=== PATIENT | male | born 1935 | race Caucasian/White ===

== ENCOUNTER 2020-02-12 13:23 | Outpatient (REF) | payer MEDICARE, SELFPAY | END 2020-02-12 13:24 | disposition home or self-care (01) | LOC: HO.LAB 13:23 | PROVIDERS: Visit Provider Internal Medicine | DX: Z20.828 Contact with and (suspected) exposure to other viral communicable diseases (principal) | CPT/HCPCS: C9803; U0003 ==

== ENCOUNTER 2020-03-05 12:51 | Inpatient (IN) | payer MEDICARE, SELFPAY ==
[2020-03-05 13:07] VITALS: BP 140/83; BP 144/70; PULSE 115; PULSE 54; RESP 20; TEMP 37.9; O2SAT 93; O2SAT 94; BMI 24.0
--- NOTE | 2020-03-05 13:11 | ED_ITS ---
HPI - General Adult General Chief complaint: General Medical Stated complaint: n/v/cp Time Seen by Provider: 03/05/20 13:44 Source: patient Mode of arrival: ambulatory Limitations: no limitations History of Present Illness HPI narrative: Patient presents to ED for body aches, fever, chills, chest pain, nausea, vomiting for the past 4 days. As per EMS report patient had exposure to COVID as per family members. Patient denies any dysuria or diarrhea. Related Data Allergies Allergy/AdvReac Type Severity Reaction Status Date / Time Penicillins [PENICILLINS] Allergy Unknown RASH Verified 03/05/20 13:11 Review of Systems Review of Systems: Yes all other systems are reviewed and are negative Constitutional: Constitutional: Reports as per HPI, Reports no additional constitutional complaints, Reports chills, Reports fatigue, Reports fever(s) and Reports headache(s) Eyes: Eyes: Reports as per HPI and Reports no additional eye complaints ENT: Reports system reviewed and no additional complaints, except as documented, Reports as per HPI and Reports headache(s) Cardiovascular: Cardiovascular: Reports as per HPI and Reports no additional cardiovascular complaints Respiratory: Respiratory: Reports as per HPI and Reports no additional respira tory complaints Gastrointestinal: Gastrointestinal: Reports as per HPI and Reports no additional gastrointestinal complaints Genitourinary: Genitourinary: Reports no additional male genitourinary complaints and Reports as per HPI Musculoskeletal: Musculoskeletal: Reports no additional musculoskeletal complaints and Reports as per HPI Neurologic: Reports system reviewed and no additional complaints, except as documented, Reports as per HPI and Reports headache(s) Psychiatric: Psychiatric: Reports no additional psychiatric complaints and Reports as per HPI Endocrine: Endocrine: Reports fatigue PMFSH Social History Social History Alcohol intake: never Smoked in Last 30 Days: No Use of substances other than those prescribed or required for medical reasons: No Advance Directives: No Advance Directives Information Provided: No Physical Exam Vital Signs: Vital Signs: Last Vital Signs Temp 99.3 F 03/05/20 15:14 Pulse 102 H 03/05/20 15:14 Resp 21 H 03/05/20 15:14 BP 120/75 03/05/20 15:14 Pulse Ox 96 03/05/20 15:14 Body Mass Index 24.0 Const: General: cooperative and acute distress Orientation/consciousness: patient oriented x3 HENMT: Head: Yes normal to inspection and Yes No palpable skull fracture present Eyes: Other: Negative for photophobia. General: appearance normal, both eyes and all related structures Neck: Neck: Yes normal visual inspection, Yes full ROM, Yes no lymphade nopathy, Yes no meningeal signs, Yes trachea midline, Yes supple and No tender Chest: Chest palpation & inspection: normal inspection of the chest and normal palpation of entire chest wall Resp: Effort & Inspection: normal respiratory effort and able to speak in complete sentences Auscultation: clear to auscultation bilaterally Cardio: Jugular venous distension: no JVD Heart sounds: S1 normal heart sound present and S2 normal heart sound present GI: Inspection: Yes normal to inspection and No abdominal wall ecchymosis Palpation (GI): Soft to palpation, not firm, nontender, no guarding and not rigid : General: No CVA tenderness and Yes no CVA tenderness Back/Spine/Pelvis: Back: no CVA tenderness, No CVA tenderness and No back tenderness Skin: General skin exam: no rashes or lesions noted Neuro: General: patient oriented x3, gait normal, no meningeal signs and CN's II-XI intact bilaterally Cranial nerves: Yes CN's II-XII intact bilaterally Extrem: General: Yes normal to inspection and Yes full ROM Psych: Appearance: grossly normal and well kempt Course Course Course Narrative: Seem like he is having viral syndrome. Will have labs, lactic acid, blood culture, chest x-ray, and COVID swab sent. Reevaluation(s) Reevaluation #1: Labs came back and shows LEI. Patient is coronavirus positive. Patient denies any shortness of breath. Will admit patient. Time: 14:40 Reevaluation #2: Case presented hospitalist for admission. Time: 15:26 Reevaluation #3: Hospitalist recommend V/Q scan due to elevated D-dimer and alt maame procalcitonin is normal and presently is a viral infection and no antibiotic indicated he recommended given patient Levaquin. Troponin ordered Time: 16:15 Medical Decision Making MDM Narrative Medical decision making narrative: COVID Lab Data Result diagrams: 03/05/20 13:29 03/05/20 13:29 Labs: Lab Results 03/05/20 03/05/20 03/05/20 Range/Units 13:29 13:29 13:29 WBC 3.9 L (4.8-10.8) X10*3/uL RBC 4.21 L (4.60-5.80) X10*6/uL Hgb 13.6 L (14.0-18.0) g/dl Hct 39.1 L (42-52) % MCV 92.9 (80-98) fL MCH 32.3 (27.0-33.0) pg MCHC 34.8 (31.0-36.0) g/dl RDW 12.6 (11.0-16.0) % Plt Count 152 L (160-400) X10*3/uL MPV 10.3 (9.4-12.4) fL Immature Gran % (Auto) 0.3 (0.0-0.4) % Neut % (Auto) 62.5 (45-73) % Lymph % (Auto) 20.0 (20-40) % Nicholas % (Auto) 16.9 H (2-11) % Eos % (Auto) 0.0 (0-4) % Baso % (Auto) 0.3 (0-2) % Lymph # (Auto) 0.8 L (1.2-4.9) X10*3/uL Nicholas # (Auto) 0.7 (0.1-1.2) X10*3/uL Eos # (Auto) 0.0 (0.0-0.4) X10*3/uL Baso # (Auto) 0.0 (0.0-0.2) X10*3/uL Abs Immat Gran (auto) 0.01 (0.00-0.03) X10*3/uL Absolute Neuts (auto) 2.4 (2.0-8.3) X10*3/uL Absolute Nucleated RBC 0.000 (0.0-0.012) X10*3/uL Nucleated RBC % (auto) 0.0 (0.0-0.2) /100WBC PT 13.2 H (10.8-13.0) SEC INR 1.1 (0.9-1.1) APTT 28.8 (24.1-38.0) SEC D-Dimer 382 NG/ML Sodium 127 L (135-145) mmol/L Potassium 4.3 (3.3-5.1) mmol/l Chloride 93 L (96-108) mmol/L Carbon Dioxide 18 L (22-29) mmol/L Anion Gap 20 (12-20) BUN 35 H (9-16) mg/dL Creatinine 1.41 H (0.5-1.4) mg/dL Estim Creat Clear Calc 35.1 Estimated GFR 48 Random Glucose 347 H (60-115) mg/dL Lactic Acid (0.5-2.0) mmol/L Calcium 8.3 L (8.4-10.2) mg/dL Ferritin 468 H (20-250) ng/mL Total Bilirubin 0.4 (0.0-1.0) mg/dL Direct Bilirubin 0.2 (0.0-0.5) mg/dL AST 33 (5-37) U/L ALT 37 (0-40) U/L Alkaline Phosphatase 61 (39-117) U/L Lactate Dehydrogenase 268 (118-273) U/L Total Protein 7.4 (6.5-8.0) g/dL Albumin 4.4 (3.5-5.0) g/dL Procalcitonin ng/mL Coronavirus (PCR) (Negative) Influenza Type A (PCR) (Negative) Influenza Type B (PCR) (Negative) RSV RNA Qual (PCR) (Negative) 03/05/20 03/05/20 03/05/20 Range/Units 13:29 13:44 13:44 WBC (4.8-10.8) X10*3/uL RBC (4.60-5.80) X10*6/uL Hgb (14.0-18.0) g/dl Hct (42-52) % MCV (80-98) fL MCH (27.0-33.0) pg MCHC (31.0-36.0) g/dl RDW (11.0-16.0) % Plt Count (160-400) X10*3/uL MPV (9.4-12.4) fL Immature Gran % (Auto) (0.0-0.4) % Neut % (Auto) (45-73) % Lymph % (Auto) (20-40) % Nicholas % (Auto) (2-11) % Eos % (Auto) (0-4) % Baso % (Auto) (0-2) % Lymph # (Auto) (1.2-4.9) X10*3/uL Nicholas # (Auto) (0.1-1.2) X10*3/uL Eos # (Auto) (0.0-0.4) X10*3/uL Baso # (Auto) (0.0-0.2) X10*3/uL Abs Immat Gran (auto) (0.00-0.03) X10*3/uL Absolute Neuts (auto) (2.0-8.3) X10*3/uL Absolute Nucleated RBC (0.0-0.012) X10*3/uL Nucleated RBC % (auto) (0.0-0.2) /100WBC PT (10.8-13.0) SEC INR (0.9-1.1) APTT (24.1-38.0) SEC D-Dimer NG/ML Sodium (135-145) mmol/L Potassium (3.3-5.1) mmol/l Chloride (96-108) mmol/L Carbon Dioxide (22-29) mmol/L Anion Gap (12-20) BUN (9-16) mg/dL Creatinine (0.5-1.4) mg/dL Estim Creat Clear Calc Estimated GFR Random Glucose (60-115) mg/dL Lactic Acid 1.3 (0.5-2.0) mmol/L Calcium (8.4-10.2) mg/dL Ferritin (20-250) ng/mL Total Bilirubin (0.0-1.0) mg/dL Direct Bilirubin (0.0-0.5) mg/dL AST (5-37) U/L ALT (0-40) U/L Alkaline Phosphatase (39-117) U/L Lactate Dehydrogenase (118-273) U/L Total Protein (6.5-8.0) g/dL Albumin (3.5-5.0) g/dL Procalcitonin 0.24 ng/mL Coronavirus (PCR) POSITIVE A (Negative) Influenza Type A (PCR) NEGATIVE (Negative) Influenza Type B (PCR) NEGATIVE (Negative) RSV RNA Qual (PCR) NEGATIVE (Negative) ECG Data Interpretation: Sinus tach with PVCs. Ventricular rate 115. SD interval 182. QRS 82. QTC 448 Discharge Plan Discharge Clinical Impression: COVID-19 Patient Disposition: Admitted As Inpatient
--- NOTE | 2020-03-05 13:15 | XR_ITS ---
EXAMINATION: XR CHEST CLINICAL INFORMATION: Covid exposure. COMPARISON: Chest 09/09/2018. TECHNIQUE: Frontal view of the chest was obtained. FINDINGS: The lungs are hypoexpanded with bilateral parahilar increased markings and bandlike density in both midlungs likely infiltrate or atelectasis. Outside and pulmonary vascularity is normal. No gross bony abnormality seen. XR/XR chest 1V IMPRESSION: Hypoexpanded lungs with bilateral midlung patchy infiltrate or atelectasis. The findings are new since 09/09/2018 exam.
[2020-03-05 13:50] LABS: MANUAL DIFF FLAG NO
[2020-03-05 13:52] LABS: Basophils Percent Auto 0.3 % (0-2); Hematocrit 39.1 % (42-52); Hemoglobin 13.6 g/dl (14.0-18.0); Imm Gran Abs Auto 0.01 X10*3/uL (0.00-0.03); Imm Gran Pct Auto 0.3 % (0.0-0.4); Lymphocytes Absolute Auto 0.8 X10*3/uL (1.2-4.9); Mean Corpuscular HGB Conc 34.8 g/dl (31.0-36.0); Mean Corpuscular Hemoglobin 32.3 pg (27.0-33.0); Mean Corpuscular Volume 92.9 fL (80-98); Mean Platelet Volume 10.3 fL (9.4-12.4); Monocytes Absolute Auto 0.7 X10*3/uL (0.1-1.2); Monocytes Percent Auto 16.9 % (2-11); Neutrophils Absolute Auto 2.4 X10*3/uL (2.0-8.3); Neutrophils Percent Auto 62.5 % (45-73); Platelet Count 152 X10*3/uL (160-400); Red Blood Count 4.21 X10*6/uL (4.60-5.80); Red Cell Distribution Width 12.6 % (11.0-16.0); White Blood Count 3.9 X10*3/uL (4.8-10.8)
[2020-03-05] MEDS: Acetaminophen 325 MG TABLET 650 MG PO ×2 (13:56→19:04)
[2020-03-05] MEDS: 0.9 % Sodium Chloride 1,000 ML 999 ML IV ×2 (13:56→17:24)
--- NOTE | 2020-03-05 13:56 | ECG_ITS ---
Test Reason : WEAKNESS Blood Pressure : / mmHG Vent. Rate : 115 BPM Atrial Rate : 115 BPM P-R Int : 182 ms QRS Dur : 082 ms QT Int : 324 ms P-R-T Axes : 041 -34 061 degrees QTc Int : 448 ms Sinus tachycardia with Premature supraventricular complexes Possible Left atrial enlargement Left axis deviation Abnormal ECG When compared with ECG of 21-OCT-2018 13:37, Premature supraventricular complexes are now Present AK interval has decreased Referred By: Paulo Wahl Electronically Signed By:GOSIA FLAHERTY MD
[2020-03-05 13:59] LABS: INTERNATIONAL NORM RATIO 1.1 (0.9-1.1); Prothrombin Time 13.2 SEC (10.8-13.0)
[2020-03-05 14:02] LABS: Partial Thromboplastin Time 28.8 SEC (24.1-38.0)
[2020-03-05 14:13] LABS: D Dimer 382 NG/ML
[2020-03-05 14:18] LABS: Alanine Aminotransferase 37 U/L (0-40); Albumin Level 4.4 g/dL (3.5-5.0); Alkaline Phosphatase 61 U/L (39-117); Anion Gap 20 (12-20); Aspartate Amino Transferase 33 U/L (5-37); Bilirubin Direct 0.2 mg/dL (0.0-0.5); Bilirubin Total 0.4 mg/dL (0.0-1.0); Blood Urea Nitrogen 35 mg/dL (9-16); Calcium 8.3 mg/dL (8.4-10.2); Carbon Dioxide 18 mmol/L (22-29); Chloride 93 mmol/L (96-108); Creatinine Clr Calc Pharmacy 35.1; Estimated Glomerular Filt Rate 48; Glucose Random 347 mg/dL (60-115); Lactate Dehydrogenase 268 U/L (118-273); Potassium 4.3 mmol/l (3.3-5.1); Sodium 127 mmol/L (135-145); Total Protein 7.4 g/dL (6.5-8.0)
[2020-03-05 14:21] LABS: Lactic Acid 1.3 mmol/L (0.5-2.0)
[2020-03-05 14:29] LABS: Influenza A PCR NEGATIVE (Negative); Influenza B PCR NEGATIVE (Negative); Resp Syncy Virus RNA Qual PCR NEGATIVE (Negative); SARS COV2 PCR INHOUSE POSITIVE (Negative)
[2020-03-05 14:38] LABS: Ferritin 468 ng/mL (20-250)
[2020-03-05 14:43] LABS: Procalcitonin 0.24 ng/mL
[2020-03-05 15:14] VITALS: BP 120/75; PULSE 102; RESP 21; TEMP 37.4; O2SAT 96
--- NOTE | 2020-03-05 15:46 | NM_ITS ---
EXAMINATION: NM LUNG IMAGE PERFUSION CLINICAL INFORMATION: Positive]. Elevated d-dimer COMPARISON: Chest x-ray 03/05/2020 TECHNIQUE: Following intravenous administration of 3 mCi of 90 9M technetium MAA, imaging of both lungs are obtained. No ventilation study was performed. FINDINGS: On perfusion scan there is normal flow seen through all segments of both lungs without any segmental or subsegmental defects. NM/NM pul perfusion IMPRESSION: Normal perfusion scan. Ventilation study was not performed.
--- NOTE | 2020-03-05 16:32 | PC.NURSE ---
to nuc med.
--- NOTE | 2020-03-05 17:00 | P.HPHOSP_ITS ---
History of Present Illness Date of Service: 03/05/20 Chief Complaint: Patient came to the hospital because of generalized weakness, headaches. 85-year-old male with past mostly medical history: Osteoarthritis , migraine headache, asthma, depression, hypertension, hyperlipidemia, diabetes, also history of costochondritis: Patient came to the hospital because having 3-4 days history of myalgias , generalized weakness, poor oral intake, headaches. He says that he was feeling fine until 4 days ago when he started having these symptoms, in addition he denies any sick contacts or anybody in the family had similar symptoms. He has feels chilly but today he denies taking temperature at home so he does now if he had and temperature. He denies shortness of breath, chest pain or abdominal pain or any weakness or numbness or blurry vision. Headaches villanueva he says that he feels like his migraine headaches, in addition he does not feel like eating from last 4 days he says that he was feeling no like no appetite , myalgias villanueva he describes whole body pains. He says that he is generally feeling extremely weak. Due to above issues he decided to come to the hospital: Seen by ED physician lab imaging reviewed: Main issues are mild hyponatremia, hyperglycemia, LEI, cast positive and also chest x-ray shows bilateral opacities also. So patient is subsequently being admitted for above issues. Past medical history: Please see above as per HPI. Osteoarthritis , migraine headache, asthma, depression, hypertension, hyperlipidemia, diabetes, also history of costochondritis. Past surgical history: None. Social history patient lives at home? Alone, no smoking or recreational drug use or alcohol use. Ambulates with cane Allergy villanueva patient says he has penicillin allergy but could not able to expla in further. Family history villanueva: Denies any family history pertinent to current visit, denies any hypertension asthma or anybody with similar symptoms. Code status: Full code Review of Systems Constitutional: Constitutional: Reports headache(s) ENT: Reports headache(s) Neurologic: Reports system reviewed and no additional complaints, except as documented, Reports as per HPI and Reports headache(s) [facility] Medical History Asthma Diabetes HTN (hypertension) Hyperlipidemia Migraine Osteoarthritis Family history: reviewed and not pertinent Social History Household Members: None Housing: Apartment Do you presently have visiting nurse or other home services: Yes (pt states he has a [employer]) Alcohol intake: never Smoking Status: Never smoker Smoked in Last 30 Days: No Use of substances other than those prescribed or required for medical reasons: No Currently Displaying Signs/Symptoms of Drug Intoxication Withdrawal: No Have you been hit, kicked, punched, or otherwise hurt by someone within the past year? If so, by whom?: No Do you feel safe in your current relationship?: No Current Relationship Is there a partner from a previous relationship who is making you feel unsafe now?: No Are you made to feel afraid or neglected: No Tenriism Healthcare Practices: Caodaism Advance Directives: No Advance Directives Information Provided: No Do you have thoughts of harming others: None Do you have a plan to hurt others: No Plan Recently lost weight without trying: No service: No Current occupational status: retired Meds Allergies Allergy/AdvReac Type Severity Reaction Status Date / Time Penicillins [PENICILLINS] Allergy Unknown RASH Verified 03/05/20 13:11 Home Medications Medication Instructions Recorded Confirmed Type amlodipine 1 tab PO DAILY 03/05/20 03/05/20 History aspirin 1 tab PO DAILY 03/05/20 03/05/20 History calcium carbonate-vitamin D3 1 tab PO BID 03/05/20 03/05/20 History docusate sodium [Stool Softener] 100 mg PO BID PRN 03/05/20 03/05/20 History ferrous sulfate 1 tab PO BID 03/05/20 03/05/20 History fluticasone propionate 2 spray INTRANASAL DAILY PRN 03/05/20 03/05/20 History fluticasone propionate [Flovent 2 puff INHALATION BID 03/05/20 03/05/20 History HFA] hydrochlorothiazide 1 tab PO QAM 03/05/20 03/05/20 History melatonin 1 tab PO BEDTIME PRN 03/05/20 03/05/20 History metformin 1 tab PO BID 03/05/20 03/05/20 History metoprolol tartrate 1 tab PO BID 03/05/20 03/05/20 History montelukast 1 tab PO DAILY 03/05/20 03/05/20 History omeprazole 1 cap PO DAILY 03/05/20 03/05/20 History pravastatin 1 tab PO DAILY 03/05/20 03/05/20 History Physical Exam Vital Signs and Narrative: Vital Signs: Last Vital Signs Temp 99.3 F 03/05/20 15:14 Pulse 102 H 03/05/20 15:14 Resp 21 H 03/05/20 15:14 BP 120/75 03/05/20 15:14 Pulse Ox 96 03/05/20 15:14 Body Mass Index 24.0 Physical exam: Constitutional: Not in acute distress but seems generalized weak. HEENT: Eyes are anicteric, no discharge Cardiovascular: Regular rate and rhythm, S1-S2 heard, no murmur. res: Fair air entry, slightly diminished at bases, no rales or wheezing. abd: no rebound or guarding ,nt, bs present. ext pulses present , no cyanosis neuro: axo3 , nonfocal. Muscular cutaneous villanueva: No deformity, range of motion intact, though have myalgias Skin: Warm, dry, no rashes. Results Labs CBC and Chem 7: 03/06/20 05:51 03/06/20 05:51 Labs: Laboratory Results - last 24 hr 03/05/20 03/05/20 03/05/20 13:29 13:29 13:29 MCV 92.9 MCH 32.3 MCHC 34.8 RDW 12.6 Plt Count 152 L MPV 10.3 Immature Gran % (Auto) 0.3 Neut % (Auto) 62.5 Lymph % (Auto) 20.0 Moody % (Auto) 16.9 H Eos % (Auto) 0.0 Baso % (Auto) 0.3 Lymph # (Auto) 0.8 L Moody # (Auto) 0.7 Eos # (Auto) 0.0 Baso # (Auto) 0.0 Abs Immat Gran (auto) 0.01 Absolute Neuts (auto) 2.4 Absolute Nucleated RBC 0.000 Nucleated RBC % (auto) 0.0 PT 13.2 H INR 1.1 APTT 28.8 D-Dimer 382 Anion Gap 20 Estim Creat Clear Calc 35.1 Estimated GFR 48 Random Glucose 347 H Lactic Acid Calcium 8.3 L Ferritin 468 H Total Bilirubin 0.4 Direct Bilirubin 0.2 AST 33 ALT 37 Alkaline Phosphatase 61 Lactate Dehydrogenase 268 Total Protein 7.4 Albumin 4.4 Procalcitonin Coronavirus (PCR) Influenza Type A (PCR) Influenza Type B (PCR) RSV RNA Qual (PCR) 03/05/20 03/05/20 03/05/20 13:29 13:44 13:44 MCV MCH MCHC RDW Plt Count MPV Immature Gran % (Auto) Neut % (Auto) Lymph % (Auto) Moody % (Auto) Eos % (Auto) Baso % (Auto) Lymph # (Auto) Moody # (Auto) Eos # (Auto) Baso # (Auto) Abs Immat Gran (auto) Absolute Neuts (auto) Absolute Nucleated RBC Nucleated RBC % (auto) PT INR APTT D-Dimer Anion Gap Estim Creat Clear Calc Estimated GFR Random Glucose Lactic Acid 1.3 Calcium Ferritin Total Bilirubin Direct Bilirubin AST ALT Alkaline Phosphatase Lactate Dehydrogenase Total Protein Albumin Procalcitonin 0.24 Coronavirus (PCR) POSITIVE A Influenza Type A (PCR) NEGATIVE Influenza Type B (PCR) NEGATIVE RSV RNA Qual (PCR) NEGATIVE Imaging Radiologist's Impressions: Impressions Chest X-Ray 03/05/20 13:15 IMPRESSION: Hypoexpanded lungs with bilateral midlung patchy infiltrate or atelectasis. The findings are new since 09/09/2018 exam. Assessment and Plan (1) COVID-19: Status: Acute 1. COVID pneumonia: Ferritin, D-dimer high Lactic acid normal Procalcitonin 0.24 v/q scan seems normal. Started on dexamethasone. Isolated room, patient was also given Levaquin as per ED. blood culture x2 pending Id evaluation 2. LEI: given ivf in ed , will moniter bmp 3. dm with hyperglycemia: Monitor fingersticks closely And hemoglobin A1c Diabetic diet 4.Htn: Blood pressure is stable, will hold off on blood pressure medications since patient is not eating well and has stable blood pressure currently. 5. Asthma villanueva: continue home flovent, sigular 6. Hyponatremia mild: When adjusted for hyperglycemia sodium level is around 131. Will continue to monitor, serum and urine osmolality added. dvt : prophylax with lovenox.
[2020-03-05 17:10] LABS: Osmolality, Serum 288 mosm/kg (281-305)
[2020-03-05] MEDS: levoFLOXacin/D5W 500 MG/100 ML PIGGYBACK 100 MG IV (17:24)
[2020-03-05] MEDS: dexAMETHasone sod phosphate 4 MG/ML VIAL 6 MG IVPUSH (17:24)
[2020-03-05 17:31] VITALS: BP 133/84; PULSE 104; RESP 20; TEMP 37.5; O2SAT 96
[2020-03-05 18:47] VITALS: BP 145/84; PULSE 103; RESP 22; TEMP 37.4; O2SAT 96
[2020-03-05 19:18] LABS: Glucose Urine UA 500 MG/DL (NEG); Leukocyte Esterase Urine NEG (NEG); Nitrite Urine NEG (NEG); PH 5.5 (5.0-8.0); Specific Gravity - Urine 1.025 (1.005-1.025); Urine Blood 1+ (NEG); Urine Ketones 15 MG/DL (NEG); Urine Protein 1+ MG/DL (NEG-TRACE)
[2020-03-05 19:21] LABS: Appearance Urine CLEAR; Color Urine YELLOW
[2020-03-05 19:48] LABS: Amorphous Sediment Urine 1+ /LPF; RBC Urine 0-2 /HPF (0); WBC Urine 0 /HPF (0-4)
[2020-03-05 20:00] VITALS: BP 145/83; PULSE 102; RESP 18; TEMP 37.5; O2SAT 97
[2020-03-05 20:26] LABS: Glucose, Whole Blood 291 mg/dL (60-115)
[2020-03-05 20:48] VITALS: BMI 22.8
[2020-03-05] MEDS: Ferrous Sulfate 324 MG TABLET.DR PO (21:28)
[2020-03-05] MEDS: Fluticasone Propionate 100 MCG BLST.W.DEV 2 PUFF INHALE (21:28)
[2020-03-05] MEDS: Calcium + Vitamin D 250 MG TABLET PO (21:28)
[2020-03-05] MEDS: Metoprolol Tartrate 25 MG TABLET PO (21:29)
[2020-03-05 21:52] LABS: Troponin-I High Sensitivity 21.8 ng/L (<3.5-35.0)
[2020-03-05] MEDS: Insulin Lispro 100 UNIT/ML 3 ML VIAL SUBCUT (22:07)
[2020-03-05] MEDS: 0.9 % Sodium Chloride Flush 3 ML SYRINGE IVFLUSH (22:08)
[2020-03-05 23:33] VITALS: BP 148/85; PULSE 81; RESP 18; TEMP 37; O2SAT 95
[2020-03-06] VITALS (12 sets, daily range): BP systolic 110–174; BP diastolic 62–91; PULSE 80–135; RESP 18–19; TEMP 35.8–37.4; O2SAT 92–99
[2020-03-06] MEDS: Acetaminophen 325 MG TABLET 650 MG PO ×3 (03:47→23:56)
[2020-03-06] MEDS: Omeprazole 20 MG CAPSULE.DR PO (05:25)
[2020-03-06 06:52] LABS: Hematocrit 36.9 % (42-52); Mean Corpuscular HGB Conc 35.2 g/dl (31.0-36.0); Mean Corpuscular Hemoglobin 32.3 pg (27.0-33.0); Mean Corpuscular Volume 91.8 fL (80-98); Mean Platelet Volume 10.8 fL (9.4-12.4); Platelet Count 152 X10*3/uL (160-400); Red Blood Count 4.02 X10*6/uL (4.60-5.80); Red Cell Distribution Width 12.3 % (11.0-16.0); White Blood Count 3.9 X10*3/uL (4.8-10.8)
[2020-03-06 07:03] LABS: Anion Gap 19 (12-20); Blood Urea Nitrogen 27 mg/dL (9-16); Carbon Dioxide 17 mmol/L (22-29); Chloride 97 mmol/L (96-108); Creatinine Clr Calc Pharmacy 47.7; Estimated Glomerular Filt Rate > 60; Glucose Random 254 mg/dL (60-115); Sodium 129 mmol/L (135-145)
[2020-03-06 07:43] LABS: Glucose, Whole Blood 209 mg/dL (60-115)
[2020-03-06 07:45] LABS: Estimated Average Glucose 249 mg/dL; Hemoglobin A1c % 10.3 %
[2020-03-06] MEDS: Insulin Lispro 100 UNIT/ML 3 ML VIAL SUBCUT ×4 (07:57→20:29)
[2020-03-06] MEDS: 0.9 % Sodium Chloride Flush 3 ML SYRINGE IVFLUSH ×3 (07:57→20:29)
[2020-03-06] MEDS: Ferrous Sulfate 324 MG TABLET.DR PO ×2 (07:58→20:29)
[2020-03-06] MEDS: Metoprolol Tartrate 25 MG TABLET PO ×2 (07:58→20:29)
[2020-03-06] MEDS: Aspirin Enteric Coated 81 MG TABLET.DR PO (07:58)
[2020-03-06] MEDS: Montelukast Sodium 10 MG TABLET PO (07:58)
[2020-03-06] MEDS: Pravastatin Sodium 10 MG TABLET PO (07:59)
[2020-03-06] MEDS: Calcium + Vitamin D 250 MG TABLET PO ×2 (07:59→20:30)
[2020-03-06 11:26] LABS: Glucose, Whole Blood 226 mg/dL (60-115)
--- NOTE | 2020-03-06 12:16 | MHC.CM.PN ---
IMM 03/06/2020 male dx covid He lives alone with assist from [employer]. He is Nepalese speaking. Per wastewater supervisor he was not able to answer questions. A call was made to Arabella Rao, his contact. She says that he is usually oriented and uses a cane or walker prn. DP home with [facility] [employer]. CM will follow to assess for change in dc needs. BLS transportation.
--- NOTE | 2020-03-06 13:41 | P.PNIM_ITS ---
Subjective Subjective Date of Service: 03/07/20 Interval History: COVID pneumonia, poor alert oral intake Review of Systems Patient still look weak and could able to eat only little bit. Seems so far alert oriented and could able to answer simple questions Physical Exam Vital Signs: Vital Signs: Last Vital Signs Temp 97.7 F 03/06/20 11:19 Pulse 98 03/06/20 11:19 Resp 18 03/06/20 11:19 BP 129/76 03/06/20 11:19 Pulse Ox 96 03/06/20 11:19 Body Mass Index 22.8 Physical exam: Constitutional: Seems generalized weak Cvs: rrr, [id number] , no murmur res: fair air entry, slightly diminshed at bases . abd: no rebound or guarding ,nt, bs present. ext pulses present , no cyanosis neuro: axo3 , nonfocal. Objective Data Current Medications Generic Name Dose Route Start Last Admin Trade Name Freq PRN Reason Stop Dose Admin Acetaminophen 650 mg 03/05/20 16:50 03/06/20 03:47 Acetaminophen 325 Mg Tablet PO 650 mg RQ6H PRN Administration HEADACHES , Aspirin 81 mg 03/06/20 09:00 03/06/20 07:58 Aspirin Enteric Coated 81 Mg Tablet. PO 81 mg DAILY ACE Administration Calcium Carbonate/Cholecalciferol 250 mg 03/05/20 21:00 03/06/20 07:59 Calcium + Vitamin D 250 Mg Tablet PO 250 mg BID ACE Administration Docusate Sodium 100 mg 03/05/20 17:25 Docusate Sodium 100 Mg Capsule PO BID PRN Constipation Enoxaparin Sodium 40 mg 03/05/20 16:50 03/05/20 21:33 Enoxaparin Sodium 40 Mg/0.4 Ml Syringe SUBCUT Not Given Q24H [facility] Ferrous Sulfate 324 mg 03/05/20 21:00 03/06/20 07:58 Ferrous Sulfate 324 Mg Tablet. PO 324 mg BID ACE Administration Fluticasone Propionate 2 spray 03/05/20 17:25 Fluticasone Propionate Nasal 16 Gm Thrall NOSTRIL-B DAILY PRN Nasal Congestion Fluticasone Propionate 2 puff 03/05/20 20:00 03/05/20 21:28 Fluticasone Propionate 100 Mcg Blst.W.Dev INHALE 2 puff RBID ACE Administration Insulin Human Lispro 0 unit 03/05/20 21:00 03/06/20 12:00 Insulin Lispro 100 Unit/Ml 3 Ml Vial SUBCUT 4 unit QIDACHS [facility] Administration Protocol Melatonin 6 mg 03/06/20 21:00 Melatonin 3 Mg Tablet PO BEDTIME PRN Insomnia Metoprolol Tartrate 25 mg 03/05/20 21:00 03/06/20 07:58 Metoprolol Tartrate 25 Mg Tablet PO 25 mg BID ACE Administration Protocol Montelukast Sodium 10 mg 03/06/20 09:00 03/06/20 07:58 Montelukast Sodium 10 Mg Tablet PO 10 mg DAILY ACE Administration Omeprazole 20 mg 03/06/20 06:30 03/06/20 05:25 Omeprazole 20 Mg Capsule. PO 20 mg DAILY@0630 [facility] Administration Pharmacy Consult 1 each 03/05/20 16:16 Consult Rx Perform Med Rec MISCELLANE ONCE PRN Consult order Pravastatin Sodium 10 mg 03/06/20 09:00 03/06/20 07:59 Pravastatin Sodium 10 Mg Tablet PO 10 mg DAILY ACE Administration Sodium Chloride 3 ml 03/06/20 00:00 03/06/20 07:57 0.9 % Sodium Chloride Flush 3 Ml Syringe IVFLUSH 3 ml QSHIFT [facility] Administration Labs CBC & Chem 7: 03/07/20 06:09 03/07/20 06:09 Assessment and Plan (1) COVID-19: Status: Acute Assessment and Plan: 1. COVID pneumonia: Ferritin, D-dimer high Lactic acid normal Procalcitonin 0.24 v/q scan seems normal. Started on dexamethasone. Isolated room, patient was also given Levaquin as per ED. blood culture x2 pending Id evaluation pending Will check if the patient is hypoxic than may need to add remdesivir 2. LEI: given ivf in ed LEI seems to be improved Will monitor BMP closely. 3. dm with hyperglycemia:uncontrolled Monitor fingersticks closely with coverage hemoglobin A1c Diabetic diet 4.Htn: Blood pressure is stable, will hold off on blood pressure medications since patient is not eating well and has stable blood pressure currently. 5. Asthma villanueva: continue home flovent, singular 6. Hyponatremia mild: When adjusted for hyperglycemia sodium level is around 131. Will continue to monitor, serum and urine osmolality added. addm: patient is slowly becoming more weak and tachycardic - seems dehydration due to poor oral inatke /dehydration , also ? superimposed bacterial pneumonia , procalcitonin is 0.24: d/w Dr leal -added cefepime , blood cultures and lactic acid , if becomes hypoxic then we need to add remdesvir ( night staff is aware to fu labs and patient clinically). dvt : prophylax with lovenox.
[2020-03-06 16:04] LABS: Glucose, Whole Blood 259 mg/dL (60-115)
[2020-03-06] MEDS: Enoxaparin Sodium 40 MG/0.4 ML SYRINGE SUBCUT (16:51)
[2020-03-06] MEDS: Sodium Chloride 0.45 % 1,000 ML 80 ML IVCONT (17:55)
[2020-03-06] MEDS: dexAMETHasone sod phosphate 4 MG/ML VIAL 6 MG IVPUSH (18:35)
[2020-03-06 19:32] LABS: Lactic Acid 1.2 mmol/L (0.5-2.0)
[2020-03-06] MEDS: cefEPime HCl 1 GM in 0.9 % Sodium Chloride 50 ML IV (19:39)
[2020-03-06 19:43] LABS: Glucose, Whole Blood 223 mg/dL (60-115)
[2020-03-06] MEDS: Fluticasone Propionate 100 MCG BLST.W.DEV 2 PUFF INHALE (20:11)
[2020-03-07] VITALS (8 sets, daily range): BP systolic 111–131; BP diastolic 69–85; PULSE 78–94; RESP 17–18; TEMP 36.3–36.8; O2SAT 91–96
[2020-03-07] MEDS: Omeprazole 20 MG CAPSULE.DR PO (05:32)
[2020-03-07] MEDS: traMADoL HCL 50 MG TABLET PO (06:03)
[2020-03-07] MEDS: Sodium Chloride 0.45 % 1,000 ML 80 ML IVCONT (06:03)
[2020-03-07 06:56] LABS: Hematocrit 37.7 % (42-52); Mean Corpuscular HGB Conc 34.5 g/dl (31.0-36.0); Mean Corpuscular Hemoglobin 32.3 pg (27.0-33.0); Mean Corpuscular Volume 93.5 fL (80-98); Mean Platelet Volume 11.7 fL (9.4-12.4); Platelet Count 113 X10*3/uL (160-400); Red Blood Count 4.03 X10*6/uL (4.60-5.80); Red Cell Distribution Width 12.5 % (11.0-16.0); White Blood Count 3.8 X10*3/uL (4.8-10.8)
[2020-03-07 07:27] LABS: Glucose, Whole Blood 212 mg/dL (60-115)
[2020-03-07 07:28] LABS: Anion Gap 20 (12-20); Blood Urea Nitrogen 33 mg/dL (9-16); Carbon Dioxide 16 mmol/L (22-29); Chloride 97 mmol/L (96-108); Creatinine Clr Calc Pharmacy 45.1; Estimated Glomerular Filt Rate > 60; Glucose Random 212 mg/dL (60-115); Potassium 4.9 mmol/l (3.3-5.1); Sodium 128 mmol/L (135-145)
[2020-03-07] MEDS: Fluticasone Propionate 100 MCG BLST.W.DEV 2 PUFF INHALE (08:14)
[2020-03-07] MEDS: 0.9 % Sodium Chloride Flush 3 ML SYRINGE IVFLUSH ×3 (09:34→23:47)
[2020-03-07] MEDS: Insulin Lispro 100 UNIT/ML 3 ML VIAL SUBCUT ×4 (09:34→21:42)
[2020-03-07] MEDS: cefEPime HCl 1 GM in 0.9 % Sodium Chloride 50 ML IV (09:34)
[2020-03-07] MEDS: Aspirin Enteric Coated 81 MG TABLET.DR PO (09:35)
[2020-03-07] MEDS: dexAMETHasone sod phosphate 4 MG/ML VIAL 6 MG IVPUSH (09:35)
[2020-03-07] MEDS: Metoprolol Tartrate 25 MG TABLET PO ×2 (09:35→21:44)
[2020-03-07] MEDS: Montelukast Sodium 10 MG TABLET PO (09:35)
[2020-03-07] MEDS: Pravastatin Sodium 10 MG TABLET PO (09:36)
[2020-03-07] MEDS: Ferrous Sulfate 324 MG TABLET.DR PO ×2 (09:36→21:44)
[2020-03-07] MEDS: Calcium + Vitamin D 250 MG TABLET PO ×2 (09:36→21:44)
--- NOTE | 2020-03-07 11:04 | P.PNIM_ITS ---
Subjective Subjective Date of Service: 03/07/20 Interval History: Decreased appetite Cardiovascular Cardiovascular: Reports no additional cardiovascular complaints Respiratory Respiratory: Reports no additional respiratory complaints Physical Exam Vital Signs: Vital Signs: Last Vital Signs Temp 98.3 F 03/07/20 07:22 Pulse 94 03/07/20 09:35 Resp 18 03/07/20 07:22 BP 118/76 03/07/20 09:35 Pulse Ox 91 L 03/07/20 07:22 Body Mass Index 22.8 General: lethargic, no acute distress Resp: CTA bilateral CVS: S1,S2,RRR GI: soft, non tender, non distended Neuro: motor grossly intact Psych: appropriate affect Objective Data Current Medications Generic Name Dose Route Start Last Admin Trade Name Freq PRN Reason Stop Dose Admin Acetaminophen 650 mg 03/05/20 16:50 03/06/20 23:56 Acetaminophen 325 Mg Tablet PO 650 mg RQ6H PRN Administration HEADACHES , Aspirin 81 mg 03/06/20 09:00 03/07/20 09:35 Aspirin Enteric Coated 81 Mg Tablet. PO 81 mg DAILY [facility] Administration Calcium Carbonate/Cholecalciferol 250 mg 03/05/20 21:00 03/07/20 09:36 Calcium + Vitamin D 250 Mg Tablet PO 250 mg BID [facility] Administration Dexamethasone Sodium Phosphate 6 mg 03/07/20 09:00 03/07/20 09:35 Dexamethasone Sod Phosphate 4 Mg/Ml Vial IVPUSH 6 mg DAILY [facility] Administration Docusate Sodium 100 mg 03/05/20 17:25 Docusate Sodium 100 Mg Capsule PO BID PRN Constipation Enoxaparin Sodium 40 mg 03/05/20 16:50 03/06/20 16:51 Enoxaparin Sodium 40 Mg/0.4 Ml Syringe SUBCUT 40 mg Q24H ACE Administration Ferrous Sulfate 324 mg 03/05/20 21:00 03/07/20 09:36 Ferrous Sulfate 324 Mg Tablet. PO 324 mg BID [facility] Administration Fluticasone Propionate 2 spray 03/05/20 17:25 Fluticasone Propionate Nasal 16 Gm [place] NOSTRIL-B DAILY PRN Nasal Congestion Fluticasone Propionate 2 puff 03/05/20 20:00 03/07/20 08:14 Fluticasone Propionate 100 Mcg Blst.W.Dev INHALE 2 puff RBID ACE Administration Cefepime HCl 1 gm/ Sodium 50 mls @ 100 mls/hr 03/06/20 19:00 03/07/20 10:57 Chloride IV Infused Q12H [facility] Infusion Insulin Human Lispro 0 unit 03/05/20 21:00 03/07/20 09:34 Insulin Lispro 100 Unit/Ml 3 Ml Vial SUBCUT 4 unit QIDACHS [facility] Administration Protocol Melatonin 6 mg 03/06/20 21:00 Melatonin 3 Mg Tablet PO BEDTIME PRN Insomnia Metoprolol Tartrate 25 mg 03/05/20 21:00 03/07/20 09:35 Metoprolol Tartrate 25 Mg Tablet PO 25 mg BID [facility] Administration Protocol Montelukast Sodium 10 mg 03/06/20 09:00 03/07/20 09:35 Montelukast Sodium 10 Mg Tablet PO 10 mg DAILY [facility] Administration Omeprazole 20 mg 03/06/20 06:30 03/07/20 05:32 Omeprazole 20 Mg Capsule. PO 20 mg DAILY@0630 [facility] Administration Pharmacy Consult 1 each 03/05/20 16:16 Consult Rx Perform Med Rec MISCELLANE ONCE PRN Consult order Pravastatin Sodium 10 mg 03/06/20 09:00 03/07/20 09:36 Pravastatin Sodium 10 Mg Tablet PO 10 mg DAILY [facility] Administration Sodium Chloride 3 ml 03/06/20 00:00 03/07/20 09:34 0.9 % Sodium Chloride Flush 3 Ml Syringe IVFLUSH 3 ml QSHIFT [facility] Administration Labs CBC & Chem 7: 03/07/20 06:09 03/07/20 06:09 Microbiology Microbiology Results: Microbiology 03/05/20 13:44 Blood - Venous Blood Culture - Preliminary No growth after 24 hours. 03/05/20 13:29 Blood - Venous Blood Culture - Preliminary No growth after 24 hours. Assessment and Plan (1) COVID-19: Status: Acute Assessment and Plan: 85-year-old male presented with lethargy found to have COVID pneumonia Acute hypoxic respiratory failure secondary to COVID pneumonia conitnue decadron Patient presenting more with apathy and anorexia Monitor electrolytes per id continue cefepime to cover bacterial pna Acute kidney injury Resolved Diabetes Insulin Asthma Continue Flovent and singular
[2020-03-07 11:31] LABS: Glucose, Whole Blood 239 mg/dL (60-115)
[2020-03-07] MEDS: Acetaminophen 325 MG TABLET 650 MG PO ×2 (12:01→18:34)
--- NOTE | 2020-03-07 16:09 | W.PM.IDCN ---
History of Present Illness Data of Consult Service Date: 03/07/20 Requesting physician: Rayo Cox Primary Care Provider: Merna Duggan MD HPI Reason for consult: COVID He has 4 days of chills and myalgias with fever He has mild cough He has exposure to family members with COVID CXR some atelectasis/consistent infiltrate with COVID Review of Systems Constitutional: Constitutional: Reports headache(s) ENT: Reports headache(s) Neurologic: Reports system reviewed and no additional complaints, except as documented, Reports as per HPI and Reports headache(s) PMFSH Past Medical History Medical History Asthma Diabetes HTN (hypertension) Hyperlipidemia Migraine Osteoarthritis Family History Family history: reviewed and not pertinent Social History Social History Household Members: None Housing: Apartment Do you presently have visiting nurse or other home services: Yes (pt states he has a [employer]) Alcohol intake: never Smoking Status: Never smoker Smoked in Last 30 Days: No Use of substances other than those prescribed or required for medical reasons: No Currently Displaying Signs/Symptoms of Drug Intoxication Withdrawal: No Have you been hit, kicked, punched, or otherwise hurt by someone within the past year? If so, by whom?: No Do you feel safe in your current relationship?: No Current Relationship Is there a partner from a previous relationship who is making you feel unsafe now?: No Are you made to feel afraid or neglected: No Roman [employer] Healthcare Practices: Shinto Advance Directives: No Advance Directives Information Provided: No Do you have thoughts of harming others: None Do you have a plan to hurt others: No Plan Recently lost weight without trying: No service: No Current occupational status: retired Meds Allergies Allergy/AdvReac Type Severity Reaction Status Date / Time Penicillins [PENICILLINS] Allergy Unknown RASH Verified 03/05/20 13:11 Home Medications Medication Instructions Recorded Confirmed Type amlodipine 1 tab PO DAILY 03/05/20 03/05/20 History aspirin 1 tab PO DAILY 03/05/20 03/05/20 History calcium carbonate-vitamin D3 1 tab PO BID 03/05/20 03/05/20 History docusate sodium [Stool Softener] 100 mg PO BID PRN 03/05/20 03/05/20 History ferrous sulfate 1 tab PO BID 03/05/20 03/05/20 History fluticasone propionate 2 spray INTRANASAL DAILY PRN 03/05/20 03/05/20 History fluticasone propionate [Flovent 2 puff INHALATION BID 03/05/20 03/05/20 History HFA] hydrochlorothiazide 1 tab PO QAM 03/05/20 03/05/20 History melatonin 1 tab PO BEDTIME PRN 03/05/20 03/05/20 History metformin 1 tab PO BID 03/05/20 03/05/20 History metoprolol tartrate 1 tab PO BID 03/05/20 03/05/20 History montelukast 1 tab PO DAILY 03/05/20 03/05/20 History omeprazole 1 cap PO DAILY 03/05/20 03/05/20 History pravastatin 1 tab PO DAILY 03/05/20 03/05/20 History Physical Exam Vital Signs: Vital Signs: Last Vital Signs Temp 98 F 03/07/20 15:12 Pulse 92 03/07/20 15:12 Resp 17 03/07/20 15:12 BP 121/69 03/07/20 15:12 Pulse Ox 91 L 03/07/20 15:12 Body Mass Index 22.8 Const: General: comfortable Orientation/consciousness: oriented to person, oriented to place and oriented to time HENMT: Head: Yes normal to inspection Ears: hearing grossly normal bilaterally Mouth: Normal oral and palatal mucosa present Eyes: General: appearance normal, both eyes and all related structures Neck: Neck: Yes no meningeal signs Resp: Effort & Inspection: normal respiratory effort Cardio: Rate: regular rate Rhythm: regular rhythm GI: Inspection: Yes normal to inspection Palpation (GI): nontender : General: Yes no CVA tenderness Back/Spine/Pelvis: Back: no CVA tenderness Skin: General skin exam: no rashes or lesions noted Neuro: General: oriented to person, oriented to place, oriented to time and no meningeal signs Extrem: General: Yes full ROM Assessment and Plan (1) COVID-19: Problem details: He has acute symptoms with headaches predominant within 4 days He has no evidence of hypoxia He is on room air He has no lobar infiltrate,leukocytosis or productive sputum so no bacterial pneumonia likely Status: Acute Stop antibiotics No indication for Remdesivir,no oxygen requirement but can give if develops in next few days May give Dexamethasone Results Labs CBC & Chem 7: 03/07/20 06:09 03/07/20 06:09 Labs: Short CBC 03/07/20 Range/Units 06:09 WBC 3.8 L (4.8-10.8) X10*3/uL Hgb 13.0 L (14.0-18.0) g/dl Hct 37.7 L (42-52) % Plt Count 113 L D (160-400) X10*3/uL BMP 03/07/20 06:09 Sodium 128 L Potassium 4.9 D Chloride 97 Carbon Dioxide 16 L BUN 33 H Creatinine 1.10 Calcium 8.0 L Microbiology Microbiology Results: Microbiology 03/05/20 13:44 Blood - Venous Blood Culture - Preliminary No growth after 48 hours. 03/05/20 13:29 Blood - Venous Blood Culture - Preliminary No growth after 48 hours.
[2020-03-07 16:40] LABS: Glucose, Whole Blood 227 mg/dL (60-115)
[2020-03-07] MEDS: Enoxaparin Sodium 40 MG/0.4 ML SYRINGE SUBCUT (18:30)
--- NOTE | 2020-03-07 19:48 | MHC.PIE ---
P: headache, hx migraines. Confirmed w/ granddaughter. I: Patient medicated w/ PO tylenol x 2 @ 1201 & 1834. E: partial effect - patient resting comfortably - vss. no supplemental o2.
[2020-03-07 21:09] LABS: Glucose, Whole Blood 214 mg/dL (60-115)
[2020-03-08] VITALS (11 sets, daily range): BP systolic 108–159; BP diastolic 65–103; PULSE 96–122; RESP 18–22; TEMP 36.6–40.2; O2SAT 90–95; BMI 23.5
--- NOTE | 2020-03-08 03:33 | PC.NURSE ---
Patient's O2 was dropping to 87/88 while on room air around 0000 and sustaining. Put patient on 1 L NC and sats remained in high 80s. Increased O2 to 2 L and sats were between 90-92. About 30 minutes later, decreased O2 to 1 L NC, sats maintained between 90-92. Around 0330 this RN turned off O2 and patients sats dropped immediately to 88 on room air and sustained in the high 80s. Patient put back on 1 L NC, sats back to 92. Will continue to monitor and wean as tolerated.
[2020-03-08] MEDS: Omeprazole 20 MG CAPSULE.DR PO (05:36)
--- NOTE | 2020-03-08 06:21 | P.EN_ITS ---
Event Note Date of Service: 03/08/20 Event Note: Patient developed increased hypoxia, requiring oxygen, had a tempe rature of 104.4? rectally, lethargic. Patient is COVID-19 positive and currently on Decadron. Will start him on IV antibiotics, obtain lactic acid, CBC, blood cultures. Will give Tylenol rectally as patient is too lethargic to take p.o..
[2020-03-08] MEDS: Acetaminophen Supp 650 MG SUPP.RECT PR (06:37)
[2020-03-08] MEDS: cefTRIAXone sodium 1 GM in 0.9 % Sodium Chloride 50 ML IV (06:38)
[2020-03-08 06:59] LABS: MANUAL DIFF FLAG NO
[2020-03-08 07:08] LABS: Basophils Percent Auto 0.1 % (0-2); Hematocrit 41.3 % (42-52); Hemoglobin 14.5 g/dl (14.0-18.0); Imm Gran Abs Auto 0.02 X10*3/uL (0.00-0.03); Imm Gran Pct Auto 0.3 % (0.0-0.4); Lymphocytes Absolute Auto 0.8 X10*3/uL (1.2-4.9); Lymphocytes Percent Auto 10.2 % (20-40); Mean Corpuscular HGB Conc 35.1 g/dl (31.0-36.0); Mean Corpuscular Hemoglobin 32.3 pg (27.0-33.0); Mean Platelet Volume 10.4 fL (9.4-12.4); Monocytes Absolute Auto 0.7 X10*3/uL (0.1-1.2); Monocytes Percent Auto 9.2 % (2-11); Neutrophils Absolute Auto 6.1 X10*3/uL (2.0-8.3); Neutrophils Percent Auto 80.2 % (45-73); Platelet Count 170 X10*3/uL (160-400); Red Blood Count 4.49 X10*6/uL (4.60-5.80); Red Cell Distribution Width 12.3 % (11.0-16.0); White Blood Count 7.7 X10*3/uL (4.8-10.8)
[2020-03-08 07:16] LABS: Lactic Acid 1.5 mmol/L (0.5-2.0)
--- NOTE | 2020-03-08 07:31 | PC.NURSE ---
Patient noted to be lethargic when this RN went to give AM meds, chewing pill and unable to take sips of water. PT arousable to touch and voice but only opens eyes briefly and closes again. [employer] called and at bedside, Pt still only opening eyes briefly and closing them. Only able to say hello and not following commands. Pt back to bed from recliner, noted to be hot to touch. Temp taken and noted to be 104.4 rectally, sats down in the 80's (oxygen titrated up to 5L NC - sats 90/92) and HR in the 1-teens. Dr. Queen called and notified of these findings. BC, CBC, LA ordered. ME tylenol ordered and administered and ice packs applied. Will continue to monitor.
[2020-03-08 07:32] LABS: Anion Gap 19 (12-20); Blood Urea Nitrogen 28 mg/dL (9-16); Calcium 8.4 mg/dL (8.4-10.2); Carbon Dioxide 17 mmol/L (22-29); Chloride 94 mmol/L (96-108); Creatinine Clr Calc Pharmacy 49.6; Estimated Glomerular Filt Rate > 60; Glucose Fasting 164 mg/dL (60-99); Potassium 4.1 mmol/l (3.3-5.1); Sodium 126 mmol/L (135-145)
[2020-03-08] MEDS: Fluticasone Propionate 100 MCG BLST.W.DEV 2 PUFF INHALE ×2 (08:10→20:34)
[2020-03-08] MEDS: Azithromycin 500 MG in 0.9 % Sodium Chloride 250 ML 125 MG IV (08:19)
[2020-03-08] MEDS: 0.9 % Sodium Chloride Flush 3 ML SYRINGE IVFLUSH ×3 (08:19→20:28)
[2020-03-08 08:33] LABS: Glucose, Whole Blood 215 mg/dL (60-115)
[2020-03-08] MEDS: Insulin Lispro 100 UNIT/ML 3 ML VIAL SUBCUT ×4 (08:37→20:27)
[2020-03-08] MEDS: dexAMETHasone sod phosphate 4 MG/ML VIAL 6 MG IVPUSH (08:53)
--- NOTE | 2020-03-08 10:52 | HO.PM.IMPN ---
Subjective Subjective Date of Service: 03/08/20 Interval History: lethargy Cardiovascular Cardiovascular: Reports no additional cardiovascular complaints Gastrointestinal Gastrointestinal: Reports no additional gastrointestinal complaints Physical Exam Vital Signs: Vital Signs: Last Vital Signs Temp 104.4 F H 03/08/20 06:28 Pulse 121 H 03/08/20 10:18 Resp 18 03/08/20 07:47 BP 108/65 03/08/20 10:18 Pulse Ox 92 03/08/20 07:47 Body Mass Index 22.8 General: lethargic, ill appearing, diaphoretic Resp: diminished CVS: S1,S2,RRR GI: soft, non tender, non distended Neuro: motor grossly intact Psych: appropriate affect Objective Data Current Medications Generic Name Dose Route Start Last Admin Trade Name Freq PRN Reason Stop Dose Admin Acetaminophen 650 mg 03/05/20 16:50 03/07/20 18:34 Acetaminophen 325 Mg Tablet PO 650 mg RQ6H PRN Administration HEADACHES , Aspirin 81 mg 03/06/20 09:00 03/08/20 10:16 Aspirin Enteric Coated 81 Mg Tablet. PO Not Given DAILY [facility] Calcium Carbonate/Cholecalciferol 250 mg 03/05/20 21:00 03/08/20 10:16 Calcium + Vitamin D 250 Mg Tablet PO Not Given BID [facility] Dexamethasone Sodium Phosphate 6 mg 03/07/20 09:00 03/08/20 08:53 Dexamethasone Sod Phosphate 4 Mg/Ml Vial IVPUSH 6 mg DAILY [facility] Administration Docusate Sodium 100 mg 03/05/20 17:25 Docusate Sodium 100 Mg Capsule PO BID PRN Constipation Enoxaparin Sodium 40 mg 03/05/20 16:50 03/07/20 18:30 Enoxaparin Sodium 40 Mg/0.4 Ml Syringe SUBCUT 40 mg Q24H [facility] Administration Ferrous Sulfate 324 mg 03/05/20 21:00 03/08/20 10:16 Ferrous Sulfate 324 Mg Tablet. PO Not Given BID [facility] Fluticasone Propionate 2 spray 03/05/20 17:25 Fluticasone Propionate Nasal 16 Gm [place] NOSTRIL-B DAILY PRN Nasal Congestion Fluticasone Propionate 2 puff 03/05/20 20:00 03/08/20 08:10 Fluticasone Propionate 100 Mcg Blst.W.Dev INHALE 2 puff RBID [facility] Administration Azithromycin 500 mg/ Sodium 250 mls @ 125 mls/hr 12/27/20 08:00 03/08/20 08:19 Chloride IV 125 mls/hr Q24H [facility] Administration Ceftriaxone Sodium 1 gm/ 50 mls @ 100 mls/hr 03/08/20 07:00 03/08/20 07:23 Sodium Chloride IV Infused Q24H [facility] Infusion Insulin Human Lispro 0 unit 03/05/20 21:00 03/08/20 08:37 Insulin Lispro 100 Unit/Ml 3 Ml Vial SUBCUT 4 unit QIDACHS [facility] Administration Protocol Melatonin 6 mg 03/06/20 21:00 Melatonin 3 Mg Tablet PO BEDTIME PRN Insomnia Metoprolol Tartrate 25 mg 03/05/20 21:00 03/08/20 10:18 Metoprolol Tartrate 25 Mg Tablet PO Not Given BID [facility] Protocol Montelukast Sodium 10 mg 03/06/20 09:00 03/08/20 10:16 Montelukast Sodium 10 Mg Tablet PO Not Given DAILY [facility] Omeprazole 20 mg 03/06/20 06:30 03/08/20 05:36 Omeprazole 20 Mg Capsule. PO 20 mg DAILY@0630 [facility] Administration Pharmacy Consult 1 each 03/05/20 16:16 Consult Rx Perform Med Rec MISCELLANE ONCE PRN Consult order Pravastatin Sodium 10 mg 03/06/20 09:00 03/08/20 10:17 Pravastatin Sodium 10 Mg Tablet PO Not Given DAILY [facility] Sodium Chloride 3 ml 03/06/20 00:00 03/08/20 08:19 0.9 % Sodium Chloride Flush 3 Ml Syringe IVFLUSH 3 ml QSHIFT [facility] Administration Labs CBC & Chem 7: 03/08/20 06:39 03/08/20 06:39 Microbiology Microbiology Results: Microbiology 03/06/20 19:07 Blood - Venous Blood Culture - Preliminary No growth after 24 hours. 03/06/20 19:07 Blood - Venous Blood Culture - Preliminary No growth after 24 hours. 03/05/20 13:44 Blood - Venous Blood Culture - Preliminary No growth after 48 hours. 03/05/20 13:29 Blood - Venous Blood Culture - Preliminary No growth after 48 hours. Assessment and Plan (1) COVID-19: Problem details: He has acute symptoms with headaches predominant within 4 days He has no evidence of hypoxia He is on room air He has no lobar infiltrate,leukocytosis or productive sputum so no bacterial pneumonia likely Status: Acute Assessment and Plan: 85-year-old male presented with lethargy found to have COVID pneumonia Acute hypoxic respiratory failure secondary to COVID pneumonia conitnue decadron day 2 now febrile continue ceftriaxone, azithro Acute kidney injury Resolved Diabetes Insulin Asthma Continue Flovent and singular
[2020-03-08 11:28] LABS: Glucose, Whole Blood 215 mg/dL (60-115)
[2020-03-08] MEDS: Enoxaparin Sodium 40 MG/0.4 ML SYRINGE SUBCUT (16:25)
[2020-03-08] MEDS: Acetaminophen 325 MG TABLET 650 MG PO (16:28)
[2020-03-08 16:30] LABS: Glucose, Whole Blood 248 mg/dL (60-115)
[2020-03-08 20:26] LABS: Glucose, Whole Blood 241 mg/dL (60-115)
[2020-03-08] MEDS: Calcium + Vitamin D 250 MG TABLET PO (20:27)
[2020-03-08] MEDS: Ferrous Sulfate 324 MG TABLET.DR PO (20:27)
[2020-03-08] MEDS: Metoprolol Tartrate 25 MG TABLET PO (20:27)
[2020-03-09] VITALS (17 sets, daily range): BP systolic 111–146; BP diastolic 70–93; PULSE 75–122; RESP 16–28; TEMP 36.6–39.4; O2SAT 93–96
--- NOTE | 2020-03-09 | XR_ITS ---
EXAMINATION: CHEST 1 VIEW CLINICAL INFORMATION: Shortness of breath. COMPARISON: 03/05/2020. TECHNIQUE: An AP view of the chest is provided. FINDINGS: The cardiac silhouette is not enlarged. The mediastinal and hilar contours are unremarkable. There are neither pleural effusions nor pneumothoraces. There is stable mild interstitial prominence throughout both lungs. Coarsened opacification within the left midlung and right lower lung zone is stable. The osseous structures are stable. XR/XR chest 1V IMPRESSION: Stable chest radiograph.
[2020-03-09] MEDS: Acetaminophen 325 MG TABLET 650 MG PO ×3 (00:17→18:15)
--- NOTE | 2020-03-09 00:39 | PC.NURSE ---
At approximately 0000 patient was noted to desat on the monitor with O2 levels down to low 80's. Upon assessment patient appeared to be tachypneic with increased WOB and tachycardic in the 130's. Oxygen level on NC was increased to 6L with no improvement and per respiratory's advisement, patient was placed on nonrebreather 15L. Rectal temp was noted to be 100.3. 650mg of po Tylenol given. Hospitalist informed and orders to obtain a portable chest xray, lab work and an ABG placed. Labwork and xray completed. Patient appears more comfortable with RR 20, HR 98 and O2 94% on nonrebreather.
[2020-03-09 01:00] LABS: Anion Gap 20 (12-20); Blood Urea Nitrogen 36 mg/dL (9-16); Calcium 8.3 mg/dL (8.4-10.2); Carbon Dioxide 18 mmol/L (22-29); Chloride 95 mmol/L (96-108); Creatinine Clr Calc Pharmacy 44.3; Estimated Glomerular Filt Rate > 60; Glucose Random 189 mg/dL (60-115); Potassium 3.9 mmol/l (3.3-5.1); Sodium 129 mmol/L (135-145)
[2020-03-09 01:23] LABS: ABG PCO2 25 mmhg (32-45); Base Excess ABG -3.6; HCO3 ABG 18 mmol/l (22-26); Oxygen Saturation ABG 95.2 %; PO2 ABG 77 mmhg (83-108); pH ABG 7.48 (7.35-7.45)
[2020-03-09] MEDS: cefTRIAXone sodium 1 GM in 0.9 % Sodium Chloride 50 ML IV (06:36)
[2020-03-09 07:06] LABS: Hematocrit 39.5 % (42-52); Imm Gran Abs Auto 0.06 X10*3/uL (0.00-0.03); Imm Gran Pct Auto 0.6 % (0.0-0.4); Lymphocytes Absolute Auto 0.4 X10*3/uL (1.2-4.9); Lymphocytes Percent Auto 4.1 % (20-40); MANUAL DIFF FLAG SCAN; Mean Corpuscular HGB Conc 35.4 g/dl (31.0-36.0); Mean Corpuscular Hemoglobin 32.1 pg (27.0-33.0); Mean Corpuscular Volume 90.6 fL (80-98); Mean Platelet Volume 10.7 fL (9.4-12.4); Monocytes Absolute Auto 0.6 X10*3/uL (0.1-1.2); Monocytes Percent Auto 6.3 % (2-11); Neutrophils Absolute Auto 9.1 X10*3/uL (2.0-8.3); Platelet Count 212 X10*3/uL (160-400); Red Blood Count 4.36 X10*6/uL (4.60-5.80); Red Cell Distribution Width 12.2 % (11.0-16.0); SCAN SMEAR FLAG 1; White Blood Count 10.2 X10*3/uL (4.8-10.8)
[2020-03-09 07:16] LABS: D Dimer 802 NG/ML
[2020-03-09 07:23] LABS: C Reactive Protein 14.15 mg/dL (< or = 0.50); Lactate Dehydrogenase 420 U/L (118-273)
[2020-03-09 07:24] LABS: Anion Gap 21 (12-20); Blood Urea Nitrogen 34 mg/dL (9-16); Calcium 8.3 mg/dL (8.4-10.2); Carbon Dioxide 16 mmol/L (22-29); Chloride 96 mmol/L (96-108); Creatinine Clr Calc Pharmacy 50.6; Estimated Glomerular Filt Rate > 60; Glucose Fasting 196 mg/dL (60-99); Potassium 4.2 mmol/l (3.3-5.1); Sodium 129 mmol/L (135-145)
[2020-03-09 07:50] LABS: SLIDE REVIEW VERIFIED
[2020-03-09 08:09] LABS: Glucose, Whole Blood 201 mg/dL (60-115)
[2020-03-09] MEDS: Fluticasone Propionate 100 MCG BLST.W.DEV 2 PUFF INHALE ×2 (08:18→20:18)
[2020-03-09] MEDS: dexAMETHasone sod phosphate 4 MG/ML VIAL 6 MG IVPUSH (08:21)
[2020-03-09] MEDS: Azithromycin 500 MG in 0.9 % Sodium Chloride 250 ML 125 MG IV (08:21)
[2020-03-09] MEDS: Montelukast Sodium 10 MG TABLET PO (08:22)
[2020-03-09] MEDS: Insulin Lispro 100 UNIT/ML 3 ML VIAL SUBCUT ×4 (08:22→20:32)
[2020-03-09] MEDS: Metoprolol Tartrate 25 MG TABLET PO ×2 (08:22→20:32)
[2020-03-09] MEDS: Aspirin Enteric Coated 81 MG TABLET.DR PO (08:22)
[2020-03-09] MEDS: 0.9 % Sodium Chloride Flush 3 ML SYRINGE IVFLUSH ×3 (08:22→23:41)
[2020-03-09] MEDS: Pravastatin Sodium 10 MG TABLET PO (08:23)
[2020-03-09] MEDS: Ferrous Sulfate 324 MG TABLET.DR PO ×2 (08:23→20:33)
[2020-03-09] MEDS: Calcium + Vitamin D 250 MG TABLET PO ×2 (08:23→20:32)
--- NOTE | 2020-03-09 09:46 | PM.CNPUL ---
History of Present Illness History of Present Illness Consult date: 03/09/20 Reason for consult: hypoxemia Chief complaint: COVID pneumonia Narrative: The patient is an 85-year-old gentleman presenting with worsening constitutional symptoms. For 5 days prior to his admission to the hospital he started developing upper respiratory viral symptoms. Positive COVID exposure in the home. He did come into the hospital and was tested on 03/05 which was positive for COVID at the time. The patient did have an x-ray demonstrating bilateral opacities left more than right. He was placed on oxygen admitted to the hospital. He was placed on steroids. He did not starting this severe. He did start IV antibiotics for potential postviral bacterial infections. He continued having fevers. During the hospital course his respiratory status has worsened initially on a non-rebreather and now on high-flow. The patient appears to be frail complaining of cough and also dry mouth. He is asking for lot of water. Appears to have a low sodium at this time. He did have a repeat chest x-ray demonstrating interval worsening of the left-sided opacities now involving the upper and the lower lung zones. Appears to be is symmetric. His D-dimer was elevated so therefore he had a perfusion study which was normal. Based on his worsening symptoms Pulmonary was consulted. Review of Systems Constitutional: Constitutional: Reports fatigue and Reports headache(s) ENT: Reports headache(s), Denies lip swelling and Denies tongue swelling Cardiovascular: Cardiovascular: Denies chest pain Respiratory: Respiratory: Reports cough Gastrointestinal: Gastrointestinal: Denies abdominal pain Musculoskeletal: Musculoskeletal: Denies no additional musculoskeletal complaints Neurologic: Reports system reviewed and no additional complaints, except as documented, Reports as per HPI and Reports headache(s) Psychiatric: Psychiatric: Denies no additional psychiatric complaints Endocrine: Endocrine: Reports fatigue and Reports polydipsia Hematologic/Lymphatic: Hematologic/Lymphatic: Denies easy bleeding and Denies lymphadenopathy Allergic/Immunologic: Allergic/Immunologic: Denies lip swelling and Denies tongue swelling [facility] Past Medical History Medical History (Updated 03/09/20 @ 09:51 by Sunil Rao MD) Asthma Diabetes HTN (hypertension) Hyperlipidemia Migraine Osteoarthritis Family History Family history: reviewed and not pertinent Social History Social History Household Members: None Housing: Apartment Do you presently have visiting nurse or other home services: Yes (pt states he has a [employer]) Alcohol intake: never Smoking Status: Never smoker Smoked in Last 30 Days: No Use of substances other than those prescribed or required for medical reasons: No Currently Displaying Signs/Symptoms of Drug Intoxication Withdrawal: No Have you been hit, kicked, punched, or otherwise hurt by someone within the past year? If so, by whom?: No Do you feel safe in your current relationship?: No Current Relationship Is there a partner from a previous relationship who is making you feel unsafe now?: No Are you made to feel afraid or neglected: No [facility] Practices: Islam Advance Directives: No Advance Directives Information Provided: No Do you have thoughts of harming others: None Do you have a plan to hurt others: No Plan Recently lost weight without trying: No service: No Current occupational status: retired [employer] Allergies Allergy/AdvReac Type Severity Reaction Status Date / Time Penicillins [PENICILLINS] Allergy Unknown RASH Verified 03/05/20 13:11 Home Medications Medication Instructions Recorded Confirmed Type amlodipine 1 tab PO DAILY 03/05/20 03/05/20 History aspirin 1 tab PO DAILY 03/05/20 03/05/20 History calcium carbonate-vitamin D3 1 tab PO BID 03/05/20 03/05/20 History docusate sodium [Stool Softener] 100 mg PO BID PRN 03/05/20 03/05/20 History ferrous sulfate 1 tab PO BID 03/05/20 03/05/20 History fluticasone propionate 2 spray INTRANASAL DAILY PRN 03/05/20 03/05/20 History fluticasone propionate [Flovent 2 puff INHALATION BID 03/05/20 03/05/20 History HFA] hydrochlorothiazide 1 tab PO QAM 03/05/20 03/05/20 History melatonin 1 tab PO BEDTIME PRN 03/05/20 03/05/20 History metformin 1 tab PO BID 03/05/20 03/05/20 History metoprolol tartrate 1 tab PO BID 03/05/20 03/05/20 History montelukast 1 tab PO DAILY 03/05/20 03/05/20 History omeprazole 1 cap PO DAILY 03/05/20 03/05/20 History pravastatin 1 tab PO DAILY 03/05/20 03/05/20 History Physical Exam Vital Signs: Vital Signs: Last Vital Signs Temp 100.2 F 03/09/20 08:00 Pulse 112 H 03/09/20 08:22 Resp 20 03/09/20 08:21 BP 129/78 03/09/20 08:22 Pulse Ox 95 03/09/20 08:00 Body Mass Index 23.5 Const: General: diaphoretic, ill appearing and lethargic Orientation/consciousness: lethargic HENMT: General nose exam: Abnormal external nose present and Nasal discharge present Eyes: Pupils: Equal, round and reactive pupils present Neck: Neck: Yes normal visual inspection, Yes full ROM and Yes no lymphadenopathy Chest: Chest palpation & inspection: normal inspection of the chest Resp: Auscultation: diminished lung sounds Cardio: Rate: regular rate Rhythm: regular rhythm Heart sounds: S1 normal heart sound present and S2 normal heart sound present GI: Palpation (GI): Soft to palpation and nontender Auscultation: normal bowel sounds : General: Yes no CVA tenderness Back/Spine/Pelvis: Back: no CVA tenderness Skin: General skin exam: rashes and/or lesions noted Neuro: Cranial nerves: Yes Equal, round and reactive pupils present Results Laboratory Findings CBC and BMP: 03/09/20 06:22 03/09/20 06:22 ABG, PT/INR, D-dimer: ABG ABG pH 7.48 (7.35-7.45) H 03/09/20 01:10 ABG pCO2 25 mmhg (32-45) L 03/09/20 01:10 ABG pO2 77 mmhg (83-108) L 03/09/20 01:10 ABG O2 Saturation 95.2 % 03/09/20 01:10 PT/INR, D-dimer PT 13.2 SEC (10.8-13.0) H 03/05/20 13:29 INR 1.1 (0.9-1.1) 03/05/20 13:29 D-Dimer 802 NG/ML 03/09/20 06:22 Abnormal lab findings: Abnormal Labs 03/05/20 03/05/20 03/05/20 13:29 13:29 13:29 WBC 3.9 L RBC 4.21 L Hgb 13.6 L Hct 39.1 L Plt Count 152 L Immature Gran % (Auto) Neut % (Auto) Lymph % (Auto) [place] % (Auto) 16.9 H Lymph # (Auto) 0.8 L Abs Immat Gran (auto) Absolute Neuts (auto) PT 13.2 H ABG pH ABG pCO2 ABG pO2 ABG HCO3 Sodium 127 L Chloride 93 L Carbon Dioxide 18 L Anion Gap BUN 35 H Creatinine 1.41 H POC Glucose Random Glucose 347 H Fasting Glucose Calcium 8.3 L Ferritin 468 H Lactate Dehydrogenase C-Reactive Protein Urine Protein Urine Glucose (UA) Urine Blood Coronavirus (PCR) 03/05/20 03/05/20 03/05/20 13:29 18:50 20:20 WBC RBC Hgb Hct Plt Count Immature Gran % (Auto) Neut % (Auto) Lymph % (Auto) [place] % (Auto) Lymph # (Auto) Abs Immat Gran (auto) Absolute Neuts (auto) PT ABG pH ABG pCO2 ABG pO2 ABG HCO3 Sodium Chloride Carbon Dioxide Anion Gap BUN Creatinine POC Glucose 291 H Random Glucose Fasting Glucose Calcium Ferritin Lactate Dehydrogenase C-Reactive Protein Urine Protein 1+ H Urine Glucose (UA) 500 H Urine Blood 1+ H Coronavirus (PCR) POSITIVE A 03/06/20 03/06/20 03/06/20 05:51 05:51 07:33 WBC 3.9 L RBC 4.02 L Hgb 13.0 L Hct 36.9 L Plt Count 152 L Immature Gran % (Auto) Neut % (Auto) Lymph % (Auto) [place] % (Auto) Lymph # (Auto) Abs Immat Gran (auto) Absolute Neuts (auto) PT ABG pH ABG pCO2 ABG pO2 ABG HCO3 Sodium 129 L Chloride Carbon Dioxide 17 L Anion Gap BUN 27 H Creatinine POC Glucose 209 H Random Glucose 254 H Fasting Glucose Calcium 8.0 L Ferritin Lactate Dehydrogenase C-Reactive Protein Urine Protein Urine Glucose (UA) Urine Blood Coronavirus (PCR) 03/06/20 03/06/20 03/06/20 11:17 15:57 19:36 WBC RBC Hgb Hct Plt Count Immature Gran % (Auto) Neut % (Auto) Lymph % (Auto) [place] % (Auto) Lymph # (Auto) Abs Immat Gran (auto) Absolute Neuts (auto) PT ABG pH ABG pCO2 ABG pO2 ABG HCO3 Sodium Chloride Carbon Dioxide Anion Gap BUN Creatinine POC Glucose 226 H 259 H 223 H Random Glucose Fasting Glucose Calcium Ferritin Lactate Dehydrogenase C-Reactive Protein Urine Protein Urine Glucose (UA) Urine Blood Coronavirus (PCR) 03/07/20 03/07/20 03/07/20 06:09 06:09 07:15 WBC 3.8 L RBC 4.03 L Hgb 13.0 L Hct 37.7 L Plt Count 113 L D Immature Gran % (Auto) Neut % (Auto) Lymph % (Auto) [place] % (Auto) Lymph # (Auto) Abs Immat Gran (auto) Absolute Neuts (auto) PT ABG pH ABG pCO2 ABG pO2 ABG HCO3 Sodium 128 L Chloride Carbon Dioxide 16 L Anion Gap BUN 33 H Creatinine POC Glucose 212 H Random Glucose 212 H Fasting Glucose Calcium 8.0 L Ferritin Lactate Dehydrogenase C-Reactive Protein Urine Protein Urine Glucose (UA) Urine Blood Coronavirus (PCR) 03/07/20 03/07/20 03/07/20 11:27 16:31 21:06 WBC RBC Hgb Hct Plt Count Immature Gran % (Auto) Neut % (Auto) Lymph % (Auto) [place] % (Auto) Lymph # (Auto) Abs Immat Gran (auto) Absolute Neuts (auto) PT ABG pH ABG pCO2 ABG pO2 ABG HCO3 Sodium Chloride Carbon Dioxide Anion Gap BUN Creatinine POC Glucose 239 H 227 H 214 H Random Glucose Fasting Glucose Calcium Ferritin Lactate Dehydrogenase C-Reactive Protein Urine Protein Urine Glucose (UA) Urine Blood Coronavirus (PCR) 03/08/20 03/08/20 03/08/20 06:39 06:39 08:24 WBC RBC 4.49 L Hgb Hct 41.3 L Plt Count Immature Gran % (Auto) Neut % (Auto) 80.2 H Lymph % (Auto) 10.2 L [place] % (Auto) Lymph # (Auto) 0.8 L Abs Immat Gran (auto) Absolute Neuts (auto) PT ABG pH ABG pCO2 ABG pO2 ABG HCO3 Sodium 126 L Chloride 94 L Carbon Dioxide 17 L Anion Gap BUN 28 H Creatinine POC Glucose 215 H Random Glucose Fasting Glucose 164 H Calcium Ferritin Lactate Dehydrogenase C-Reactive Protein Urine Protein Urine Glucose (UA) Urine Blood Coronavirus (PCR) 03/08/20 03/08/20 03/08/20 11:23 16:23 20:23 WBC RBC Hgb Hct Plt Count Immature Gran % (Auto) Neut % (Auto) Lymph % (Auto) [place] % (Auto) Lymph # (Auto) Abs Immat Gran (auto) Absolute Neuts (auto) PT ABG pH ABG pCO2 ABG pO2 ABG HCO3 Sodium Chloride Carbon Dioxide Anion Gap BUN Creatinine POC Glucose 215 H 248 H 241 H Random Glucose Fasting Glucose Calcium Ferritin Lactate Dehydrogenase C-Reactive Protein Urine Protein Urine Glucose (UA) Urine Blood Coronavirus (PCR) 03/09/20 03/09/20 03/09/20 00:31 01:10 06:22 WBC RBC Hgb Hct Plt Count Immature Gran % (Auto) Neut % (Auto) Lymph % (Auto) [place] % (Auto) Lymph # (Auto) Abs Immat Gran (auto) Absolute Neuts (auto) PT ABG pH 7.48 H ABG pCO2 25 L ABG pO2 77 L ABG HCO3 18 L Sodium 129 L Chloride 95 L Carbon Dioxide 18 L Anion Gap BUN 36 H Creatinine POC Glucose Random Glucose 189 H Fasting Glucose Calcium 8.3 L Ferritin Lactate Dehydrogenase 420 H C-Reactive Protein 14.15 H Urine Protein Urine Glucose (UA) Urine Blood Coronavirus (PCR) 03/09/20 03/09/20 03/09/20 06:22 06:22 07:59 WBC RBC 4.36 L Hgb Hct 39.5 L Plt Count Immature Gran % (Auto) 0.6 H Neut % (Auto) 89.0 H Lymph % (Auto) 4.1 L [place] % (Auto) Lymph # (Auto) 0.4 L Abs Immat Gran (auto) 0.06 H Absolute Neuts (auto) 9.1 H PT ABG pH ABG pCO2 ABG pO2 ABG HCO3 Sodium 129 L Chloride Carbon Dioxide 16 L Anion Gap 21 H BUN 34 H Creatinine POC Glucose 201 H Random Glucose Fasting Glucose 196 H Calcium 8.3 L Ferritin Lactate Dehydrogenase C-Reactive Protein Urine Protein Urine Glucose (UA) Urine Blood Coronavirus (PCR) Microbiology: Microbiology 03/08/20 06:39 Blood - Venous Blood Culture - Preliminary No growth after 24 hours. 03/08/20 06:39 Blood - Venous Blood Culture - Preliminary No growth after 24 hours. 03/06/20 19:07 Blood - Venous Blood Culture - Preliminary No growth after 48 hours. 03/06/20 19:07 Blood - Venous Blood Culture - Preliminary No growth after 48 hours. 03/05/20 13:44 Blood - Venous Blood Culture - Preliminary No growth after 48 hours. 03/05/20 13:29 Blood - Venous Blood Culture - Preliminary No growth after 48 hours. Assessment and Plan (1) COVID-19: Problem details: He has acute symptoms with headaches predominant within 4 days He has no evidence of hypoxia He is on room air He has no lobar infiltrate,leukocytosis or productive sputum so no bacterial pneumonia likely Status: Acute more then 1 week from onset of symptoms. No benefit from plasma nor Remdisivir Increase Steroids to solumedrol Increase Lovenox to 0.5mg/kb BID (2) Acute respiratory failure: Qualifiers: Respiratory failure complication: hypoxia Qualified Code(s): J96.01 - Acute respiratory failure with hypoxia Status: Acute Contiunue High flow Awake proning (3) Pneumonia: Qualifiers: Pneumonia type: due to unspecified organism Laterality: bilateral Lung location: unspecified part of lung Qualified Code(s): J18.9 - Pneumonia, unspecified organism Status: Acute Continue CTX d/c Zythromax Add Doxy
[2020-03-09] MEDS: Doxycycline Hyclate 100 MG in 0.9 % Sodium Chloride 250 ML 125 MG IV (11:14)
[2020-03-09] MEDS: methylPREDNISolone Sod Succ/PF 125 MG/2 ML VIAL 60 MG IVPUSH ×3 (11:15→20:31)
[2020-03-09] MEDS: Enoxaparin Sodium 40 MG/0.4 ML SYRINGE SUBCUT ×2 (11:15→20:31)
[2020-03-09 12:11] LABS: Glucose, Whole Blood 252 mg/dL (60-115)
[2020-03-09 12:25] LABS: B Type Natriuretic Peptide 28 pg/mL (<100)
--- NOTE | 2020-03-09 12:45 | PM.PNNEP ---
Subjective Subjective Date of Service: 03/09/20 Interval history: Patient seen and examined consult dictated Physical Exam Vital Signs: Vital Signs: Last Vital Signs Temp 98.0 F 03/09/20 12:00 Pulse 86 03/09/20 12:00 Resp 22 H 03/09/20 12:00 BP 117/71 03/09/20 12:00 Pulse Ox 96 03/09/20 12:00 Body Mass Index 23.5 Objective Data Labs CBC & Chem 7: 03/09/20 06:22 03/09/20 06:22 Labs: Laboratory Results - last 24 hr 03/08/20 03/08/20 03/09/20 16:23 20:23 00:31 WBC RBC Hgb Hct MCV MCH MCHC RDW Plt Count MPV Immature Gran % (Auto) Neut % (Auto) Lymph % (Auto) [place] % (Auto) Eos % (Auto) Baso % (Auto) Lymph # (Auto) [place] # (Auto) Eos # (Auto) Baso # (Auto) Abs Immat Gran (auto) Absolute Neuts (auto) Absolute Nucleated RBC Nucleated RBC % (auto) Smear Tech's Comments D-Dimer ABG pH ABG pCO2 ABG pO2 ABG HCO3 ABG O2 Saturation ABG Base Excess Oxygen Given Sodium 129 L Potassium 3.9 Chloride 95 L Carbon Dioxide 18 L Anion Gap 20 BUN 36 H Creatinine 1.12 Estim Creat Clear Calc 44.3 Estimated GFR > 60 POC Glucose 248 H 241 H Random Glucose 189 H Fasting Glucose Calcium 8.3 L Lactate Dehydrogenase C-Reactive Protein B-Natriuretic Peptide NT-Pro-B Natriuret Pep 03/09/20 03/09/20 03/09/20 00:31 01:10 06:22 WBC RBC Hgb Hct MCV MCH MCHC RDW Plt Count MPV Immature Gran % (Auto) Neut % (Auto) Lymph % (Auto) [place] % (Auto) Eos % (Auto) Baso % (Auto) Lymph # (Auto) [place] # (Auto) Eos # (Auto) Baso # (Auto) Abs Immat Gran (auto) Absolute Neuts (auto) Absolute Nucleated RBC Nucleated RBC % (auto) Smear Tech's Comments D-Dimer 802 ABG pH 7.48 H ABG pCO2 25 L ABG pO2 77 L ABG HCO3 18 L ABG O2 Saturation 95.2 ABG Base Excess -3.6 Oxygen Given 9-15 L Sodium Potassium Chloride Carbon Dioxide Anion Gap BUN Creatinine Estim Creat Clear Calc Estimated GFR POC Glucose Random Glucose Fasting Glucose Calcium Lactate Dehydrogenase C-Reactive Protein B-Natriuretic Peptide NT-Pro-B Natriuret Pep Cancelled 03/09/20 03/09/20 03/09/20 06:22 06:22 06:22 WBC 10.2 RBC 4.36 L Hgb 14.0 Hct 39.5 L MCV 90.6 MCH 32.1 MCHC 35.4 RDW 12.2 Plt Count 212 MPV 10.7 Immature Gran % (Auto) 0.6 H Neut % (Auto) 89.0 H Lymph % (Auto) 4.1 L [place] % (Auto) 6.3 Eos % (Auto) 0.0 Baso % (Auto) 0.0 Lymph # (Auto) 0.4 L [place] # (Auto) 0.6 Eos # (Auto) 0.0 Baso # (Auto) 0.0 Abs Immat Gran (auto) 0.06 H Absolute Neuts (auto) 9.1 H Absolute Nucleated RBC 0.000 Nucleated RBC % (auto) 0.0 Smear Tech's Comments VERIFIED D-Dimer ABG pH ABG pCO2 ABG pO2 ABG HCO3 ABG O2 Saturation ABG Base Excess Oxygen Given Sodium 129 L Potassium 4.2 Chloride 96 Carbon Dioxide 16 L Anion Gap 21 H BUN 34 H Creatinine 0.98 Estim Creat Clear Calc 50.6 Estimated GFR > 60 POC Glucose Random Glucose Fasting Glucose 196 H Calcium 8.3 L Lactate Dehydrogenase 420 H C-Reactive Protein 14.15 H B-Natriuretic Peptide NT-Pro-B Natriuret Pep 03/09/20 03/09/20 03/09/20 07:59 11:01 11:49 WBC RBC Hgb Hct MCV MCH MCHC RDW Plt Count MPV Immature Gran % (Auto) Neut % (Auto) Lymph % (Auto) [place] % (Auto) Eos % (Auto) Baso % (Auto) Lymph # (Auto) [place] # (Auto) Eos # (Auto) Baso # (Auto) Abs Immat Gran (auto) Absolute Neuts (auto) Absolute Nucleated RBC Nucleated RBC % (auto) Smear Tech's Comments D-Dimer ABG pH ABG pCO2 ABG pO2 ABG HCO3 ABG O2 Saturation ABG Base Excess Oxygen Given Sodium Potassium Chloride Carbon Dioxide Anion Gap BUN Creatinine Estim Creat Clear Calc Estimated GFR POC Glucose 201 H 252 H Random Glucose Fasting Glucose Calcium Lactate Dehydrogenase C-Reactive Protein B-Natriuretic Peptide 28 NT-Pro-B Natriuret Pep Microbiology Microbiology Results: Microbiology 03/08/20 06:39 Blood - Venous Blood Culture - Preliminary No growth after 24 hours. 03/08/20 06:39 Blood - Venous Blood Culture - Preliminary No growth after 24 hours. 03/06/20 19:07 Blood - Venous Blood Culture - Preliminary No growth after 48 hours. 03/06/20 19:07 Blood - Venous Blood Culture - Preliminary No growth after 48 hours. 03/05/20 13:44 Blood - Venous Blood Culture - Preliminary No growth after 48 hours. 03/05/20 13:29 Blood - Venous Blood Culture - Preliminary No growth after 48 hours. Assessment & Plan Assessment and plan (1) Hyponatremia: Status: Acute (2) COVID-19: Problem details: He has acute symptoms with headaches predominant within 4 days He has no evidence of hypoxia He is on room air He has no lobar infiltrate,leukocytosis or productive sputum so no bacterial pneumonia likely Status: Acute (3) Metabolic acidosis: Status: Acute Assessment and Plan: hyponatremia in the setting of SARS COV 2 and recent use of HCTZ non osmotic increase ADH REC fluid restriction urine osmolality 'urine sodium no need for urea powder follow kidney function and electrolytes Thank you Time Spent With Patient Time: Total time spent is greater than 50% in coordination of care (as documented) at patient's floor/unit and/or counseling patient:
--- NOTE | 2020-03-09 13:19 | HO.PM.IMPN ---
Subjective Subjective Date of Service: 03/09/20 Interval History: Being followed for COVID-19 infection, patient complaining of headache, cough and dry mouth, noted to have worsening hypoxia with increased requirement of oxygen. Review of Systems General headache, no dizziness, no fever chills. CVS no chest pain, no palpitation. Respiratory cough/shortness of breath. Gastrointestinal no nausea, no vomiting, no abdominal pain Physical Exam Vital Signs: Vital Signs: Last Vital Signs Temp 98.0 F 03/09/20 12:00 Pulse 86 03/09/20 12:00 Resp 22 H 03/09/20 12:00 BP 117/71 03/09/20 12:00 Pulse Ox 96 03/09/20 12:00 Body Mass Index 23.5 General mild respiratory distress, ill-appearing. Neck is supple no JVD. CVS regular rate rhythm, Respiratory diminished breath sounds Gastrointestinal abdomen soft, nontender, bowel sounds audible Extremities no clubbing cyanosis or edema. Neuro nonfocal ,speech clear. Skin no rash Objective Data Current Medications Generic Name Dose Route Start Last Admin Trade Name Freq PRN Reason Stop Dose Admin Acetaminophen 650 mg 03/05/20 16:50 03/09/20 11:15 Acetaminophen 325 Mg Tablet PO 650 mg RQ6H PRN Administration HEADACHES , Aspirin 81 mg 03/06/20 09:00 03/09/20 08:22 Aspirin Enteric Coated 81 Mg Tablet. PO 81 mg DAILY ACE Administration Calcium Carbonate/Cholecalciferol 250 mg 03/05/20 21:00 03/09/20 08:23 Calcium + Vitamin D 250 Mg Tablet PO 250 mg BID ACE Administration Docusate Sodium 100 mg 03/05/20 17:25 Docusate Sodium 100 Mg Capsule PO BID PRN Constipation Enoxaparin Sodium 40 mg 03/09/20 10:15 03/09/20 11:15 Enoxaparin Sodium 40 Mg/0.4 Ml Syringe SUBCUT 40 mg Q12H ACE Administration Ferrous Sulfate 324 mg 03/05/20 21:00 03/09/20 08:23 Ferrous Sulfate 324 Mg Tablet. PO 324 mg BID ACE Administration Fluticasone Propionate 2 spray 03/05/20 17:25 Fluticasone Propionate Nasal 16 Gm [place] NOSTRIL-B DAILY PRN Nasal Congestion Fluticasone Propionate 2 puff 03/05/20 20:00 03/09/20 08:18 Fluticasone Propionate 100 Mcg Blst.W.Dev INHALE 2 puff RBID ACE Administration Ceftriaxone Sodium 1 gm/ 50 mls @ 100 mls/hr 03/08/20 07:00 03/09/20 08:03 Sodium Chloride IV Infused Q24H ACE Infusion Doxycycline Hyclate 100 mg/ 250 mls @ 166.67 mls/hr 03/09/20 10:00 03/09/20 11:14 Sodium Chloride IV 125 mls/hr Q12H ACE Administration Insulin Human Lispro 0 unit 03/05/20 21:00 03/09/20 12:13 Insulin Lispro 100 Unit/Ml 3 Ml Vial SUBCUT 6 unit QIDACHS [facility] Administration Protocol Melatonin 6 mg 03/06/20 21:00 Melatonin 3 Mg Tablet PO BEDTIME PRN Insomnia Methylprednisolone Sodium Succinate 60 mg 03/09/20 10:00 03/09/20 11:15 Methylprednisolone Sod Succ/Pf 125 Mg/2 Ml Vial IVPUSH 60 mg Q6H [facility] Administration Metoprolol Tartrate 25 mg 03/05/20 21:00 03/09/20 08:22 Metoprolol Tartrate 25 Mg Tablet PO 25 mg BID [facility] Administration Protocol Montelukast Sodium 10 mg 03/06/20 09:00 03/09/20 08:22 Montelukast Sodium 10 Mg Tablet PO 10 mg DAILY [facility] Administration Omeprazole 20 mg 03/06/20 06:30 03/09/20 05:16 Omeprazole 20 Mg Capsule. PO Not Given DAILY@0630 [facility] Pharmacy Consult 1 each 03/05/20 16:16 Consult Rx Perform Med Rec MISCELLANE ONCE PRN Consult order Pravastatin Sodium 10 mg 03/06/20 09:00 03/09/20 08:23 Pravastatin Sodium 10 Mg Tablet PO 10 mg DAILY [facility] Administration Sodium Chloride 3 ml 03/06/20 00:00 03/09/20 08:22 0.9 % Sodium Chloride Flush 3 Ml Syringe IVFLUSH 3 ml QSHIFT [facility] Administration Labs CBC & Chem 7: 03/09/20 06:22 03/09/20 06:22 Microbiology Microbiology Results: Microbiology 03/08/20 06:39 Blood - Venous Blood Culture - Preliminary No growth after 24 hours. 03/08/20 06:39 Blood - Venous Blood Culture - Preliminary No growth after 24 hours. 03/06/20 19:07 Blood - Venous Blood Culture - Preliminary No growth after 48 hours. 03/06/20 19:07 Blood - Venous Blood Culture - Preliminary No growth after 48 hours. 03/05/20 13:44 Blood - Venous Blood Culture - Preliminary No growth after 48 hours. 03/05/20 13:29 Blood - Venous Blood Culture - Preliminary No growth after 48 hours. Assessment and Plan (1) Acute respiratory failure: Status: Acute (2) COVID-19: Problem details: He has acute symptoms with headaches predominant within 4 days He has no evidence of hypoxia He is on room air He has no lobar infiltrate,leukocytosis or productive sputum so no bacterial pneumonia likely Status: Acute (3) Pneumonia: Status: Acute (4) Hyponatremia: Status: Acute Assessment and Plan: Acute hypoxic respiratory failure secondary to COVID pneumonia V/Q scan negative, elevated D-dimer 802 Patient noted to have worsening hypoxemia initially was on room air that was placed on non-rebreather mask currently on high-flow oxygen, consulted Dr. Rao from pulmonology Patient placed home on IV Solu Medrol, antibiotics adjusted, azithromycin replaced with IV doxycyclin continue IV ceftriaxone Continue high-flow oxygen recommend frequent change in position Acute kidney injury Resolved Diabetes Blood sugar in 200 range due to use of steroid will adjust dose of Insulin sliding scale Asthma On IV steroid, Continue Flovent and singular hyponatremia sodium 129 in the setting of SARS COV 2 and recent use of HCTZ being followed by Nephrology they recommended fluid restriction will follow urine sodium and osmolality DVT prophylaxis on Lovenox 0.5 milligram/kg due to elevated D-dimer
[2020-03-09 16:04] LABS: Glucose, Whole Blood 204 mg/dL (60-115)
[2020-03-09 20:19] LABS: Glucose, Whole Blood 164 mg/dL (60-115)
[2020-03-09] MEDS: Doxycycline Hyclate 100 MG in 0.9 % Sodium Chloride 250 ML 166.7 MG IV (20:33)
[2020-03-10] VITALS (15 sets, daily range): BP systolic 116–158; BP diastolic 59–94; PULSE 90–113; RESP 18–22; TEMP 36.2–37.3; O2SAT 89–95
[2020-03-10] MEDS: methylPREDNISolone Sod Succ/PF 125 MG/2 ML VIAL 60 MG IVPUSH ×4 (05:24→21:33)
[2020-03-10] MEDS: cefTRIAXone sodium 1 GM in 0.9 % Sodium Chloride 50 ML IV (05:25)
[2020-03-10] MEDS: Omeprazole 20 MG CAPSULE.DR PO (05:25)
[2020-03-10 07:07] LABS: Anion Gap 22 (12-20); Blood Urea Nitrogen 40 mg/dL (9-16); Calcium 7.9 mg/dL (8.4-10.2); Carbon Dioxide 14 mmol/L (22-29); Chloride 96 mmol/L (96-108); Creatinine Clr Calc Pharmacy 55.7; Estimated Glomerular Filt Rate > 60; Glucose Random 234 mg/dL (60-115); Potassium 4.4 mmol/l (3.3-5.1); Sodium 128 mmol/L (135-145)
--- NOTE | 2020-03-10 07:51 | XR_ITS ---
EXAMINATION: XR CHEST CLINICAL INFORMATION: Abnormal chest, follow-up. COMPARISON: 03/09/2020 and 03/05/2020 chest radiographs. TECHNIQUE: Frontal view of the chest was obtained. FINDINGS: Lordotic positioning and low lung volumes limit evaluation. Diffuse increased linear opacities are again seen bilaterally with similar distribution, but mild interval decrease in prominence. The heart and mediastinal structures are unremarkable. XR/XR chest 1V IMPRESSION: Mild interval decrease in linear pulmonary opacities bilaterally. These are nonspecific and could be cardiogenic however an infectious/inflammatory process cannot be excluded.
[2020-03-10 07:52] LABS: Glucose, Whole Blood 259 mg/dL (60-115)
[2020-03-10] MEDS: Insulin Lispro 100 UNIT/ML 3 ML VIAL SUBCUT ×4 (08:26→21:36)
[2020-03-10] MEDS: Ferrous Sulfate 324 MG TABLET.DR PO ×2 (08:27→21:33)
[2020-03-10] MEDS: Pravastatin Sodium 10 MG TABLET PO (08:27)
[2020-03-10] MEDS: Calcium + Vitamin D 250 MG TABLET PO ×2 (08:27→21:33)
[2020-03-10] MEDS: Metoprolol Tartrate 25 MG TABLET PO ×2 (08:27→21:33)
[2020-03-10] MEDS: Montelukast Sodium 10 MG TABLET PO (08:27)
[2020-03-10] MEDS: Aspirin Enteric Coated 81 MG TABLET.DR PO (08:27)
[2020-03-10] MEDS: 0.9 % Sodium Chloride Flush 3 ML SYRINGE IVFLUSH ×3 (08:28→23:57)
--- NOTE | 2020-03-10 09:51 | P.PNPL_ITS ---
Subjective Subjective Date of Service: 03/10/20 Interval history: The patient was seen on exam. Continues to be on 100% high- flow. Has been dyspneic and still coughing which is nonproductive in nature. He was agreeable to trying to perform awake prone. His steroids were increased in his Lovenox dose was also increased. The patient has some broad-spectrum antibiotics at this time. We will check his SARs cov2 ab at this time. His initial symptoms started back around March 01, therefore, Remdisivir would not be effective at this time Objective Data Labs CBC & Chem 7: 03/09/20 06:22 03/10/20 05:43 Labs: Laboratory Results - last 24 hr 03/09/20 03/09/20 03/09/20 00:31 11:01 11:49 Sodium Potassium Chloride Carbon Dioxide Anion Gap BUN Creatinine Estim Creat Clear Calc Estimated GFR POC Glucose 252 H Random Glucose Calcium B-Natriuretic Peptide 28 NT-Pro-B Natriuret Pep Cancelled 03/09/20 03/09/20 03/10/20 15:54 20:07 05:43 Sodium 128 L Potassium 4.4 Chloride 96 Carbon Dioxide 14 L Anion Gap 22 H BUN 40 H Creatinine 0.89 Estim Creat Clear Calc 55.7 Estimated GFR > 60 POC Glucose 204 H 164 H Random Glucose 234 H Calcium 7.9 L B-Natriuretic Peptide NT-Pro-B Natriuret Pep 03/10/20 07:26 Sodium Potassium Chloride Carbon Dioxide Anion Gap BUN Creatinine Estim Creat Clear Calc Estimated GFR POC Glucose 259 H Random Glucose Calcium B-Natriuretic Peptide NT-Pro-B Natriuret Pep Microbiology Microbiology Results: Microbiology 03/08/20 06:39 Blood - Venous Blood Culture - Preliminary No growth after 48 hours. 03/08/20 06:39 Blood - Venous Blood Culture - Preliminary No growth after 48 hours. 03/06/20 19:07 Blood - Venous Blood Culture - Preliminary No growth after 48 hours. 03/06/20 19:07 Blood - Venous Blood Culture - Preliminary No growth after 48 hours. 03/05/20 13:44 Blood - Venous Blood Culture - Preliminary No growth after 48 hours. 03/05/20 13:29 Blood - Venous Blood Culture - Preliminary No growth after 48 hours. Review of Systems Constitutional: Reports headache(s) Reports headache(s) Respiratory: Reports chest congestion and Reports cough Reports system reviewed and no additional complaints, except as documented, Reports as per HPI and Reports headache(s) Physical Exam Vital Signs: Vital Signs: Last Vital Signs Temp 98.2 F 03/10/20 07:23 Pulse 108 H 03/10/20 07:23 Resp 20 03/10/20 07:23 BP 147/74 H 03/10/20 07:23 Pulse Ox 91 L 03/10/20 07:23 Body Mass Index 23.5 Const: General: alert, ill appearing and tired appearing HENMT: General nose exam: Abnormal external nose present and Nasal discharge present Eyes: Pupils: Equal, round and reactive pupils present Neck: Neck: Yes normal visual inspection, Yes full ROM and Yes no lymphadenopathy Chest: Chest palpation & inspection: normal inspection of the chest Resp: Auscultation: rales bilateral and diffuse and diminished lung sounds Cardio: Rate: regular rate Rhythm: regular rhythm Heart sounds: S1 normal heart sound present and S2 normal heart sound present GI: Palpation (GI): Soft to palpation and nontender Auscultation: normal bowel sounds : General: Yes no CVA tenderness Back/Spine/Pelvis: Back: no CVA tenderness Skin: General skin exam: rashes and/or lesions noted Neuro: Cranial nerves: Yes Equal, round and reactive pupils present Assessment and Plan Assessment and plan (1) Pneumonia: Status: Acute Assessment and Plan: continue Abx, no fevers, no WBC (2) Acute respiratory failure: Status: Acute Assessment and Plan: continue HF Awake proning (3) COVID-19: Status: Acute Assessment and Plan: coninue high dose solumedrol Continue lovenox bid Time Spent With Patient Time: Total time spent is greater than 50% in coordination of care (as documented) at patient's floor/unit and/or counseling patient: Time with patient: 15 - 24 minutes
[2020-03-10] MEDS: Ascorbic Acid 500 MG TABLET PO (10:25)
[2020-03-10] MEDS: Doxycycline Hyclate 100 MG in 0.9 % Sodium Chloride 250 ML 166.67 MG IV ×2 (10:26→21:35)
[2020-03-10] MEDS: Enoxaparin Sodium 40 MG/0.4 ML SYRINGE SUBCUT ×2 (10:27→21:34)
[2020-03-10 11:01] LABS: SARS COV2 IgG Negative (Negative)
[2020-03-10 11:20] LABS: Glucose, Whole Blood 249 mg/dL (60-115)
[2020-03-10] MEDS: Fluticasone Propionate 100 MCG BLST.W.DEV 2 PUFF INHALE ×2 (12:06→20:22)
[2020-03-10 13:54] LABS: Alanine Aminotransferase 31 U/L (0-40); Albumin Level 3.5 g/dL (3.5-5.0); Alkaline Phosphatase 57 U/L (39-117); Aspartate Amino Transferase 28 U/L (5-37); Bilirubin Direct 0.2 mg/dL (0.0-0.5); Bilirubin Total 0.4 mg/dL (0.0-1.0); Total Protein 6.1 g/dL (6.5-8.0)
--- NOTE | 2020-03-10 14:58 | PM.PNNEP ---
Subjective Subjective Date of Service: 03/10/20 Interval history: seen and examined complains of shortness of breath denies chest pain Physical Exam Vital Signs: Vital Signs: Last Vital Signs Temp 99.1 F 03/10/20 11:05 Pulse 112 H 03/10/20 12:09 Resp 20 03/10/20 12:08 BP 116/59 L 03/10/20 11:05 Pulse Ox 91 L 03/10/20 11:05 Body Mass Index 23.5 Const: General: no acute distress HENMT: Head: Yes normocephalic and Yes atraumatic Neck: Neck: Yes supple Resp: Auscultation: diminished lung sounds Cardio: Heart sounds: S1 normal heart sound present and S2 normal heart sound present GI: Palpation (GI): Soft to palpation and nontender Extrem: General: No edema Objective Data Labs CBC & Chem 7: 03/09/20 06:22 03/10/20 05:43 Labs: Laboratory Results - last 24 hr 03/09/20 03/09/20 03/10/20 15:54 20:07 05:43 Sodium 128 L Potassium 4.4 Chloride 96 Carbon Dioxide 14 L Anion Gap 22 H BUN 40 H Creatinine 0.89 Estim Creat Clear Calc 55.7 Estimated GFR > 60 POC Glucose 204 H 164 H Random Glucose 234 H Calcium 7.9 L Total Bilirubin Direct Bilirubin AST ALT Alkaline Phosphatase Total Protein Albumin SARS-CoV-2 IgG Ab 03/10/20 03/10/20 03/10/20 07:26 09:26 11:02 Sodium Potassium Chloride Carbon Dioxide Anion Gap BUN Creatinine Estim Creat Clear Calc Estimated GFR POC Glucose 259 H 249 H Random Glucose Calcium Total Bilirubin Direct Bilirubin AST ALT Alkaline Phosphatase Total Protein Albumin SARS-CoV-2 IgG Ab Negative 03/10/20 13:17 Sodium Potassium Chloride Carbon Dioxide Anion Gap BUN Creatinine Estim Creat Clear Calc Estimated GFR POC Glucose Random Glucose Calcium Total Bilirubin 0.4 Direct Bilirubin 0.2 AST 28 ALT 31 Alkaline Phosphatase 57 Total Protein 6.1 L Albumin 3.5 D SARS-CoV-2 IgG Ab Microbiology Microbiology Results: Microbiology 03/08/20 06:39 Blood - Venous Blood Culture - Preliminary No growth after 48 hours. 03/08/20 06:39 Blood - Venous Blood Culture - Preliminary No growth after 48 hours. 03/06/20 19:07 Blood - Venous Blood Culture - Preliminary No growth after 48 hours. 03/06/20 19:07 Blood - Venous Blood Culture - Preliminary No growth after 48 hours. 03/05/20 13:44 Blood - Venous Blood Culture - Preliminary No growth after 48 hours. 03/05/20 13:29 Blood - Venous Blood Culture - Preliminary No growth after 48 hours. Assessment & Plan Assessment and plan (1) Hyponatremia: Status: Acute (2) COVID-19: Status: Acute (3) Metabolic acidosis: Status: Acute Assessment and Plan: hyponatremia in the setting of SARS COV 2 and recent use of HCTZ urine osmolality and urine sodium ordered non osmotic increase ADH REC added sodium bicarbonate 650 mg bid fluid restriction follow kidney function and electrolytes Time Spent With Patient Time: Total time spent is greater than 50% in coordination of care (as documented) at patient's floor/unit and/or counseling patient:
[2020-03-10 16:33] LABS: Glucose, Whole Blood 251 mg/dL (60-115)
--- NOTE | 2020-03-10 16:50 | CONS_ITS ---
DATE OF SERVICE: 03/09/2020 HISTORY OF PRESENT ILLNESS: I was asked to assist in the management of this 85-year-old patient, who is currently being treated for COVID-19 pneumonia and is with a low serum sodium. The patient is currently on steroids, lethargic, and had presented to the hospital with generalized weakness, headaches, and decreased oral intake. The patient had chills, but denied having an elevated temperature. There was initially no shortness of breath or abdominal pain. The patient was noted to have elevated serum creatinine, which subsequently improved. PAST MEDICAL HISTORY: Remarkable for hypertension, diabetes mellitus, dyslipidemia, osteoarthritis, headaches, asthma, and depression. MEDICATIONS: As an outpatient include amlodipine, aspirin, iron sulfate, fluticasone, hydrochlorothiazide, metformin, metoprolol, omeprazole, and pravastatin. ALLERGIES: HE IS ALLERGIC TO PENICILLIN. SOCIAL HISTORY: He does not smoke. FAMILY HISTORY: Negative for kidney disease. REVIEW OF SYSTEMS: 10-point review of systems negative except pertinent in the history of present illness. PHYSICAL EXAMINATION: VITAL SIGNS: Blood pressure is 170/71, heart rate 86, respiratory rate 22, and temperature 98. CONSTITUTIONAL: Looks his stated age. Lethargic. HEAD: Atraumatic and normocephalic. NECK: Supple. LUNGS: Good breath sounds. CARDIOVASCULAR: S1 and S2. No rub. ABDOMEN: Soft and nontender. EXTREMITIES: No peripheral edema. LABORATORY DATA: Labs showed a sodium of 129, potassium 4.2, chloride 96, CO2 of 16, BUN 34, and creatinine 0.98. Creatinine on admission was 1.41. Serum osmolality is 288. Urine sodium not available. Urine osmolality not available. IMPRESSION: 1. Hyponatremia. 2. Metabolic acidosis. This is a patient with hyponatremia in the setting of COVID-19 pneumonia. He had been on hydrochlorothiazide, which can also cause hyponatremia. I suspect that he has a known osmotic increase in ADH, and we will check his urine osmolality and urine sodium. I will have him on a free water restriction. There is no indication now for urea powder or sodium chloride tablet. We will follow closely his kidney function and electrolytes. Thank you for allowing me to participate in the care of this patient. MD ROSANNA Botello/MONICA / [id number]
[2020-03-10 17:21] LABS: Osmolality Urine 654 mosm/kg (373-1093)
--- NOTE | 2020-03-10 17:44 | HO.PM.IMPN ---
Subjective Subjective Date of Service: 03/10/20 Interval History: Patient being followed for a COVID-19 infection and hypoxic respiratory failure, patient continued to complain of shortness of breath and dry cough, is still requiring 100% high-flow oxygen, has tachypnea as well as tachycardia. Review of Systems General no headache, no dizziness . CVS no chest pain, no palpitation. Respiratory shortness of breath, dry cough . Gastrointestinal no nausea, no vomiting, no abdominal pain Physical Exam Vital Signs: Vital Signs: Last Vital Signs Temp 97.5 F 03/10/20 15:23 Pulse 110 H 03/10/20 15:23 Resp 22 H 03/10/20 15:23 BP 157/90 H 03/10/20 15:23 Pulse Ox 89 L 03/10/20 15:23 Body Mass Index 23.5 General mild respiratory distress frail appearing . Neck is supple no JVD. CVS regular rate rhythm, Respiratory lungs coarse breath sounds, diminished , mild respiratory distress with talking Gastrointestinal abdomen soft, nontender, bowel sounds audible. Extremities no clubbing cyanosis or edema. Neuro nonfocal ,speech clear. Skin no rash Objective Data Current Medications Generic Name Dose Route Start Last Admin Trade Name Freq PRN Reason Stop Dose Admin Acetaminophen 650 mg 03/05/20 16:50 03/09/20 18:15 Acetaminophen 325 Mg Tablet PO 650 mg RQ6H PRN Administration HEADACHES , Ascorbic Acid 500 mg 03/10/20 09:00 03/10/20 10:25 Ascorbic Acid 500 Mg Tablet PO 500 mg DAILY ACE Administration Aspirin 81 mg 03/06/20 09:00 03/10/20 08:27 Aspirin Enteric Coated 81 Mg Tablet. PO 81 mg DAILY ACE Administration Calcium Carbonate/Cholecalciferol 250 mg 03/05/20 21:00 03/10/20 08:27 Calcium + Vitamin D 250 Mg Tablet PO 250 mg BID ACE Administration Docusate Sodium 100 mg 03/05/20 17:25 Docusate Sodium 100 Mg Capsule PO BID PRN Constipation Enoxaparin Sodium 40 mg 03/09/20 10:15 03/10/20 10:27 Enoxaparin Sodium 40 Mg/0.4 Ml Syringe SUBCUT 40 mg Q12H ACE Administration Ferrous Sulfate 324 mg 03/05/20 21:00 03/10/20 08:27 Ferrous Sulfate 324 Mg Tablet. PO 324 mg BID ACE Administration Fluticasone Propionate 2 spray 12/24/20 17:25 Fluticasone Propionate Nasal 16 Gm Riga NOSTRIL-B DAILY PRN Nasal Congestion Fluticasone Propionate 2 puff 03/05/20 20:00 03/10/20 12:06 Fluticasone Propionate 100 Mcg Blst.W.Dev INHALE 2 puff RBID ACE Administration Ceftriaxone Sodium 1 gm/ 50 mls @ 100 mls/hr 03/08/20 07:00 03/10/20 06:14 Sodium Chloride IV Infused Q24H ACE Infusion Doxycycline Hyclate 100 mg/ 250 mls @ 166.67 mls/hr 03/09/20 10:00 03/10/20 12:17 Sodium Chloride IV Infused Q12H ACE Infusion Insulin Human Lispro 0 unit 03/09/20 16:30 03/10/20 16:40 Insulin Lispro 100 Unit/Ml 3 Ml Vial SUBCUT 8 unit QIDACHS [facility] Administration Protocol Melatonin 6 mg 03/06/20 21:00 Melatonin 3 Mg Tablet PO BEDTIME PRN Insomnia Methylprednisolone Sodium Succinate 60 mg 03/09/20 10:00 03/10/20 16:41 Methylprednisolone Sod Succ/Pf 125 Mg/2 Ml Vial IVPUSH 60 mg Q6H ACE Administration Metoprolol Tartrate 25 mg 03/05/20 21:00 03/10/20 08:27 Metoprolol Tartrate 25 Mg Tablet PO 25 mg BID ACE Administration Protocol Montelukast Sodium 10 mg 03/06/20 09:00 03/10/20 08:27 Montelukast Sodium 10 Mg Tablet PO 10 mg DAILY ACE Administration Omeprazole 20 mg 03/06/20 06:30 03/10/20 05:25 Omeprazole 20 Mg Capsule.Dr PO 20 mg DAILY@0630 [facility] Administration Pharmacy Consult 1 each 03/05/20 16:16 Consult Rx Perform Med Rec MISCELLANE ONCE PRN Consult order Pravastatin Sodium 10 mg 03/06/20 09:00 03/10/20 08:27 Pravastatin Sodium 10 Mg Tablet PO 10 mg DAILY ACE Administration Sodium Bicarbonate 650 mg 03/10/20 21:00 Sodium Bicarbonate 650 Mg Tablet PO BID [facility] Sodium Chloride 3 ml 03/06/20 00:00 03/10/20 16:41 0.9 % Sodium Chloride Flush 3 Ml Syringe IVFLUSH 3 ml QSHIFT [facility] Administration Labs CBC & Chem 7: 03/09/20 06:22 03/10/20 05:43 Microbiology Microbiology Results: Microbiology 03/05/20 13:44 Blood - Venous Blood Culture - Final No growth after 5 days. 03/05/20 13:29 Blood - Venous Blood Culture - Final No growth after 5 days. 03/08/20 06:39 Blood - Venous Blood Culture - Preliminary No growth after 48 hours. 03/08/20 06:39 Blood - Venous Blood Culture - Preliminary No growth after 48 hours. 03/06/20 19:07 Blood - Venous Blood Culture - Preliminary No growth after 48 hours. 03/06/20 19:07 Blood - Venous Blood Culture - Preliminary No growth after 48 hours. Assessment and Plan (1) Metabolic acidosis: Status: Acute (2) Pneumonia: Status: Acute (3) Acute respiratory failure: Status: Acute (4) COVID-19: Status: Acute (5) Acute respiratory failure with hypoxia: Status: Acute (6) Hyponatremia: Status: Acute Assessment and Plan: Acute hypoxic respiratory failure secondary to COVID 19 infection/ pneumonia V/Q scan negative, elevated D-dimer 802 Patient with persistent hypoxia 89% despite high-flow oxygen Will add non-rebreather mask, will continue IV Solumedrol high-dose continue IV doxycycline and IV ceftriaxone and Lovenox twice daily Since symptoms started 8-9 days ago pharmacovigilance safety expert feels patient is not a candidate for remdesivir, SARs IgG antibodies came back negative will add cough medication, encourage proning , frequent position change and IS, will follow clinical course closely patient is full code, ABGs from yesterday showed stable pH and mixed acidosis. Called patient's friend Arabella Rao [phone] she was the only contact given by patient and informed her about patient's clinical condition, got patient's daughters phone number from friend daughter's name is Jazmine # is [phone] she is in [place] informed her about patient's clinical condition requiring high-flow oxygen, despite multiple medication daughter is healthcare proxy along with patient's SACK FILLER Bessie. Will continue to inform daughter about patient's progress, later received phone call from patient's granddaughter Elizabeth she also claims she is the healthcare proxy, her #[phone] so patient has 3 healthcare proxies daughter, granddaughter and SACK F[employer]ER Bessie. Metabolic acidosis patient seen by Nephrology daryn darden added follow BMP closely Acute kidney injury Resolved Diabetes Blood sugar in 200 range due to use of steroid dose of Insulin sliding scale adjusted Asthma On IV steroid, Continue Flovent and singular hyponatremia sodium 128 in the setting of SARS COV 2 and recent use of HCTZ ,now discontinued, being followed by Nephrology they recommended fluid restriction, urine sodium pending and osmolality 654. DVT prophylaxis on Lovenox 0.5 milligram/kg due to elevated D-dimer
[2020-03-10] MEDS: guaiFENesin DM 100/10/5 ML 5 ML SYRUP PO ×2 (17:57→23:55)
[2020-03-10 20:49] LABS: Glucose, Whole Blood 283 mg/dL (60-115)
[2020-03-10] MEDS: Sodium Bicarbonate 650 MG TABLET PO (21:33)
--- NOTE | 2020-03-10 21:49 | PM.IDPN ---
Subjective Subjective Date of Service: 03/22/20 Interval History: he is on high flow 50 liters 100% despite Dexamethasone Objective Data Labs CBC & Chem 7: 03/20/20 05:58 03/20/20 05:58 Labs: Laboratory Results - last 24 hr 03/10/20 03/10/20 03/10/20 05:43 07:26 09:26 Sodium 128 L Potassium 4.4 Chloride 96 Carbon Dioxide 14 L Anion Gap 22 H BUN 40 H Creatinine 0.89 Estim Creat Clear Calc 55.7 Estimated GFR > 60 POC Glucose 259 H Random Glucose 234 H Calcium 7.9 L Total Bilirubin Direct Bilirubin AST ALT Alkaline Phosphatase Total Protein Albumin Urine Osmolality Ur Random Sodium SARS-CoV-2 IgG Ab Negative 03/10/20 03/10/20 03/10/20 11:02 13:17 16:20 Sodium Potassium Chloride Carbon Dioxide Anion Gap BUN Creatinine Estim Creat Clear Calc Estimated GFR POC Glucose 249 H 251 H Random Glucose Calcium Total Bilirubin 0.4 Direct Bilirubin 0.2 AST 28 ALT 31 Alkaline Phosphatase 57 Total Protein 6.1 L Albumin 3.5 D Urine Osmolality Ur Random Sodium SARS-CoV-2 IgG Ab 03/10/20 03/10/20 03/10/20 16:37 16:37 20:35 Sodium Potassium Chloride Carbon Dioxide Anion Gap BUN Creatinine Estim Creat Clear Calc Estimated GFR POC Glucose 283 H Random Glucose Calcium Total Bilirubin Direct Bilirubin AST ALT Alkaline Phosphatase Total Protein Albumin Urine Osmolality 654 Ur Random Sodium 41.0 SARS-CoV-2 IgG Ab Microbiology Microbiology Results: Microbiology 03/05/20 13:44 Blood - Venous Blood Culture - Final No growth after 5 days. 03/05/20 13:29 Blood - Venous Blood Culture - Final No growth after 5 days. 03/08/20 06:39 Blood - Venous Blood Culture - Preliminary No growth after 48 hours. 03/08/20 06:39 Blood - Venous Blood Culture - Preliminary No growth after 48 hours. 03/06/20 19:07 Blood - Venous Blood Culture - Preliminary No growth after 48 hours. 03/06/20 19:07 Blood - Venous Blood Culture - Preliminary No growth after 48 hours. Physical Exam Vital Signs: Vital Signs: Last Vital Signs Temp 98.7 F 03/10/20 20:00 Pulse 104 H 03/10/20 21:01 Resp 20 03/10/20 20:25 BP 120/66 03/10/20 20:00 Pulse Ox 95 03/10/20 21:01 Body Mass Index 23.5 Const: General: ill appearing HENMT: Head: Yes normal to inspection Resp: Effort & Inspection: normal respiratory effort Cardio: Rate: regular rate Rhythm: regular rhythm GI: Palpation (GI): nontender Assessment and Plan Assessment and plan (1) Acute respiratory failure with hypoxia: Status: Acute Assessment and Plan: Continue Dexamethasone (2) Metabolic acidosis: Status: Acute Time Spent With Patient Time: Total time spent is greater than 50% in coordination of care (as documented) at patient's floor/unit and/or counseling patient: Time with patient: 15 - 24 minutes
[2020-03-11] VITALS (15 sets, daily range): BP systolic 134–158; BP diastolic 79–92; PULSE 88–111; RESP 18–26; TEMP 36.4–37.1; O2SAT 92–97
[2020-03-11] MEDS: methylPREDNISolone Sod Succ/PF 125 MG/2 ML VIAL 60 MG IVPUSH ×2 (04:06→09:38)
[2020-03-11] MEDS: guaiFENesin DM 100/10/5 ML 5 ML SYRUP PO ×4 (04:07→22:37)
[2020-03-11] MEDS: Omeprazole 20 MG CAPSULE.DR PO (04:07)
[2020-03-11 06:56] LABS: Basophils Percent Auto 0.1 % (0-2); Hematocrit 41.9 % (42-52); Hemoglobin 14.5 g/dl (14.0-18.0); Imm Gran Abs Auto 0.18 X10*3/uL (0.00-0.03); Imm Gran Pct Auto 1.5 % (0.0-0.4); Lymphocytes Absolute Auto 0.6 X10*3/uL (1.2-4.9); Lymphocytes Percent Auto 4.5 % (20-40); MANUAL DIFF FLAG SCAN; Mean Corpuscular HGB Conc 34.6 g/dl (31.0-36.0); Mean Corpuscular Hemoglobin 31.7 pg (27.0-33.0); Mean Corpuscular Volume 91.7 fL (80-98); Mean Platelet Volume 11.5 fL (9.4-12.4); Monocytes Absolute Auto 0.8 X10*3/uL (0.1-1.2); Monocytes Percent Auto 6.8 % (2-11); Neutrophils Absolute Auto 10.5 X10*3/uL (2.0-8.3); Neutrophils Percent Auto 87.1 % (45-73); Platelet Count 271 X10*3/uL (160-400); Red Blood Count 4.57 X10*6/uL (4.60-5.80); Red Cell Distribution Width 12.4 % (11.0-16.0); SCAN SMEAR FLAG 1; White Blood Count 12.1 X10*3/uL (4.8-10.8)
[2020-03-11 07:18] LABS: SLIDE REVIEW VERIFIED
[2020-03-11 07:22] LABS: Glucose, Whole Blood 321 mg/dL (60-115)
[2020-03-11] MEDS: Fluticasone Propionate 100 MCG BLST.W.DEV 2 PUFF INHALE ×2 (07:53→19:18)
[2020-03-11] MEDS: Aspirin Enteric Coated 81 MG TABLET.DR PO (08:36)
[2020-03-11] MEDS: Ascorbic Acid 500 MG TABLET PO (08:36)
[2020-03-11] MEDS: Pravastatin Sodium 10 MG TABLET PO (08:36)
[2020-03-11] MEDS: Montelukast Sodium 10 MG TABLET PO (08:36)
[2020-03-11] MEDS: Calcium + Vitamin D 250 MG TABLET PO ×2 (08:37→21:00)
[2020-03-11] MEDS: Sodium Bicarbonate 650 MG TABLET PO ×2 (08:37→21:00)
[2020-03-11] MEDS: Metoprolol Tartrate 25 MG TABLET PO ×2 (08:37→21:00)
[2020-03-11] MEDS: Ferrous Sulfate 324 MG TABLET.DR PO ×2 (08:37→21:00)
[2020-03-11] MEDS: Insulin Lispro 100 UNIT/ML 3 ML VIAL SUBCUT ×4 (08:37→22:37)
[2020-03-11] MEDS: cefTRIAXone sodium 1 GM in 0.9 % Sodium Chloride 50 ML IV (08:38)
[2020-03-11] MEDS: Enoxaparin Sodium 40 MG/0.4 ML SYRINGE SUBCUT ×2 (08:38→21:00)
[2020-03-11] MEDS: 0.9 % Sodium Chloride Flush 3 ML SYRINGE IVFLUSH ×2 (09:01→18:19)
[2020-03-11 09:19] LABS: Anion Gap 22 (12-20); Blood Urea Nitrogen 35 mg/dL (9-16); Calcium 8.4 mg/dL (8.4-10.2); Carbon Dioxide 16 mmol/L (22-29); Chloride 98 mmol/L (96-108); Creatinine Clr Calc Pharmacy 47.2; Estimated Glomerular Filt Rate > 60; Glucose Fasting 349 mg/dL (60-99); Sodium 132 mmol/L (135-145)
[2020-03-11] MEDS: Acetaminophen 325 MG TABLET 650 MG PO (09:39)
[2020-03-11] MEDS: Doxycycline Hyclate 100 MG in 0.9 % Sodium Chloride 250 ML 166.67 MG IV ×2 (09:39→20:59)
[2020-03-11 11:30] LABS: Glucose, Whole Blood 392 mg/dL (60-115)
--- NOTE | 2020-03-11 11:30 | PM.PNNEP ---
Subjective Subjective Date of Service: 03/11/20 Interval history: seen and examined complains of SOB denies chest pain, nausea, vomiting Physical Exam Vital Signs: Vital Signs: Last Vital Signs Temp 97.7 F 03/11/20 08:00 Pulse 111 H 03/11/20 08:00 Resp 22 H 03/11/20 11:17 BP 145/89 H 03/11/20 08:00 Pulse Ox 92 03/11/20 08:00 Body Mass Index 23.5 Const: General: no acute distress HENMT: Head: Yes normocephalic and Yes atraumatic Neck: Neck: Yes supple Resp: Auscultation: diminished lung sounds Cardio: Heart sounds: S1 normal heart sound present and S2 normal heart sound present GI: Palpation (GI): Soft to palpation and nontender Extrem: General: No edema Objective Data Labs CBC & Chem 7: 03/11/20 05:59 03/11/20 08:18 Labs: Laboratory Results - last 24 hr 03/10/20 03/10/20 03/10/20 13:17 16:20 16:37 WBC RBC Hgb Hct MCV MCH MCHC RDW Plt Count MPV Immature Gran % (Auto) Neut % (Auto) Lymph % (Auto) [place] % (Auto) Eos % (Auto) Baso % (Auto) Lymph # (Auto) [place] # (Auto) Eos # (Auto) Baso # (Auto) Abs Immat Gran (auto) Absolute Neuts (auto) Absolute Nucleated RBC Nucleated RBC % (auto) Smear Tech's Comments Sodium Potassium Chloride Carbon Dioxide Anion Gap BUN Creatinine Estim Creat Clear Calc Estimated GFR POC Glucose 251 H Random Glucose Fasting Glucose Calcium Total Bilirubin 0.4 Direct Bilirubin 0.2 AST 28 ALT 31 Alkaline Phosphatase 57 Total Protein 6.1 L Albumin 3.5 D Urine Osmolality 654 Ur Random Sodium 03/10/20 03/10/20 03/11/20 16:37 20:35 05:59 WBC 12.1 H RBC 4.57 L Hgb 14.5 Hct 41.9 L MCV 91.7 MCH 31.7 MCHC 34.6 RDW 12.4 Plt Count 271 D MPV 11.5 Immature Gran % (Auto) 1.5 H Neut % (Auto) 87.1 H Lymph % (Auto) 4.5 L [place] % (Auto) 6.8 Eos % (Auto) 0.0 Baso % (Auto) 0.1 Lymph # (Auto) 0.6 L [place] # (Auto) 0.8 Eos # (Auto) 0.0 Baso # (Auto) 0.0 Abs Immat Gran (auto) 0.18 H Absolute Neuts (auto) 10.5 H Absolute Nucleated RBC 0.000 Nucleated RBC % (auto) 0.0 Smear Tech's Comments VERIFIED Sodium Potassium Chloride Carbon Dioxide Anion Gap BUN Creatinine Estim Creat Clear Calc Estimated GFR POC Glucose 283 H Random Glucose Fasting Glucose Calcium Total Bilirubin Direct Bilirubin AST ALT Alkaline Phosphatase Total Protein Albumin Urine Osmolality Ur Random Sodium 41.0 03/11/20 03/11/20 03/11/20 05:59 07:08 08:18 WBC RBC Hgb Hct MCV MCH MCHC RDW Plt Count MPV Immature Gran % (Auto) Neut % (Auto) Lymph % (Auto) [place] % (Auto) Eos % (Auto) Baso % (Auto) Lymph # (Auto) [place] # (Auto) Eos # (Auto) Baso # (Auto) Abs Immat Gran (auto) Absolute Neuts (auto) Absolute Nucleated RBC Nucleated RBC % (auto) Smear Tech's Comments Sodium Cancelled 132 L Potassium Cancelled 4.0 Chloride Cancelled 98 Carbon Dioxide Cancelled 16 L Anion Gap Cancelled 22 H BUN Cancelled 35 H Creatinine Cancelled 1.05 Estim Creat Clear Calc Cancelled 47.2 Estimated GFR Cancelled > 60 POC Glucose 321 H Random Glucose Cancelled Fasting Glucose 349 H D Calcium Cancelled 8.4 D Total Bilirubin Direct Bilirubin AST ALT Alkaline Phosphatase Total Protein Albumin Urine Osmolality Ur Random Sodium 03/11/20 11:19 WBC RBC Hgb Hct MCV MCH MCHC RDW Plt Count MPV Immature Gran % (Auto) Neut % (Auto) Lymph % (Auto) [place] % (Auto) Eos % (Auto) Baso % (Auto) Lymph # (Auto) [place] # (Auto) Eos # (Auto) Baso # (Auto) Abs Immat Gran (auto) Absolute Neuts (auto) Absolute Nucleated RBC Nucleated RBC % (auto) Smear Tech's Comments Sodium Potassium Chloride Carbon Dioxide Anion Gap BUN Creatinine Estim Creat Clear Calc Estimated GFR POC Glucose 392 H* Random Glucose Fasting Glucose Calcium Total Bilirubin Direct Bilirubin AST ALT Alkaline Phosphatase Total Protein Albumin Urine Osmolality Ur Random Sodium Microbiology Microbiology Results: Microbiology 03/05/20 13:44 Blood - Venous Blood Culture - Final No growth after 5 days. 03/05/20 13:29 Blood - Venous Blood Culture - Final No growth after 5 days. 03/08/20 06:39 Blood - Venous Blood Culture - Preliminary No growth after 48 hours. 03/08/20 06:39 Blood - Venous Blood Culture - Preliminary No growth after 48 hours. 03/06/20 19:07 Blood - Venous Blood Culture - Preliminary No growth after 48 hours. 03/06/20 19:07 Blood - Venous Blood Culture - Preliminary No growth after 48 hours. Assessment & Plan Assessment and plan (1) Hyponatremia: Status: Acute (2) COVID-19: Status: Acute (3) Metabolic acidosis: Status: Acute Assessment and Plan: serum sodium better hyponatremia in the setting of SARS COV 2 and recent use of HCTZ urine osmolality and urine sodium ordered non osmotic increase ADH REC continue sodium bicarbonate 650 mg orally bid fluid restriction follow kidney function and electrolytes Time Spent With Patient Time: Total time spent is greater than 50% in coordination of care (as documented) at patient's floor/unit and/or counseling patient:
--- NOTE | 2020-03-11 13:02 | P.PNPL_ITS ---
Subjective Subjective Date of Service: 03/11/20 Interval history: The patient was seen on examined. He has been worsening her respiratory status. Now he has 100% high-flow with the non-rebreather. Still feels short of breath and weak. He is also complaining of a headache. We did recheck his antibiotics and there were nonexistent for the COVID-19 infection so therefore will going to request comfort some plasma at this time. Patient understands that he is not doing well. The hospital team is talking to the family to let them know of the worsening condition. Objective Data Labs CBC & Chem 7: 03/11/20 05:59 03/11/20 08:18 Labs: Laboratory Results - last 24 hr 03/10/20 03/10/20 03/10/20 13:17 16:20 16:37 WBC RBC Hgb Hct MCV MCH MCHC RDW Plt Count MPV Immature Gran % (Auto) Neut % (Auto) Lymph % (Auto) Kleberg % (Auto) Eos % (Auto) Baso % (Auto) Lymph # (Auto) Kleberg # (Auto) Eos # (Auto) Baso # (Auto) Abs Immat Gran (auto) Absolute Neuts (auto) Absolute Nucleated RBC Nucleated RBC % (auto) Smear Tech's Comments Sodium Potassium Chloride Carbon Dioxide Anion Gap BUN Creatinine Estim Creat Clear Calc Estimated GFR POC Glucose 251 H Random Glucose Fasting Glucose Calcium Total Bilirubin 0.4 Direct Bilirubin 0.2 AST 28 ALT 31 Alkaline Phosphatase 57 Total Protein 6.1 L Albumin 3.5 D Urine Osmolality 654 Ur Random Sodium Blood Type Antibody Screen 03/10/20 03/10/20 03/11/20 16:37 20:35 05:59 WBC 12.1 H RBC 4.57 L Hgb 14.5 Hct 41.9 L MCV 91.7 MCH 31.7 MCHC 34.6 RDW 12.4 Plt Count 271 D MPV 11.5 Immature Gran % (Auto) 1.5 H Neut % (Auto) 87.1 H Lymph % (Auto) 4.5 L Kleberg % (Auto) 6.8 Eos % (Auto) 0.0 Baso % (Auto) 0.1 Lymph # (Auto) 0.6 L Kleberg # (Auto) 0.8 Eos # (Auto) 0.0 Baso # (Auto) 0.0 Abs Immat Gran (auto) 0.18 H Absolute Neuts (auto) 10.5 H Absolute Nucleated RBC 0.000 Nucleated RBC % (auto) 0.0 Smear Tech's Comments VERIFIED Sodium Potassium Chloride Carbon Dioxide Anion Gap BUN Creatinine Estim Creat Clear Calc Estimated GFR POC Glucose 283 H Random Glucose Fasting Glucose Calcium Total Bilirubin Direct Bilirubin AST ALT Alkaline Phosphatase Total Protein Albumin Urine Osmolality Ur Random Sodium 41.0 Blood Type Antibody Screen 03/11/20 03/11/20 03/11/20 05:59 07:08 08:18 WBC RBC Hgb Hct MCV MCH MCHC RDW Plt Count MPV Immature Gran % (Auto) Neut % (Auto) Lymph % (Auto) Kleberg % (Auto) Eos % (Auto) Baso % (Auto) Lymph # (Auto) Kleberg # (Auto) Eos # (Auto) Baso # (Auto) Abs Immat Gran (auto) Absolute Neuts (auto) Absolute Nucleated RBC Nucleated RBC % (auto) Smear Tech's Comments Sodium Cancelled 132 L Potassium Cancelled 4.0 Chloride Cancelled 98 Carbon Dioxide Cancelled 16 L Anion Gap Cancelled 22 H BUN Cancelled 35 H Creatinine Cancelled 1.05 Estim Creat Clear Calc Cancelled 47.2 Estimated GFR Cancelled > 60 POC Glucose 321 H Random Glucose Cancelled Fasting Glucose 349 H D Calcium Cancelled 8.4 D Total Bilirubin Direct Bilirubin AST ALT Alkaline Phosphatase Total Protein Albumin Urine Osmolality Ur Random Sodium Blood Type Antibody Screen 03/11/20 03/11/20 11:19 11:19 WBC RBC Hgb Hct MCV MCH MCHC RDW Plt Count MPV Immature Gran % (Auto) Neut % (Auto) Lymph % (Auto) Kleberg % (Auto) Eos % (Auto) Baso % (Auto) Lymph # (Auto) Kleberg # (Auto) Eos # (Auto) Baso # (Auto) Abs Immat Gran (auto) Absolute Neuts (auto) Absolute Nucleated RBC Nucleated RBC % (auto) Smear Tech's Comments Sodium Potassium Chloride Carbon Dioxide Anion Gap BUN Creatinine Estim Creat Clear Calc Estimated GFR POC Glucose 392 H* Random Glucose Fasting Glucose Calcium Total Bilirubin Direct Bilirubin AST ALT Alkaline Phosphatase Total Protein Albumin Urine Osmolality Ur Random Sodium Blood Type O Positive Antibody Screen NEGATIVE Microbiology Microbiology Results: Microbiology 03/05/20 13:44 Blood - Venous Blood Culture - Final No growth after 5 days. 03/05/20 13:29 Blood - Venous Blood Culture - Final No growth after 5 days. 03/08/20 06:39 Blood - Venous Blood Culture - Preliminary No growth after 48 hours. 03/08/20 06:39 Blood - Venous Blood Culture - Preliminary No growth after 48 hours. 03/06/20 19:07 Blood - Venous Blood Culture - Preliminary No growth after 48 hours. 03/06/20 19:07 Blood - Venous Blood Culture - Preliminary No growth after 48 hours. Review of Systems Constitutional: Reports headache(s) Reports headache(s), Denies lip swelling and Denies tongue swelling Cardiovascular: Reports dyspnea Respiratory: Reports cough and Reports dyspnea Gastrointestinal: Denies abdominal pain Musculoskeletal: Denies no additional musculoskeletal complaints Reports system reviewed and no additional complaints, except as documented, Reports as per HPI and Reports headache(s) Psychiatric: Denies no additional psychiatric complaints Hematologic/Lymphatic: Denies easy bleeding and Denies lymphadenopathy Allergic/Immunologic: Denies lip swelling and Denies tongue swelling Physical Exam Vital Signs: Vital Signs: Last Vital Signs Temp 98.0 F 03/11/20 11:51 Pulse 93 03/11/20 11:51 Resp 18 03/11/20 11:51 BP 134/82 03/11/20 11:51 Pulse Ox 95 03/11/20 11:51 Body Mass Index 23.5 Const: General: ill appearing and lethargic Orientation/consciousness: lethargic HENMT: General nose exam: Abnormal external nose present and Nasal discharge present Eyes: Pupils: Equal, round and reactive pupils present Neck: Neck: Yes normal visual inspection, Yes full ROM and Yes no lymphade nopathy Chest: Chest palpation & inspection: normal inspection of the chest Resp: Auscultation: diminished lung sounds Cardio: Rate: regular rate Rhythm: regular rhythm Heart sounds: S1 normal heart sound present and S2 normal heart sound present GI: Palpation (GI): Soft to palpation and nontender Auscultation: normal bowel sounds : General: Yes no CVA tenderness Back/Spine/Pelvis: Back: no CVA tenderness Skin: General skin exam: rashes and/or lesions noted Neuro: Cranial nerves: Yes Equal, round and reactive pupils present Assessment and Plan Assessment and plan (1) Acute respiratory failure with hypoxia: Status: Acute Assessment and Plan: Continue high-flow Goals of care should be discussed with the family as he may require invasive ventilation. (2) Pneumonia: Status: Acute Assessment and Plan: Continue broad covered (3) COVID-19: Status: Acute Assessment and Plan: Convalescent plasma to be provided today Continue high-dose Solu-Medrol, start decreasing tomorrow Time Spent With Patient Time: Total time spent is greater than 50% in coordination of care (as documented) at patient's floor/unit and/or counseling patient: Time with patient: 15 - 24 minutes
--- NOTE | 2020-03-11 13:45 | MHC.CM.PN ---
HCP document search unsuccessful. His Dtr, Jazmine is Macedonian speaking. Communication was via phone/foreign language interpreter. His dtr does not have a copy of his HCP. She gave the phone# of Bessie, Mr Christian's [employer]. She did not have a copy. She went to the Pts home to search for the document. She was not able to locate the HCP. Dr Duggan, the Pts PCP @ [facility] was contacted. EMR reviewed by Medical Records Dept. There is no HCP document in his EMR. The MD was notified that there is not a HCP document.
--- NOTE | 2020-03-11 16:02 | HO.PM.IMPN ---
Subjective Subjective Date of Service: 03/11/20 Interval History: Patient being followed for COVID-19 infection and acute respiratory failure with hypoxia, patient complaining of headache today, poor appetite requesting for protein shakes, continue to require high-flow oxygen due to persistent hypoxia no change overnight. Review of Systems General headache, no fever chills. CVS no chest pain, no palpitation. Respiratory dry cough, shortness of breath. Gastrointestinal no nausea no vomiting, no abdominal pain, poor appetite Physical Exam Vital Signs: Vital Signs: Last Vital Signs Temp 98.7 F 03/11/20 15:34 Pulse 108 H 03/11/20 15:34 Resp 22 H 03/11/20 15:34 BP 148/79 H 03/11/20 15:34 Pulse Ox 94 03/11/20 15:34 Body Mass Index 23.5 General patient resting comfortably in no acute distress. Neck is supple no JVD. CVS regular rate rhythm, Respiratory lungs coarse breath sound, mild tachypnea, no respiratory distress. Gastrointestinal abdomen soft, nontender, bowel sounds audible. Extremities no edema. Neuro nonfocal. Skin no rash Objective Data Current Medications Generic Name Dose Route Start Last Admin Trade Name Freq PRN Reason Stop Dose Admin Acetaminophen 650 mg 03/05/20 16:50 03/11/20 09:39 Acetaminophen 325 Mg Tablet PO 650 mg RQ6H PRN Administration HEADACHES , Ascorbic Acid 500 mg 03/10/20 09:00 03/11/20 08:36 Ascorbic Acid 500 Mg Tablet PO 500 mg DAILY ACE Administration Aspirin 81 mg 03/06/20 09:00 03/11/20 08:36 Aspirin Enteric Coated 81 Mg Tablet. PO 81 mg DAILY ACE Administration Calcium Carbonate/Cholecalciferol 250 mg 03/05/20 21:00 03/11/20 08:37 Calcium + Vitamin D 250 Mg Tablet PO 250 mg BID ACE Administration Docusate Sodium 100 mg 03/05/20 17:25 Docusate Sodium 100 Mg Capsule PO BID PRN Constipation Enoxaparin Sodium 40 mg 03/09/20 10:15 03/11/20 08:38 Enoxaparin Sodium 40 Mg/0.4 Ml Syringe SUBCUT 40 mg Q12H ACE Administration Ferrous Sulfate 324 mg 03/05/20 21:00 03/11/20 08:37 Ferrous Sulfate 324 Mg Tablet. PO 324 mg BID ACE Administration Fluticasone Propionate 2 spray 03/05/20 17:25 Fluticasone Propionate Nasal 16 Gm [place] NOSTRIL-B DAILY PRN Nasal Congestion Fluticasone Propionate 2 puff 03/05/20 20:00 03/11/20 07:53 Fluticasone Propionate 100 Mcg Blst.W.Dev INHALE 2 puff RBID ACE Administration Guaifenesin/Dextromethorphan 5 ml 03/10/20 17:45 03/11/20 11:26 Guaifenesin Dm 100/10/5 Ml 5 Ml Syrup PO 5 ml Q6H ACE Administration Ceftriaxone Sodium 1 gm/ 50 mls @ 100 mls/hr 03/08/20 07:00 03/11/20 09:44 Sodium Chloride IV Infused Q24H ACE Infusion Doxycycline Hyclate 100 mg/ 250 mls @ 166.67 mls/hr 03/09/20 10:00 03/11/20 11:34 Sodium Chloride IV Infused Q12H ACE Infusion Insulin Human Lispro 0 unit 03/09/20 16:30 03/11/20 11:27 Insulin Lispro 100 Unit/Ml 3 Ml Vial SUBCUT 12 unit QIDACHS ACE Administration Protocol Melatonin 6 mg 03/06/20 21:00 Melatonin 3 Mg Tablet PO BEDTIME PRN Insomnia Methylprednisolone Sodium Succinate 60 mg 03/09/20 10:00 03/11/20 09:38 Methylprednisolone Sod Succ/Pf 125 Mg/2 Ml Vial IVPUSH 60 mg Q6H ACE Administration Metoprolol Tartrate 25 mg 03/05/20 21:00 03/11/20 08:37 Metoprolol Tartrate 25 Mg Tablet PO 25 mg BID ACE Administration Protocol Montelukast Sodium 10 mg 03/06/20 09:00 03/11/20 08:36 Montelukast Sodium 10 Mg Tablet PO 10 mg DAILY ACE Administration Omeprazole 20 mg 03/06/20 06:30 03/11/20 04:07 Omeprazole 20 Mg Capsule.Dr PO 20 mg DAILY@0630 ACE Administration Ondansetron HCl 4 mg 03/11/20 07:04 Ondansetron Hcl 4 Mg/2 Ml Vial IVPUSH Q6H PRN Nausea Pharmacy Consult 1 each 03/05/20 16:16 Consult Rx Perform Med Rec MISCELLANE ONCE PRN Consult order Pravastatin Sodium 10 mg 03/06/20 09:00 03/11/20 08:36 Pravastatin Sodium 10 Mg Tablet PO 10 mg DAILY ACE Administration Sodium Bicarbonate 650 mg 03/10/20 21:00 03/11/20 08:37 Sodium Bicarbonate 650 Mg Tablet PO 650 mg BID ACE Administration Sodium Chloride 3 ml 03/06/20 00:00 03/11/20 09:01 0.9 % Sodium Chloride Flush 3 Ml Syringe IVFLUSH 3 ml QSHIFT ACE Administration Zinc Sulfate 220 mg 03/12/20 09:00 Zinc Sulfate 220 Mg Capsule PO DAILY [facility] Labs CBC & Chem 7: 03/11/20 05:59 03/11/20 08:18 Microbiology Microbiology Results: Microbiology 03/05/20 13:44 Blood - Venous Blood Culture - Final No growth after 5 days. 03/05/20 13:29 Blood - Venous Blood Culture - Final No growth after 5 days. 03/08/20 06:39 Blood - Venous Blood Culture - Preliminary No growth after 48 hours. 03/08/20 06:39 Blood - Venous Blood Culture - Preliminary No growth after 48 hours. 03/06/20 19:07 Blood - Venous Blood Culture - Preliminary No growth after 48 hours. 03/06/20 19:07 Blood - Venous Blood Culture - Preliminary No growth after 48 hours. Assessment and Plan (1) Acute respiratory failure with hypoxia: Status: Acute (2) Metabolic acidosis: Status: Acute (3) Hyponatremia: Status: Acute (4) Pneumonia: Status: Acute (5) Acute respiratory failure: Status: Acute (6) COVID-19: Status: Acute Assessment and Plan: Acute hypoxic respiratory failure secondary to COVID 19 infection/ pneumonia Patient complaining of headache ,poor appetite, weakness and shortness of breath V/Q scan negative, elevated D-dimer 802 Patient with persistent hypoxia but better than yesterday currently on high-flow oxygen, knee non-rebreather mask discontinued oxygenation 94% continue IV Solumedrol high-dose, continue IV doxycycline and IV ceftriaxone and Lovenox twice daily SARs IgG antibodies came back negative due to persistent hypoxia patient will receive convalescent plasma , encourage proning , frequent position change and IS, will follow clinical course closely patient is full code, ABGs from yesterday showed stable pH and mixed acidosis. Called patient's granddaughter Elizabeth and updated her about patient's clinical condition Will add Fioricet for headache and add protein shakes Metabolic acidosis patient seen by Nephrology bicarb improving, cont. soda bicarb,follow BMP closely Acute kidney injury Resolved Diabetes Blood sugar in 200 range due to use of steroid dose of Insulin sliding scale adjusted Asthma On IV steroid, Continue Flovent and singular hyponatremia sodium 132 in the setting of SARS COV 2 and recent use of HCTZ ,now discontinued, being followed by Nephrology they recommended fluid restriction, urine sodium 41 and osmolality 654. DVT prophylaxis on Lovenox 0.5 milligram/kg due to elevated D-dimer
[2020-03-11 16:49] LABS: Glucose, Whole Blood 212 mg/dL (60-115)
[2020-03-11] MEDS: methylPREDNISolone Sod Succ/PF 125 MG/2 ML VIAL 40 MG IVPUSH (18:19)
[2020-03-11 21:41] LABS: Glucose, Whole Blood 246 mg/dL (60-115)
[2020-03-12] VITALS (15 sets, daily range): BP systolic 153–166; BP diastolic 89–98; PULSE 89–114; RESP 18–22; TEMP 36.4–37; O2SAT 90–97
[2020-03-12] MEDS: 0.9 % Sodium Chloride Flush 3 ML SYRINGE IVFLUSH ×4 (00:42→20:10)
[2020-03-12] MEDS: methylPREDNISolone Sod Succ/PF 125 MG/2 ML VIAL 40 MG IVPUSH ×4 (00:42→16:05)
[2020-03-12] MEDS: guaiFENesin DM 100/10/5 ML 5 ML SYRUP PO ×4 (05:20→23:15)
[2020-03-12] MEDS: Omeprazole 20 MG CAPSULE.DR PO (05:20)
[2020-03-12] MEDS: cefTRIAXone sodium 1 GM in 0.9 % Sodium Chloride 50 ML IV (06:44)
[2020-03-12 07:01] LABS: Anion Gap 19 (12-20); Blood Urea Nitrogen 33 mg/dL (9-16); Calcium 8.4 mg/dL (8.4-10.2); Carbon Dioxide 19 mmol/L (22-29); Chloride 101 mmol/L (96-108); Creatinine Clr Calc Pharmacy 56.3; Estimated Glomerular Filt Rate > 60; Glucose Random 297 mg/dL (60-115); Potassium 3.7 mmol/l (3.3-5.1); Sodium 135 mmol/L (135-145)
[2020-03-12] MEDS: Fluticasone Propionate 100 MCG BLST.W.DEV 2 PUFF INHALE ×2 (07:38→20:05)
[2020-03-12] MEDS: Sodium Bicarbonate 650 MG TABLET PO ×2 (07:53→20:06)
[2020-03-12] MEDS: Insulin Lispro 100 UNIT/ML 3 ML VIAL SUBCUT ×4 (07:53→20:06)
[2020-03-12] MEDS: Ascorbic Acid 500 MG TABLET PO (07:53)
[2020-03-12] MEDS: Aspirin Enteric Coated 81 MG TABLET.DR PO (07:53)
[2020-03-12] MEDS: Zinc Sulfate 220 MG CAPSULE PO (07:53)
[2020-03-12] MEDS: Pravastatin Sodium 10 MG TABLET PO (07:53)
[2020-03-12] MEDS: Ferrous Sulfate 324 MG TABLET.DR PO ×2 (07:53→20:06)
[2020-03-12] MEDS: Montelukast Sodium 10 MG TABLET PO (07:53)
[2020-03-12] MEDS: Metoprolol Tartrate 25 MG TABLET PO ×2 (07:53→20:09)
[2020-03-12] MEDS: Calcium + Vitamin D 250 MG TABLET PO ×2 (07:53→20:06)
[2020-03-12 08:38] LABS: Glucose, Whole Blood 299 mg/dL (60-115)
[2020-03-12] MEDS: Doxycycline Hyclate 100 MG in 0.9 % Sodium Chloride 250 ML 166.67 MG IV (10:26)
[2020-03-12] MEDS: Enoxaparin Sodium 40 MG/0.4 ML SYRINGE SUBCUT ×2 (10:27→21:46)
[2020-03-12 12:05] LABS: Glucose, Whole Blood 241 mg/dL (60-115)
--- NOTE | 2020-03-12 13:03 | PM.PNPUL ---
Subjective Subjective Date of Service: 03/12/20 Interval history: The patient was seen on exam. He is status post the cumbersome plasma. Tolerated okay. He still has episodes of coughing and difficult to expectorate. Sometimes she takes off his oxygen drops to the 80s. But ultimately his high-flow was able to be weaned down to 80% which is reassuring. Objective Data Labs CBC & Chem 7: 03/11/20 05:59 03/12/20 05:43 Labs: Laboratory Results - last 24 hr 03/11/20 03/11/20 03/11/20 11:19 16:41 21:32 Sodium Potassium Chloride Carbon Dioxide Anion Gap BUN Creatinine Estim Creat Clear Calc Estimated GFR POC Glucose 212 H 246 H Random Glucose Calcium Blood Type O Positive Antibody Screen NEGATIVE 03/12/20 03/12/20 03/12/20 05:43 07:38 11:39 Sodium 135 Potassium 3.7 Chloride 101 Carbon Dioxide 19 L Anion Gap 19 BUN 33 H Creatinine 0.88 Estim Creat Clear Calc 56.3 Estimated GFR > 60 POC Glucose 299 H 241 H Random Glucose 297 H Calcium 8.4 Blood Type Antibody Screen Microbiology Microbiology Results: Microbiology 03/06/20 19:07 Blood - Venous Blood Culture - Final No growth after 5 days. 03/06/20 19:07 Blood - Venous Blood Culture - Final No growth after 5 days. 03/05/20 13:44 Blood - Venous Blood Culture - Final No growth after 5 days. 03/05/20 13:29 Blood - Venous Blood Culture - Final No growth after 5 days. 03/08/20 06:39 Blood - Venous Blood Culture - Preliminary No growth after 48 hours. 03/08/20 06:39 Blood - Venous Blood Culture - Preliminary No growth after 48 hours. Review of Systems Constitutional: Reports headache(s) Reports headache(s) Cardiovascular: Reports dyspnea Respiratory: Reports cough and Reports dyspnea Gastrointestinal: Denies abdominal pain Musculoskeletal: Denies arthralgias Reports system reviewed and no additional complaints, except as documented, Reports as per HPI and Reports headache(s) Physical Exam Vital Signs: Vital Signs: Last Vital Signs Temp 97.5 F 03/12/20 11:41 Pulse 97 03/12/20 11:41 Resp 18 03/12/20 11:41 BP 156/89 H 03/12/20 11:41 Pulse Ox 92 03/12/20 07:40 Body Mass Index 23.5 Const: General: alert HENMT: General nose exam: Abnormal external nose present and Nasal discharge present Eyes: Pupils: Equal, round and reactive pupils present Neck: Neck: Yes normal visual inspection, Yes full ROM and Yes no lymphadenopathy Chest: Chest palpation & inspection: normal inspection of the chest Resp: Auscultation: diminished lung sounds Cardio: Rate: regular rate Rhythm: regular rhythm Heart sounds: S1 normal heart sound present and S2 normal heart sound present GI: Palpation (GI): Soft to palpation and nontender Auscultation: normal bowel sounds : General: Yes no CVA tenderness Back/Spine/Pelvis: Back: no CVA tenderness Skin: General skin exam: rashes and/or lesions noted Neuro: Cranial nerves: Yes Equal, round and reactive pupils present Assessment and Plan Assessment and plan (1) Acute respiratory failure with hypoxia: Status: Acute Assessment and Plan: Continue weaning high-flow, consider dry high-flow (2) Pneumonia: Status: Acute Assessment and Plan: Complete 8 days of antibiotics then consider stopping (3) COVID-19: Problem details: Antibody negative Status: Acute Assessment and Plan: Status post convalescent plasma Time Spent With Patient Time: Total time spent is greater than 50% in coordination of care (as documented) at patient's floor/unit and/or counseling patient: Time with patient: 15 - 24 minutes
[2020-03-12] MEDS: Butalb/Acetamin/Caff 50/325/40 TABLET 1 TAB PO ×2 (13:44→20:06)
--- NOTE | 2020-03-12 14:59 | HO.PM.IMPN ---
Subjective Subjective Date of Service: 03/12/20 Interval History: Patient being followed for COVID-19 infection and related hypoxic respiratory failure patient is intermittently taking oxygen of because he feels he cant keep oxygen any longer, continued to complain of headache otherwise no worsening symptoms of shortness of breath or hypoxia overnight. Review of Systems Review of Systems General complaining of frontal headache, no fever chills. CVS no chest pain, no palpitation. Respiratory dry cough, shortness of breath. Gastrointestinal no nausea, no vomiting, no abdominal pain, poor appetite Physical Exam Vital Signs: Vital Signs: Last Vital Signs Temp 97.5 F 03/12/20 11:41 Pulse 97 03/12/20 11:41 Resp 18 03/12/20 11:41 BP 156/89 H 03/12/20 11:41 Pulse Ox 92 03/12/20 07:40 Body Mass Index 23.5 General patient resting in bed, lying on right side,in no acute distress. Neck is supple no JVD. CVS regular rate rhythm, Respiratory lungs coarse breath sound, mild tachypnea, no respiratory distress. Gastrointestinal abdomen soft, nontender, bowel sounds audible. Extremities no edema. Neuro nonfocal, speech clear. Skin no rash Objective Data Current Medications Generic Name Dose Route Start Last Admin Trade Name Freq PRN Reason Stop Dose Admin Acetaminophen 650 mg 03/05/20 16:50 03/11/20 09:39 Acetaminophen 325 Mg Tablet PO 650 mg RQ6H PRN Administration HEADACHES , Acetaminophen/Butalbital/Caffeine 1 tab 03/11/20 16:44 03/12/20 13:44 Butalb/Acetamin/Caff 50/325/40 Tablet PO 1 tab Q6H PRN Administration headache Alprazolam 0.125 mg 03/12/20 14:49 Alprazolam 0.25 Mg Tablet PO BID PRN anxiety Ascorbic Acid 500 mg 03/10/20 09:00 03/12/20 07:53 Ascorbic Acid 500 Mg Tablet PO 500 mg DAILY ACE Administration Aspirin 81 mg 03/06/20 09:00 03/12/20 07:53 Aspirin Enteric Coated 81 Mg Tablet. PO 81 mg DAILY ACE Administration Calcium Carbonate/Cholecalciferol 250 mg 03/05/20 21:00 03/12/20 07:53 Calcium + Vitamin D 250 Mg Tablet PO 250 mg BID ACE Administration Docusate Sodium 100 mg 03/05/20 17:25 Docusate Sodium 100 Mg Capsule PO BID PRN Constipation Enoxaparin Sodium 40 mg 03/09/20 10:15 03/12/20 10:27 Enoxaparin Sodium 40 Mg/0.4 Ml Syringe SUBCUT 40 mg Q12H ACE Administration Ferrous Sulfate 324 mg 03/05/20 21:00 03/12/20 07:53 Ferrous Sulfate 324 Mg Tablet.Dr PO 324 mg BID ACE Administration Fluticasone Propionate 2 spray 03/05/20 17:25 Fluticasone Propionate Nasal 16 Gm [place] NOSTRIL-B DAILY PRN Nasal Congestion Fluticasone Propionate 2 puff 03/05/20 20:00 03/12/20 07:38 Fluticasone Propionate 100 Mcg Blst.W.Dev INHALE 2 puff RBID ACE Administration Guaifenesin/Dextromethorphan 5 ml 03/10/20 17:45 03/12/20 12:45 Guaifenesin Dm 100/10/5 Ml 5 Ml Syrup PO 5 ml Q6H ACE Administration Ceftriaxone Sodium 1 gm/ 50 mls @ 100 mls/hr 03/08/20 07:00 03/12/20 07:41 Sodium Chloride IV Infused Q24H ACE Infusion Doxycycline Hyclate 100 mg/ 250 mls @ 166.67 mls/hr 03/09/20 10:00 03/12/20 12:46 Sodium Chloride IV Infused Q12H ACE Infusion Insulin Glargine 6 unit 03/12/20 21:00 Insulin Glargine,Hum.Rec.Anlog 100 Unit/Ml 10 Ml Vial SUBCUT BEDTIME [facility] Insulin Human Lispro 0 unit 03/09/20 16:30 03/12/20 12:45 Insulin Lispro 100 Unit/Ml 3 Ml Vial SUBCUT 6 unit QIDACHS [facility] Administration Protocol Melatonin 6 mg 03/06/20 21:00 Melatonin 3 Mg Tablet PO BEDTIME PRN Insomnia Methylprednisolone Sodium Succinate 40 mg 03/12/20 15:00 Methylprednisolone Sod Succ/Pf 125 Mg/2 Ml Vial IVPUSH Q12H [facility] Metoprolol Tartrate 25 mg 03/05/20 21:00 03/12/20 07:53 Metoprolol Tartrate 25 Mg Tablet PO 25 mg BID [facility] Administration Protocol Montelukast Sodium 10 mg 03/06/20 09:00 03/12/20 07:53 Montelukast Sodium 10 Mg Tablet PO 10 mg DAILY ACE Administration Omeprazole 20 mg 03/06/20 06:30 03/12/20 05:20 Omeprazole 20 Mg Capsule. PO 20 mg DAILY@0630 ACE Administration Ondansetron HCl 4 mg 03/11/20 07:04 Ondansetron Hcl 4 Mg/2 Ml Vial IVPUSH Q6H PRN Nausea Pharmacy Consult 1 each 03/05/20 16:16 Consult Rx Perform Med Rec MISCELLANE ONCE PRN Consult order Pravastatin Sodium 10 mg 03/06/20 09:00 03/12/20 07:53 Pravastatin Sodium 10 Mg Tablet PO 10 mg DAILY ACE Administration Sodium Bicarbonate 650 mg 03/10/20 21:00 03/12/20 07:53 Sodium Bicarbonate 650 Mg Tablet PO 650 mg BID ACE Administration Sodium Chloride 3 ml 03/06/20 00:00 03/12/20 07:41 0.9 % Sodium Chloride Flush 3 Ml Syringe IVFLUSH 3 ml QSHIFT ACE Administration Tiotropium Viola 1 puff 03/13/20 08:00 Tiotropium Viola 18 Mcg Cap.W.Dev INHALE RDAILY [facility] Zinc Sulfate 220 mg 03/12/20 09:00 03/12/20 07:53 Zinc Sulfate 220 Mg Capsule PO 220 mg DAILY ACE Administration Labs CBC & Chem 7: 03/11/20 05:59 03/12/20 05:43 Microbiology Microbiology Results: Microbiology 03/06/20 19:07 Blood - Venous Blood Culture - Final No growth after 5 days. 03/06/20 19:07 Blood - Venous Blood Culture - Final No growth after 5 days. 03/05/20 13:44 Blood - Venous Blood Culture - Final No growth after 5 days. 03/05/20 13:29 Blood - Venous Blood Culture - Final No growth after 5 days. 03/08/20 06:39 Blood - Venous Blood Culture - Preliminary No growth after 48 hours. 03/08/20 06:39 Blood - Venous Blood Culture - Preliminary No growth after 48 hours. Assessment and Plan (1) Acute respiratory failure with hypoxia: Status: Acute (2) Metabolic acidosis: Status: Acute (3) Hyponatremia: Status: Acute (4) Pneumonia: Status: Acute (5) COVID-19: Problem details: Antibody negative Status: Acute Assessment and Plan: Acute hypoxic respiratory failure secondary to COVID 19 infection/ pneumonia Patient complaining of headache ,poor appetite, weakness and shortness of breath V/Q scan negative, elevated D-dimer 802 Patient with persistent hypoxia stable in last 24 hours on high-flow oxygen finger oximetry around 92 continue IV Solumedrol taper dose, likely contributing to anxiety, continue IV doxycycline and IV ceftriaxone and Lovenox twice daily SARs IgG antibodies came back negative due to persistent hypoxia patient receiveing convalescent plasma 2nd dose today , will add Spiriva, encourage proning , frequent position change and IS, will follow clinical course closely patient is full code, ABGs showed stable pH and mixed acidosis. cont Fioricet for headache , continue protein shakes, will add low-dose Xanax prn for anxiety Metabolic acidosis patient seen by Nephrology bicarb improving, 19 today, cont. soda bicarb,follow BMP closely Acute kidney injury Resolved Diabetes Blood sugar in 200-300 range due to use of steroid dose of Insulin sliding scale adjusted, will add Lantus and taper steroid Asthma On IV steroid, Continue Flovent and singular, added Spiriva hyponatremia resolved sodium 135 in the setting of SARS COV 2 and recent use of HCTZ ,now discontinued, being followed by Nephrology they recommended fluid restriction, urine sodium 41 and osmolality 654. DVT prophylaxis on Lovenox 0.5 milligram/kg due to elevated D-dimer
--- NOTE | 2020-03-12 15:45 | PM.PNNEP ---
Subjective Subjective Date of Service: 03/12/20 Interval history: Events noted Na is better Physical Exam Vital Signs: Vital Signs: Last Vital Signs Temp 97.5 F 03/12/20 15:26 Pulse 100 03/12/20 15:26 Resp 19 03/12/20 15:26 BP 156/98 H 03/12/20 15:26 Pulse Ox 97 03/12/20 15:26 Body Mass Index 23.5 Objective Data Labs CBC & Chem 7: 03/11/20 05:59 03/12/20 05:43 Labs: Laboratory Results - last 24 hr 03/11/20 03/11/20 03/11/20 11:19 16:41 21:32 Sodium Potassium Chloride Carbon Dioxide Anion Gap BUN Creatinine Estim Creat Clear Calc Estimated GFR POC Glucose 212 H 246 H Random Glucose Calcium Blood Type O Positive Antibody Screen NEGATIVE 03/12/20 03/12/20 03/12/20 05:43 07:38 11:39 Sodium 135 Potassium 3.7 Chloride 101 Carbon Dioxide 19 L Anion Gap 19 BUN 33 H Creatinine 0.88 Estim Creat Clear Calc 56.3 Estimated GFR > 60 POC Glucose 299 H 241 H Random Glucose 297 H Calcium 8.4 Blood Type Antibody Screen Microbiology Microbiology Results: Microbiology 03/06/20 19:07 Blood - Venous Blood Culture - Final No growth after 5 days. 03/06/20 19:07 Blood - Venous Blood Culture - Final No growth after 5 days. 03/05/20 13:44 Blood - Venous Blood Culture - Final No growth after 5 days. 03/05/20 13:29 Blood - Venous Blood Culture - Final No growth after 5 days. 03/08/20 06:39 Blood - Venous Blood Culture - Preliminary No growth after 48 hours. 03/08/20 06:39 Blood - Venous Blood Culture - Preliminary No growth after 48 hours. Assessment & Plan Assessment and plan (1) Hyponatremia: Problem details: Most likely due to HCTZ Na is slowly improving Off HCTZ Keep on free water restriction Status: Acute Time Spent With Patient Time: Total time spent is greater than 50% in coordination of care (as documented) at patient's floor/unit and/or counseling patient:
[2020-03-12 16:15] LABS: Glucose, Whole Blood 231 mg/dL (60-115)
[2020-03-12] MEDS: Acetaminophen 325 MG TABLET 650 MG PO ×2 (16:31→23:15)
[2020-03-12] MEDS: ALPRAZolam 0.25 MG TABLET 0.125 MG PO (16:32)
[2020-03-12 19:58] LABS: Glucose, Whole Blood 238 mg/dL (60-115)
[2020-03-12] MEDS: Insulin Glargine,Hum.rec.anlog 100 UNIT/ML 10 ML VIAL 6 UNIT SUBCUT (20:09)
[2020-03-12] MEDS: Doxycycline Hyclate 100 MG in 0.9 % Sodium Chloride 250 ML 166.7 MG IV (21:45)
[2020-03-13] VITALS (11 sets, daily range): BP systolic 127–157; BP diastolic 83–90; PULSE 84–128; RESP 18–26; TEMP 36.1–37.2; O2SAT 88–98
--- NOTE | 2020-03-13 00:30 | PC.NURSE ---
Pt complaining of anxiety, alert to person and place only. Pt occasionally pulling off nrb, desats to low 80s. Prn xanax given with good effect. Maintaining spO2 >95%.
[2020-03-13] MEDS: ALPRAZolam 0.25 MG TABLET 0.125 MG PO ×2 (00:37→12:18)
[2020-03-13] MEDS: methylPREDNISolone Sod Succ/PF 125 MG/2 ML VIAL 40 MG IVPUSH ×2 (02:51→15:53)
[2020-03-13] MEDS: Omeprazole 20 MG CAPSULE.DR PO (05:58)
[2020-03-13] MEDS: guaiFENesin DM 100/10/5 ML 5 ML SYRUP PO ×4 (05:58→21:44)
[2020-03-13] MEDS: cefTRIAXone sodium 1 GM in 0.9 % Sodium Chloride 50 ML IV (06:00)
[2020-03-13] MEDS: Butalb/Acetamin/Caff 50/325/40 TABLET 1 TAB PO (06:01)
[2020-03-13 07:48] LABS: Glucose, Whole Blood 219 mg/dL (60-115)
[2020-03-13] MEDS: Fluticasone Propionate 100 MCG BLST.W.DEV 2 PUFF INHALE ×2 (08:15→21:01)
[2020-03-13] MEDS: Enoxaparin Sodium 40 MG/0.4 ML SYRINGE SUBCUT ×2 (09:45→21:44)
[2020-03-13] MEDS: Sodium Bicarbonate 650 MG TABLET PO ×2 (09:45→19:26)
[2020-03-13] MEDS: Zinc Sulfate 220 MG CAPSULE PO (09:45)
[2020-03-13] MEDS: Pravastatin Sodium 10 MG TABLET PO (09:45)
[2020-03-13] MEDS: Calcium + Vitamin D 250 MG TABLET PO ×2 (09:45→19:26)
[2020-03-13] MEDS: Doxycycline Hyclate 100 MG in 0.9 % Sodium Chloride 250 ML 166.67 MG IV ×2 (09:46→21:44)
[2020-03-13] MEDS: Aspirin Enteric Coated 81 MG TABLET.DR PO (09:46)
[2020-03-13] MEDS: Ferrous Sulfate 324 MG TABLET.DR PO ×2 (09:46→19:26)
[2020-03-13] MEDS: Ascorbic Acid 500 MG TABLET PO (09:46)
[2020-03-13] MEDS: Montelukast Sodium 10 MG TABLET PO (09:46)
[2020-03-13] MEDS: Metoprolol Tartrate 25 MG TABLET PO ×2 (09:46→20:38)
[2020-03-13] MEDS: 0.9 % Sodium Chloride Flush 3 ML SYRINGE IVFLUSH ×3 (09:47→21:43)
[2020-03-13 12:10] LABS: Glucose, Whole Blood 364 mg/dL (60-115)
[2020-03-13] MEDS: Insulin Lispro 100 UNIT/ML 3 ML VIAL SUBCUT ×2 (12:18→17:52)
--- NOTE | 2020-03-13 13:33 | P.PNIM_ITS ---
Subjective Subjective Date of Service: 03/14/20 Interval History: Patient complaining of headache, nasal dryness and discomfort with continues use of oxygen , denies shortness of breath or chest pain, no change in oxygen requirement in last several days. Review of Systems Review of Systems General complaining of frontal headache, no fever,no chills, dry nose. CVS no chest pain, no palpitation. Respiratory dry cough, no shortness of breath. Gastrointestinal no nausea, no vomiting, no abdominal pain, poor appetite Physical Exam Vital Signs: Vital Signs: Last Vital Signs Temp 97.0 F 03/13/20 08:00 Pulse 108 H 03/13/20 08:00 Resp 22 H 03/13/20 12:03 BP 146/83 H 03/13/20 08:00 Pulse Ox 95 03/13/20 08:00 Body Mass Index 23.5 General patient resting in bed, no acute distress, appears frustrated due to continued use of oxygen, has non-rebreather mask. Neck is supple no JVD. CVS regular rate rhythm, Respiratory lungs coarse breath sound, mild tachypnea, no respiratory distress. Gastrointestinal abdomen soft, nontender, bowel sounds audible. Extremities no edema. Neuro nonfocal, speech clear. Skin no rash Objective Data Current Medications Generic Name Dose Route Start Last Admin Trade Name Freq PRN Reason Stop Dose Admin Acetaminophen 650 mg 03/05/20 16:50 03/12/20 23:15 Acetaminophen 325 Mg Tablet PO 650 mg RQ6H PRN Administration HEADACHES , Acetaminophen/Butalbital/Caffeine 1 tab 03/11/20 16:44 03/13/20 06:01 Butalb/Acetamin/Caff 50/325/40 Tablet PO 1 tab Q6H PRN Administration headache Alprazolam 0.125 mg 03/12/20 14:49 03/13/20 12:18 Alprazolam 0.25 Mg Tablet PO 0.125 mg BID PRN Administration anxiety Ascorbic Acid 500 mg 03/10/20 09:00 03/13/20 09:46 Ascorbic Acid 500 Mg Tablet PO 500 mg DAILY ACE Administration Aspirin 81 mg 03/06/20 09:00 03/13/20 09:46 Aspirin Enteric Coated 81 Mg Tablet. PO 81 mg DAILY ACE Administration Calcium Carbonate/Cholecalciferol 250 mg 03/05/20 21:00 03/13/20 09:45 Calcium + Vitamin D 250 Mg Tablet PO 250 mg BID ACE Administration Docusate Sodium 100 mg 03/05/20 17:25 Docusate Sodium 100 Mg Capsule PO BID PRN Constipation Enoxaparin Sodium 40 mg 03/09/20 10:15 03/13/20 09:45 Enoxaparin Sodium 40 Mg/0.4 Ml Syringe SUBCUT 40 mg Q12H ACE Administration Ferrous Sulfate 324 mg 03/05/20 21:00 03/13/20 09:46 Ferrous Sulfate 324 Mg Tablet.Dr PO 324 mg BID ACE Administration Fluticasone Propionate 2 spray 03/05/20 17:25 Fluticasone Propionate Nasal 16 Gm [place] NOSTRIL-B DAILY PRN Nasal Congestion Fluticasone Propionate 2 puff 03/05/20 20:00 03/13/20 08:15 Fluticasone Propionate 100 Mcg Blst.W.Dev INHALE 2 puff RBID ACE Administration Guaifenesin/Dextromethorphan 5 ml 03/10/20 17:45 03/13/20 12:18 Guaifenesin Dm 100/10/5 Ml 5 Ml Syrup PO 5 ml Q6H ACE Administration Ceftriaxone Sodium 1 gm/ 50 mls @ 100 mls/hr 03/08/20 07:00 03/13/20 06:39 Sodium Chloride IV Infused Q24H ACE Infusion Doxycycline Hyclate 100 mg/ 250 mls @ 166.67 mls/hr 03/09/20 10:00 03/13/20 11:36 Sodium Chloride IV Infused Q12H ACE Infusion Insulin Glargine 6 unit 03/12/20 21:00 03/12/20 20:09 Insulin Glargine,Hum.Rec.Anlog 100 Unit/Ml 10 Ml Vial SUBCUT 6 unit BEDTIME ACE Administration Insulin Human Lispro 0 unit 03/09/20 16:30 03/13/20 12:18 Insulin Lispro 100 Unit/Ml 3 Ml Vial SUBCUT 12 unit QIDACHS ACE Administration Protocol Melatonin 6 mg 03/06/20 21:00 Melatonin 3 Mg Tablet PO BEDTIME PRN Insomnia Methylprednisolone Sodium Succinate 40 mg 03/12/20 15:00 03/13/20 02:51 Methylprednisolone Sod Succ/Pf 125 Mg/2 Ml Vial IVPUSH 40 mg Q12H ACE Administration Metoprolol Tartrate 25 mg 03/05/20 21:00 03/13/20 09:46 Metoprolol Tartrate 25 Mg Tablet PO 25 mg BID ACE Administration Protocol Montelukast Sodium 10 mg 03/06/20 09:00 03/13/20 09:46 Montelukast Sodium 10 Mg Tablet PO 10 mg DAILY ACE Administration Omeprazole 20 mg 03/06/20 06:30 03/13/20 05:58 Omeprazole 20 Mg Capsule.Dr PO 20 mg DAILY@0630 ACE Administration Ondansetron HCl 4 mg 03/11/20 07:04 Ondansetron Hcl 4 Mg/2 Ml Vial IVPUSH Q6H PRN Nausea Pharmacy Consult 1 each 03/05/20 16:16 Consult Rx Perform Med Rec MISCELLANE ONCE PRN Consult order Pravastatin Sodium 10 mg 03/06/20 09:00 03/13/20 09:45 Pravastatin Sodium 10 Mg Tablet PO 10 mg DAILY [facility] Administration Sodium Bicarbonate 650 mg 03/10/20 21:00 03/13/20 09:45 Sodium Bicarbonate 650 Mg Tablet PO 650 mg BID [facility] Administration Sodium Chloride 3 ml 03/06/20 00:00 03/13/20 09:47 0.9 % Sodium Chloride Flush 3 Ml Syringe IVFLUSH 3 ml QSHIFT [facility]1983 Administration Tiotropium [place] 1 puff 03/13/20 08:00 03/13/20 08:16 Tiotropium [place] 18 Mcg Cap.W.Dev INHALE Not Given RDAILY [facility] Zinc Sulfate 220 mg 03/12/20 09:00 03/13/20 09:45 Zinc Sulfate 220 Mg Capsule PO 220 mg DAILY ACE Administration Labs CBC & Chem 7: 03/14/20 06:14 03/14/20 06:14 Microbiology Microbiology Results: Microbiology 03/08/20 06:39 Blood - Venous Blood Culture - Final No growth after 5 days. 03/08/20 06:39 Blood - Venous Blood Culture - Final No growth after 5 days. 03/06/20 19:07 Blood - Venous Blood Culture - Final No growth after 5 days. 03/06/20 19:07 Blood - Venous Blood Culture - Final No growth after 5 days. 03/05/20 13:44 Blood - Venous Blood Culture - Final No growth after 5 days. 03/05/20 13:29 Blood - Venous Blood Culture - Final No growth after 5 days. Assessment and Plan (1) Acute respiratory failure with hypoxia: Status: Acute (2) Metabolic acidosis: Status: Acute (3) Hyponatremia: Status: Acute (4) Pneumonia: Status: Acute (5) COVID-19: Status: Acute Assessment and Plan: Acute hypoxic respiratory failure secondary to COVID 19 infection/ pneumonia Persistent headache ,poor appetite, weakness and hypoxia, patient very irritable continue to remove the mask. V/Q scan negative, elevated D-dimer 802 Patient with persistent hypoxia stable in last 24 hours on non-rebreather mask and high-flow oxygen, finger oximetry around 92 continue IV Solumedrol 40 b.i.d., continue IV doxycycline day 07/18 and IV ceftriaxone day 08/18 and Lovenox twice daily SARs IgG antibodies came back negative due to persistent hypoxia patient receiveing convalescent plasma 2nd dose today , cont. Spiriva, encourage proning , frequent position change and IS, will follow clinical course closely patient is full code, ABGs showed stable pH and mixed acidosis. cont Fioricet for headache , continue protein shakes, will add low-dose Xanax prn for anxiety Metabolic acidosis patient seen by Nephrology bicarb improving, 19 today, cont. yvettea bicarb,follow BMP closely Acute kidney injury Resolved Diabetes Blood sugar in 200-300 range due to use of steroid dose of Insulin sliding scale adjusted, cont. Lantus and taper steroid Asthma On IV steroid, Continue Flovent, singular, and Spiriva hyponatremia resolved sodium 135 in the setting of SARS COV 2 and recent use of HCTZ ,now discontinued, being followed by Nephrology they recommended fluid restriction, urine sodium 41 and osmolality 654. DVT prophylaxis on Lovenox 0.5 milligram/kg due to elevated D-dimer
--- NOTE | 2020-03-13 15:50 | PM.PNNEP ---
Subjective Subjective Date of Service: 03/14/20 Interval history: Events noted Physical Exam Vital Signs: Vital Signs: Last Vital Signs Temp 98.5 F 03/13/20 15:34 Pulse 93 03/13/20 15:34 Resp 18 03/13/20 15:34 BP 144/90 H 03/13/20 15:34 Pulse Ox 90 L 03/13/20 15:34 Body Mass Index 23.5 Const: General: no acute distress HENMT: Head: Yes normocephalic and Yes atraumatic Neck: Neck: Yes supple Resp: Auscultation: diminished lung sounds Cardio: Heart sounds: S1 normal heart sound present and S2 normal heart sound present GI: Palpation (GI): Soft to palpation and nontender Extrem: General: No edema Objective Data Labs CBC & Chem 7: 03/14/20 06:14 03/14/20 06:14 Labs: Laboratory Results - last 24 hr 03/12/20 03/12/20 03/13/20 16:07 19:53 07:33 POC Glucose 231 H 238 H 219 H C-Reactive Protein 03/13/20 03/13/20 11:42 13:56 POC Glucose 364 H* C-Reactive Protein 2.40 H Microbiology Microbiology Results: Microbiology 03/08/20 06:39 Blood - Venous Blood Culture - Final No growth after 5 days. 03/08/20 06:39 Blood - Venous Blood Culture - Final No growth after 5 days. 03/06/20 19:07 Blood - Venous Blood Culture - Final No growth after 5 days. 03/06/20 19:07 Blood - Venous Blood Culture - Final No growth after 5 days. 03/05/20 13:44 Blood - Venous Blood Culture - Final No growth after 5 days. 03/05/20 13:29 Blood - Venous Blood Culture - Final No growth after 5 days. Assessment & Plan Assessment and plan (1) Hyponatremia: Problem details: Most likely due to HCTZ Na is slowly improving Off HCTZ Keep on free water restriction Status: Acute Time Spent With Patient Time: Total time spent is greater than 50% in coordination of care (as documented) at patient's floor/unit and/or counseling patient:
[2020-03-13 16:16] LABS: Glucose, Whole Blood 177 mg/dL (60-115)
[2020-03-13] MEDS: Butalb/Acetamin/Caff 50/325/40 TABLET 2 TAB PO (19:25)
[2020-03-13 20:12] LABS: Glucose, Whole Blood 138 mg/dL (60-115)
[2020-03-13] MEDS: Insulin Glargine,Hum.rec.anlog 100 UNIT/ML 10 ML VIAL 10 UNIT SUBCUT (20:37)
[2020-03-14] VITALS (15 sets, daily range): BP systolic 112–160; BP diastolic 72–90; PULSE 80–120; RESP 20–22; TEMP 36.4–37.2; O2SAT 90–100
--- NOTE | 2020-03-14 | XR_ITS ---
EXAMINATION: XR CHEST CLINICAL INFORMATION: Hypoxia. COMPARISON: 03/10/2020 and 03/09/2020 portable chest. TECHNIQUE: Frontal view of the chest was obtained. FINDINGS: Low lung volumes limit evaluation. Bilateral infiltrates are again seen with interval increase most pronounced at the right lung base. The heart and mediastinal structures are unremarkable. XR/XR chest 1V IMPRESSION: Interval worsening of bilateral infiltrates. This is nonspecific and could be cardiogenic however a worsening infectious/inflammatory process cannot be excluded. Correlate clinically.
[2020-03-14] MEDS: methylPREDNISolone Sod Succ/PF 125 MG/2 ML VIAL 40 MG IVPUSH ×2 (02:02→15:08)
[2020-03-14] MEDS: ALPRAZolam 0.25 MG TABLET 0.125 MG PO ×2 (02:58→08:02)
[2020-03-14] MEDS: Morphine Sulfate 4 MG/ML CARTRIDGE IVPUSH (03:58)
[2020-03-14] MEDS: ondansetron HCL 4 MG/2 ML VIAL IVPUSH (04:01)
[2020-03-14 07:12] LABS: Basophils Percent Auto 0.1 % (0-2); Hemoglobin 12.5 g/dl (14.0-18.0); Imm Gran Abs Auto 0.15 X10*3/uL (0.00-0.03); Imm Gran Pct Auto 1.1 % (0.0-0.4); Lymphocytes Absolute Auto 0.4 X10*3/uL (1.2-4.9); Lymphocytes Percent Auto 2.6 % (20-40); MANUAL DIFF FLAG SCAN; Mean Corpuscular HGB Conc 35.7 g/dl (31.0-36.0); Mean Corpuscular Hemoglobin 31.8 pg (27.0-33.0); Mean Corpuscular Volume 89.1 fL (80-98); Mean Platelet Volume 10.9 fL (9.4-12.4); Monocytes Absolute Auto 0.8 X10*3/uL (0.1-1.2); Monocytes Percent Auto 5.6 % (2-11); Neutrophils Absolute Auto 12.4 X10*3/uL (2.0-8.3); Neutrophils Percent Auto 90.6 % (45-73); Platelet Count 179 X10*3/uL (160-400); Red Blood Count 3.93 X10*6/uL (4.60-5.80); SCAN SMEAR FLAG 1; White Blood Count 13.7 X10*3/uL (4.8-10.8)
[2020-03-14 07:35] LABS: Anion Gap 15 (12-20); Blood Urea Nitrogen 34 mg/dL (9-16); Calcium 7.8 mg/dL (8.4-10.2); Carbon Dioxide 29 mmol/L (22-29); Chloride 98 mmol/L (96-108); Creatinine Clr Calc Pharmacy 64.4; Estimated Glomerular Filt Rate > 60; Glucose Random 125 mg/dL (60-115); Potassium 3.6 mmol/l (3.3-5.1); Sodium 138 mmol/L (135-145)
[2020-03-14] MEDS: Aspirin Enteric Coated 81 MG TABLET.DR PO (08:02)
[2020-03-14] MEDS: Montelukast Sodium 10 MG TABLET PO (08:02)
[2020-03-14] MEDS: Zinc Sulfate 220 MG CAPSULE PO (08:02)
[2020-03-14] MEDS: cefTRIAXone sodium 1 GM in 0.9 % Sodium Chloride 50 ML IV (08:02)
[2020-03-14] MEDS: Ferrous Sulfate 324 MG TABLET.DR PO ×2 (08:02→23:19)
[2020-03-14] MEDS: Pravastatin Sodium 10 MG TABLET PO (08:03)
[2020-03-14] MEDS: 0.9 % Sodium Chloride Flush 3 ML SYRINGE IVFLUSH ×3 (08:03→23:20)
[2020-03-14] MEDS: Omeprazole 20 MG CAPSULE.DR PO (08:03)
[2020-03-14] MEDS: Metoprolol Tartrate 25 MG TABLET PO ×2 (08:03→23:19)
[2020-03-14] MEDS: Calcium + Vitamin D 250 MG TABLET PO ×2 (08:03→23:19)
[2020-03-14] MEDS: Sodium Bicarbonate 650 MG TABLET PO (08:03)
[2020-03-14] MEDS: Ascorbic Acid 500 MG TABLET PO (08:03)
[2020-03-14] MEDS: Sodium Chloride 0.65 % Nasal 44 ML SPRBTL 1 SPRAY NOSTRIL-B (08:04)
[2020-03-14 08:45] LABS: SLIDE REVIEW VERIFIED
[2020-03-14] MEDS: Butalb/Acetamin/Caff 50/325/40 TABLET 2 TAB PO ×2 (09:14→19:37)
[2020-03-14] MEDS: Insulin Lispro 100 UNIT/ML 3 ML VIAL SUBCUT (09:43)
[2020-03-14] MEDS: Enoxaparin Sodium 40 MG/0.4 ML SYRINGE SUBCUT ×2 (10:08→23:18)
[2020-03-14] MEDS: Doxycycline Hyclate 100 MG in 0.9 % Sodium Chloride 250 ML 166.67 MG IV ×2 (10:08→23:18)
[2020-03-14 10:42] LABS: Glucose, Whole Blood 161 mg/dL (60-115)
[2020-03-14 11:19] LABS: Glucose, Whole Blood 120 mg/dL (60-115)
--- NOTE | 2020-03-14 14:22 | HO.PM.IMPN ---
Subjective Subjective Date of Service: 03/14/20 Interval History: Patient complaining of headache, nasal dryness and discomfort with continues use of oxygen , denies shortness of breath or chest pain, no change in oxygen requirement in last several days. Review of Systems Review of Systems General complaining of frontal headache, no fever,no chills, dry nose. CVS no chest pain, no palpitation. Respiratory dry cough, no shortness of breath. Gastrointestinal no nausea, no vomiting, no abdominal pain, poor appetite Physical Exam Vital Signs: Vital Signs: Last Vital Signs Temp 97.6 F 03/14/20 11:36 Pulse 110 H 03/14/20 11:36 Resp 22 H 03/14/20 11:36 BP 112/72 03/14/20 11:36 Pulse Ox 90 L 03/14/20 11:36 Body Mass Index 23.5 Const: Other: General patient resting in bed, no acute distress, non-rebreather mask in place. Neck is supple no JVD. CVS regular rate rhythm, Respiratory lungs clear to auscultation, diminished breath sounds, coarse breath sound bases, no respiratory distress. Gastrointestinal abdomen soft, nontender, bowel sounds audible. Extremities no edema. Neuro nonfocal, speech clear. Skin no rash Objective Data Current Medications Generic Name Dose Route Start Last Admin Trade Name Freq PRN Reason Stop Dose Admin Acetaminophen 650 mg 03/13/20 13:45 Acetaminophen 325 Mg Tablet PO Q12H PRN HEADACHES , Acetaminophen/Butalbital/Caffeine 2 tab 03/13/20 13:45 03/14/20 09:14 Butalb/Acetamin/Caff 50/325/40 Tablet PO 2 tab Q6H PRN Administration headache Alprazolam 0.125 mg 03/12/20 14:49 03/14/20 08:02 Alprazolam 0.25 Mg Tablet PO 0.125 mg BID PRN Administration anxiety Ascorbic Acid 500 mg 03/10/20 09:00 03/14/20 08:03 Ascorbic Acid 500 Mg Tablet PO 500 mg DAILY [facility] Administration Aspirin 81 mg 03/06/20 09:00 03/14/20 08:02 Aspirin Enteric Coated 81 Mg Tablet. PO 81 mg DAILY ACE Administration Calcium Carbonate/Cholecalciferol 250 mg 03/05/20 21:00 03/14/20 08:03 Calcium + Vitamin D 250 Mg Tablet PO 250 mg BID ACE Administration Docusate Sodium 100 mg 03/05/20 17:25 Docusate Sodium 100 Mg Capsule PO BID PRN Constipation Enoxaparin Sodium 40 mg 03/09/20 10:15 03/14/20 10:08 Enoxaparin Sodium 40 Mg/0.4 Ml Syringe SUBCUT 40 mg Q12H ACE Administration Ferrous Sulfate 324 mg 03/05/20 21:00 03/14/20 08:02 Ferrous Sulfate 324 Mg Tablet.Dr PO 324 mg BID ACE Administration Fluticasone Propionate 2 spray 03/05/20 17:25 Fluticasone Propionate Nasal 16 Gm [place] NOSTRIL-B DAILY PRN Nasal Congestion Fluticasone Propionate 2 puff 03/05/20 20:00 03/14/20 09:10 Fluticasone Propionate 100 Mcg Blst.W.Dev INHALE Not Given RBID ACE Guaifenesin/Dextromethorphan 5 ml 03/10/20 17:45 03/14/20 13:10 Guaifenesin Dm 100/10/5 Ml 5 Ml Syrup PO Not Given Q6H ACE Ceftriaxone Sodium 1 gm/ 50 mls @ 100 mls/hr 03/08/20 07:00 03/14/20 08:38 Sodium Chloride IV Infused Q24H ACE Infusion Doxycycline Hyclate 100 mg/ 250 mls @ 166.67 mls/hr 03/09/20 10:00 03/14/20 12:23 Sodium Chloride IV Infused Q12H ACE Infusion Insulin Glargine 10 unit 03/13/20 21:00 03/13/20 20:37 Insulin Glargine,Hum.Rec.Anlog 100 Unit/Ml 10 Ml Vial SUBCUT 10 unit BEDTIME ACE Administration Insulin Human Lispro 0 unit 03/09/20 16:30 03/14/20 13:10 Insulin Lispro 100 Unit/Ml 3 Ml Vial SUBCUT Not Given QIDACHS [facility] Protocol Melatonin 6 mg 03/06/20 21:00 Melatonin 3 Mg Tablet PO BEDTIME PRN Insomnia Methylprednisolone Sodium Succinate 40 mg 03/12/20 15:00 03/14/20 02:02 Methylprednisolone Sod Succ/Pf 125 Mg/2 Ml Vial IVPUSH 40 mg Q12H ACE Administration Metoprolol Tartrate 25 mg 03/05/20 21:00 03/14/20 08:03 Metoprolol Tartrate 25 Mg Tablet PO 25 mg BID [facility] Administration Protocol Montelukast Sodium 10 mg 03/06/20 09:00 03/14/20 08:02 Montelukast Sodium 10 Mg Tablet PO 10 mg DAILY [facility] Administration Omeprazole 20 mg 03/06/20 06:30 03/14/20 08:03 Omeprazole 20 Mg Capsule. PO 20 mg DAILY@0630 ACE Administration Ondansetron HCl 4 mg 03/11/20 07:04 03/14/20 04:01 Ondansetron Hcl 4 Mg/2 Ml Vial IVPUSH 4 mg Q6H PRN Administration Nausea Pharmacy Consult 1 each 03/05/20 16:16 Consult Rx Perform Med Rec MISCELLANE ONCE PRN Consult order Pravastatin Sodium 10 mg 03/06/20 09:00 03/14/20 08:03 Pravastatin Sodium 10 Mg Tablet PO 10 mg DAILY [facility] Administration Sodium Chloride 3 ml 03/06/20 00:00 03/14/20 08:03 0.9 % Sodium Chloride Flush 3 Ml Syringe IVFLUSH 3 ml QSHIFT [facility] Administration Sodium Chloride 1 spray 03/13/20 13:43 03/14/20 08:04 Sodium Chloride 0.65 % Nasal 44 Ml [place] NOSTRIL-B 1 spray Q1H PRN Administration Dry Nasal Passages Tiotropium [place] 1 puff 03/13/20 08:00 03/14/20 09:10 Tiotropium [place] 18 Mcg Cap.W.Dev INHALE Not Given RDAILY [facility] Zinc Sulfate 220 mg 03/12/20 09:00 03/14/20 08:02 Zinc Sulfate 220 Mg Capsule PO 220 mg DAILY ACE Administration Labs CBC & Chem 7: 03/14/20 06:14 03/14/20 06:14 Microbiology Microbiology Results: Microbiology 03/08/20 06:39 Blood - Venous Blood Culture - Final No growth after 5 days. 03/08/20 06:39 Blood - Venous Blood Culture - Final No growth after 5 days. 03/06/20 19:07 Blood - Venous Blood Culture - Final No growth after 5 days. 03/06/20 19:07 Blood - Venous Blood Culture - Final No growth after 5 days. 03/05/20 13:44 Blood - Venous Blood Culture - Final No growth after 5 days. 03/05/20 13:29 Blood - Venous Blood Culture - Final No growth after 5 days. Assessment and Plan (1) Acute respiratory failure with hypoxia: Status: Acute (2) Metabolic acidosis: Status: Acute (3) Hyponatremia: Status: Acute (4) Pneumonia: Status: Acute (5) COVID-19: Status: Acute Assessment and Plan: Acute hypoxic respiratory failure secondary to COVID 19 infection/ pneumonia Persistent headache ,poor appetite, weakness and hypoxia, patient continue to remove face mask. V/Q scan negative, elevated D-dimer 802 Patient with persistent hypoxia stable in last 24 hours on non-rebreather mask and high-flow oxygen, finger oximetry around 92, recommend out of bed to chair and wean oxygen to keep finger oximetry around 90 continue IV Solumedrol 40 b.i.d. and gradually wean, continue IV doxycycline day /8 and IV ceftriaxone day / and Lovenox twice daily SARs IgG antibodies came back negative due to persistent hypoxia stable ABGs status post convalescent plasma cont. Spiriva, encourage proning , frequent position change and IS, cont Fioricet for headache , continue protein shakes, xanax prn for anxiety Metabolic acidosis patient seen by Nephrology bicarb normalized will discontinue soda bicarb Acute kidney injury Resolved Diabetes Blood sugar improving, continue Insulin sliding scale , cont. Lantus Asthma No acute exacerbation On IV steroid, Continue Flovent, singular, and Spiriva hyponatremia resolved sodium 138 in the setting of SARS COV 2 and recent use of HCTZ ,now discontinued. DVT prophylaxis on Lovenox 0.5 milligram/kg due to elevated D-dimer
[2020-03-14 15:00] LABS: Glucose, Whole Blood 113 mg/dL (60-115)
[2020-03-14 16:17] LABS: Glucose, Whole Blood 74 mg/dL (60-115)
--- NOTE | 2020-03-14 18:02 | PC.NURSE ---
Patient had much better today. On high flow NC, tolerating well. Vitals stable. Poor appetite, although attempts to drink. Will conintue to monitor.
[2020-03-14 20:33] LABS: Glucose, Whole Blood 144 mg/dL (60-115)
[2020-03-15] VITALS (14 sets, daily range): BP systolic 115–155; BP diastolic 62–86; PULSE 75–115; RESP 17–24; TEMP 36.1–36.7; O2SAT 88–99
[2020-03-15] MEDS: Butalb/Acetamin/Caff 50/325/40 TABLET 2 TAB PO (02:31)
[2020-03-15] MEDS: methylPREDNISolone Sod Succ/PF 125 MG/2 ML VIAL 40 MG IVPUSH ×2 (02:32→14:32)
[2020-03-15] MEDS: cefTRIAXone sodium 1 GM in 0.9 % Sodium Chloride 50 ML IV (08:08)
[2020-03-15] MEDS: Pravastatin Sodium 10 MG TABLET PO (08:09)
[2020-03-15] MEDS: Aspirin Enteric Coated 81 MG TABLET.DR PO (08:09)
[2020-03-15] MEDS: Montelukast Sodium 10 MG TABLET PO (08:09)
[2020-03-15] MEDS: Calcium + Vitamin D 250 MG TABLET PO ×2 (08:09→20:47)
[2020-03-15] MEDS: Ascorbic Acid 500 MG TABLET PO (08:09)
[2020-03-15] MEDS: Metoprolol Tartrate 25 MG TABLET PO ×2 (08:09→20:48)
[2020-03-15] MEDS: Zinc Sulfate 220 MG CAPSULE PO (08:09)
[2020-03-15] MEDS: Ferrous Sulfate 324 MG TABLET.DR PO ×2 (08:09→20:47)
[2020-03-15] MEDS: 0.9 % Sodium Chloride Flush 3 ML SYRINGE IVFLUSH ×3 (08:10→20:47)
[2020-03-15 08:11] LABS: Glucose, Whole Blood 189 mg/dL (60-115)
[2020-03-15] MEDS: Doxycycline Hyclate 100 MG in 0.9 % Sodium Chloride 250 ML 125 MG IV (10:41)
[2020-03-15] MEDS: Enoxaparin Sodium 40 MG/0.4 ML SYRINGE SUBCUT ×2 (10:41→20:45)
[2020-03-15] MEDS: guaiFENesin DM 100/10/5 ML 5 ML SYRUP PO ×3 (10:41→23:03)
[2020-03-15 12:22] LABS: Glucose, Whole Blood 220 mg/dL (60-115)
[2020-03-15] MEDS: Insulin Lispro 100 UNIT/ML 3 ML VIAL SUBCUT ×2 (13:55→16:55)
[2020-03-15] MEDS: ALPRAZolam 0.25 MG TABLET 0.125 MG PO (14:33)
--- NOTE | 2020-03-15 15:26 | P.PNIM_ITS ---
Subjective Subjective Date of Service: 03/15/20 Interval History: Patient complaining of headache, nasal dryness and discomfort with continues use of oxygen , denies shortness of breath or chest pain, no change in oxygen requirement in last several days. Review of Systems Review of Systems General complaining of sore throat, headache, no fever,no chills, dry nose. CVS no chest pain, no palpitation. Respiratory dry cough, no shortness of breath. Gastrointestinal no nausea, no vomiting, no abdominal pain, poor appetite Physical Exam Vital Signs: Vital Signs: Last Vital Signs Temp 98.1 F 03/15/20 15:22 Pulse 110 H 03/15/20 15:22 Resp 20 03/15/20 15:24 BP 140/81 H 03/15/20 15:22 Pulse Ox 91 L 03/15/20 15:22 Body Mass Index 23.5 Const: Other: General patient resting in bed, no acute distress, non- rebreather mask in place. Neck is supple no JVD. CVS regular rate rhythm, Respiratory lungs clear to auscultation, diminished breath sounds, coarse breath sound bases, no respiratory distress. Gastrointestinal abdomen soft, nontender, bowel sounds audible. Extremities no edema. Neuro nonfocal, speech clear. Skin no rash Objective Data Current Medications Generic Name Dose Route Start Last Admin Trade Name Freq PRN Reason Stop Dose Admin Acetaminophen 650 mg 03/13/20 13:45 Acetaminophen 325 Mg Tablet PO Q12H PRN HEADACHES , Acetaminophen/Butalbital/Caffeine 2 tab 03/13/20 13:45 03/15/20 02:31 Butalb/Acetamin/Caff 50/325/40 Tablet PO 2 tab Q6H PRN Administration headache Alprazolam 0.125 mg 03/12/20 14:49 03/15/20 14:33 Alprazolam 0.25 Mg Tablet PO 0.125 mg BID PRN Administration anxiety Ascorbic Acid 500 mg 03/10/20 09:00 03/15/20 08:09 Ascorbic Acid 500 Mg Tablet PO 500 mg DAILY [facility] Administration Aspirin 81 mg 03/06/20 09:00 03/15/20 08:09 Aspirin Enteric Coated 81 Mg Tablet.Dr PO 81 mg DAILY [facility] Administration Benzocaine 1 lozenge 03/15/20 15:24 Throat Lozenge, Medicated Lozenge MUCOUS MEM Q2H PRN Sore Throat Calcium Carbonate/Cholecalciferol 250 mg 03/05/20 21:00 03/15/20 08:09 Calcium + Vitamin D 250 Mg Tablet PO 250 mg BID [facility] Administration Docusate Sodium 100 mg 03/05/20 17:25 Docusate Sodium 100 Mg Capsule PO BID PRN Constipation Enoxaparin Sodium 40 mg 03/09/20 10:15 03/15/20 10:41 Enoxaparin Sodium 40 Mg/0.4 Ml Syringe SUBCUT 40 mg Q12H [facility] Administration Ferrous Sulfate 324 mg 03/05/20 21:00 03/15/20 08:09 Ferrous Sulfate 324 Mg Tablet.Dr PO 324 mg BID [facility] Administration Fluticasone Propionate 2 spray 03/05/20 17:25 Fluticasone Propionate Nasal 16 Gm [place] NOSTRIL-B DAILY PRN Nasal Congestion Fluticasone Propionate 2 puff 03/05/20 20:00 03/15/20 07:21 Fluticasone Propionate 100 Mcg Blst.W.Dev INHALE Not Given RBID [facility] Guaifenesin/Dextromethorphan 5 ml 03/10/20 17:45 03/15/20 10:41 Guaifenesin Dm 100/10/5 Ml 5 Ml Syrup PO 5 ml Q6H [facility] Administration Ceftriaxone Sodium 1 gm/ 50 mls @ 100 mls/hr 03/08/20 07:00 03/15/20 09:22 Sodium Chloride IV Infused Q24H [facility] Infusion Doxycycline Hyclate 100 mg/ 250 mls @ 166.67 mls/hr 03/09/20 10:00 03/15/20 13:49 Sodium Chloride IV Infused Q12H [facility] Infusion Insulin Glargine 10 unit 03/13/20 21:00 03/14/20 23:19 Insulin Glargine,Hum.Rec.Anlog 100 Unit/Ml 10 Ml Vial SUBCUT Not Given BEDTIME [facility] Insulin Human Lispro 0 unit 03/09/20 16:30 03/15/20 13:55 Insulin Lispro 100 Unit/Ml 3 Ml Vial SUBCUT 4 unit QIDACHS [facility] Administration Protocol Melatonin 6 mg 03/06/20 21:00 Melatonin 3 Mg Tablet PO BEDTIME PRN Insomnia Methylprednisolone Sodium Succinate 40 mg 03/12/20 15:00 03/15/20 14:32 Methylprednisolone Sod Succ/Pf 125 Mg/2 Ml Vial IVPUSH 40 mg Q12H [facility] Administration Metoprolol Tartrate 25 mg 03/05/20 21:00 03/15/20 08:09 Metoprolol Tartrate 25 Mg Tablet PO 25 mg BID [facility] Administration Protocol Montelukast Sodium 10 mg 03/06/20 09:00 03/15/20 08:09 Montelukast Sodium 10 Mg Tablet PO 10 mg DAILY [facility] Administration Omeprazole 20 mg 03/06/20 06:30 03/14/20 08:03 Omeprazole 20 Mg Capsule. PO 20 mg DAILY@0630 [facility] Administration Ondansetron HCl 4 mg 03/11/20 07:04 03/14/20 04:01 Ondansetron Hcl 4 Mg/2 Ml Vial IVPUSH 4 mg Q6H PRN Administration Nausea Pharmacy Consult 1 each 03/05/20 16:16 Consult Rx Perform Med Rec MISCELLANE ONCE PRN Consult order Pravastatin Sodium 10 mg 03/06/20 09:00 03/15/20 08:09 Pravastatin Sodium 10 Mg Tablet PO 10 mg DAILY [facility] Administration Sodium Chloride 3 ml 03/06/20 00:00 03/15/20 08:10 0.9 % Sodium Chloride Flush 3 Ml Syringe IVFLUSH 3 ml QSHIFT [facility] Administration Sodium Chloride 1 spray 03/13/20 13:43 03/14/20 08:04 Sodium Chloride 0.65 % Nasal 44 Ml Sprbtl NOSTRIL-B 1 spray Q1H PRN Administration Dry Nasal Passages Tiotropium [place] 1 puff 03/13/20 08:00 03/15/20 07:22 Tiotropium [place] 18 Mcg Cap.W.Dev INHALE Not Given RDAILY [facility] Zinc Sulfate 220 mg 03/12/20 09:00 03/15/20 08:09 Zinc Sulfate 220 Mg Capsule PO 220 mg DAILY ACE Administration Labs CBC & Chem 7: 03/14/20 06:14 03/14/20 06:14 Microbiology Microbiology Results: Microbiology 03/08/20 06:39 Blood - Venous Blood Culture - Final No growth after 5 days. 03/08/20 06:39 Blood - Venous Blood Culture - Final No growth after 5 days. 03/06/20 19:07 Blood - Venous Blood Culture - Final No growth after 5 days. 03/06/20 19:07 Blood - Venous Blood Culture - Final No growth after 5 days. 03/05/20 13:44 Blood - Venous Blood Culture - Final No growth after 5 days. 03/05/20 13:29 Blood - Venous Blood Culture - Final No growth after 5 days. Assessment and Plan (1) Acute respiratory failure with hypoxia: Status: Acute (2) Metabolic acidosis: Status: Acute (3) Hyponatremia: Status: Acute (4) Pneumonia: Status: Acute (5) COVID-19: Status: Acute Assessment and Plan: Acute hypoxic respiratory failure secondary to COVID 19 infection/ pneumonia No change in clinical condition,intermittent headache ,poor appetite, weakness and hypoxia but less irritable, complaining of sore throat today V/Q scan negative, elevated D-dimer 802 Patient with persistent hypoxia stable in last 24 hours on flow oxygen, finger oximetry around 92, recommend out of bed to chair and wean oxygen to keep finger oximetry around 90 continue IV Solumedrol decrease to 40 daily today, IV doxycycline day 7/8 and IV ceftriaxone day 8 will dc after todays dose,cont. Lovenox twice daily SARs IgG antibodies came back negative stable ABGs status post convalescent plasma cont. Spiriva, encourage proning , frequent position change and IS, cont Fioricet for headache , continue protein shakes, xanax prn for anxiety Will add lozenges for throat pain and obtain speech therapy evaluation. Will repeat D-dimer LDH, BMP at am if D-dimer continue to rise will consider CTA chest Metabolic acidosis patient seen by Nephrology bicarb normalized / soda bicarb discontinue Acute kidney injury Resolved Diabetes Blood sugar improving, continue Insulin sliding scale , cont. Lantus Asthma No acute exacerbation On IV steroid, Continue Flovent, singular, and Spiriva hyponatremia resolved sodium 138 in the setting of SARS COV 2 and recent use of HCTZ ,now discontinued. DVT prophylaxis on Lovenox 0.5 milligram/kg due to elevated D-dimer
[2020-03-15 16:19] LABS: Glucose, Whole Blood 170 mg/dL (60-115)
[2020-03-15] MEDS: Fluticasone Propionate 100 MCG BLST.W.DEV 2 PUFF INHALE (20:15)
[2020-03-15 20:34] LABS: Glucose, Whole Blood 117 mg/dL (60-115)
[2020-03-15] MEDS: Doxycycline Hyclate 100 MG in 0.9 % Sodium Chloride 250 ML 166.67 MG IV (23:03)
[2020-03-16] VITALS (18 sets, daily range): BP systolic 131–176; BP diastolic 60–95; PULSE 73–140; RESP 18–22; TEMP 36.3–37.8; O2SAT 86–98
[2020-03-16] MEDS: guaiFENesin DM 100/10/5 ML 5 ML SYRUP PO ×3 (05:09→17:49)
[2020-03-16] MEDS: Omeprazole 20 MG CAPSULE.DR PO (05:09)
--- NOTE | 2020-03-16 06:26 | PC.NURSE ---
Pt maintaing spO2 90-94% on high flow nasal cannula 95% 40 L. Pt will occasionally pull of cannula and desat to low 80s. Pt states he is having congestion and cough. Scheduled nasal spray and cough syrup administered. Camera at bedside, high fall risk measures in place.
[2020-03-16 06:48] LABS: Basophils Percent Auto 0.1 % (0-2); Eosinophils Percent Auto 0.2 % (0-4); Hematocrit 39.5 % (42-52); Hemoglobin 13.6 g/dl (14.0-18.0); Imm Gran Abs Auto 0.16 X10*3/uL (0.00-0.03); Imm Gran Pct Auto 1.2 % (0.0-0.4); Lymphocytes Absolute Auto 0.4 X10*3/uL (1.2-4.9); Lymphocytes Percent Auto 3.2 % (20-40); MANUAL DIFF FLAG SCAN; Mean Corpuscular HGB Conc 34.4 g/dl (31.0-36.0); Mean Corpuscular Hemoglobin 31.7 pg (27.0-33.0); Mean Corpuscular Volume 92.1 fL (80-98); Mean Platelet Volume 11.7 fL (9.4-12.4); Monocytes Absolute Auto 0.5 X10*3/uL (0.1-1.2); Monocytes Percent Auto 3.5 % (2-11); Neutrophils Absolute Auto 12.7 X10*3/uL (2.0-8.3); Neutrophils Percent Auto 91.8 % (45-73); Platelet Count 169 X10*3/uL (160-400); Red Blood Count 4.29 X10*6/uL (4.60-5.80); Red Cell Distribution Width 12.4 % (11.0-16.0); SCAN SMEAR FLAG 1; White Blood Count 13.8 X10*3/uL (4.8-10.8)
[2020-03-16 07:09] LABS: D Dimer 417 NG/ML
[2020-03-16 07:24] LABS: Anion Gap 19 (12-20); Blood Urea Nitrogen 29 mg/dL (9-16); Calcium 7.9 mg/dL (8.4-10.2); Carbon Dioxide 23 mmol/L (22-29); Chloride 98 mmol/L (96-108); Creatinine Clr Calc Pharmacy 68.9; Estimated Glomerular Filt Rate > 60; Glucose Random 234 mg/dL (60-115); Potassium 4.2 mmol/l (3.3-5.1); Sodium 136 mmol/L (135-145)
[2020-03-16 08:09] LABS: SLIDE REVIEW VERIFIED
[2020-03-16] MEDS: Fluticasone Propionate 100 MCG BLST.W.DEV 2 PUFF INHALE (08:10)
[2020-03-16 08:23] LABS: Glucose, Whole Blood 234 mg/dL (60-115)
[2020-03-16] MEDS: Ferrous Sulfate 324 MG TABLET.DR PO (09:14)
[2020-03-16] MEDS: Aspirin Enteric Coated 81 MG TABLET.DR PO (09:14)
[2020-03-16] MEDS: Metoprolol Tartrate 25 MG TABLET PO ×2 (09:14→19:37)
[2020-03-16] MEDS: Montelukast Sodium 10 MG TABLET PO (09:15)
[2020-03-16] MEDS: Enoxaparin Sodium 40 MG/0.4 ML SYRINGE SUBCUT ×2 (09:15→22:09)
[2020-03-16] MEDS: Calcium + Vitamin D 250 MG TABLET PO (09:15)
[2020-03-16] MEDS: Ascorbic Acid 500 MG TABLET PO (09:15)
[2020-03-16] MEDS: Doxycycline Hyclate 100 MG in 0.9 % Sodium Chloride 250 ML 166 MG IV (09:15)
[2020-03-16] MEDS: Pravastatin Sodium 10 MG TABLET PO (09:15)
[2020-03-16] MEDS: 0.9 % Sodium Chloride Flush 3 ML SYRINGE IVFLUSH ×2 (09:17→16:53)
[2020-03-16] MEDS: Insulin Lispro 100 UNIT/ML 3 ML VIAL SUBCUT ×2 (09:17→12:34)
[2020-03-16] MEDS: ALPRAZolam 0.25 MG TABLET 0.125 MG PO (09:22)
[2020-03-16] MEDS: Zinc Sulfate 220 MG CAPSULE PO (10:53)
[2020-03-16 11:39] LABS: Glucose, Whole Blood 207 mg/dL (60-115)
--- NOTE | 2020-03-16 12:15 | MHC.CM.PN ---
MALE 85 Covid+. Pt lives alone with assist from [employer]OUSING [employer]NA[employer]. DP home with resumption of [employer] services thru [employer]. Pt will need transportation set up @[facility]. CM will follow.
--- NOTE | 2020-03-16 13:12 | P.PNIM_ITS ---
Subjective Subjective Date of Service: 03/16/20 Interval History: weak, no appetite Cardiovascular Cardiovascular: Reports no additional cardiovascular complaints Gastrointestinal Gastrointestinal: Reports no additional gastrointestinal complaints Physical Exam Vital Signs: Vital Signs: Last Vital Signs Temp 97.8 F 03/16/20 08:22 Pulse 111 H 03/16/20 08:22 Resp 18 03/16/20 11:36 BP 147/85 H 03/16/20 08:22 Pulse Ox 92 03/16/20 08:22 Body Mass Index 23.5 General: AO X 3, ill appearing Resp: decreased CVS: S1,S2,RRR GI: soft, non tender, non distended Neuro: motor grossly intact Psych: appropriate affect Objective Data Current Medications Generic Name Dose Route Start Last Admin Trade Name Freq PRN Reason Stop Dose Admin Acetaminophen 650 mg 03/13/20 13:45 Acetaminophen 325 Mg Tablet PO Q12H PRN HEADACHES , Acetaminophen/Butalbital/Caffeine 2 tab 03/13/20 13:45 03/15/20 02:31 Butalb/Acetamin/Caff 50/325/40 Tablet PO 2 tab Q6H PRN Administration headache Alprazolam 0.125 mg 03/12/20 14:49 03/16/20 09:22 Alprazolam 0.25 Mg Tablet PO 0.125 mg BID PRN Administration anxiety Ascorbic Acid 500 mg 03/10/20 09:00 03/16/20 09:15 Ascorbic Acid 500 Mg Tablet PO 500 mg DAILY [facility] Administration Aspirin 81 mg 03/06/20 09:00 03/16/20 09:14 Aspirin Enteric Coated 81 Mg Tablet.Dr PO 81 mg DAILY [facility] Administration Benzocaine 1 lozenge 03/15/20 15:24 Throat Lozenge, Medicated Lozenge MUCOUS MEM Q2H PRN Sore Throat Calcium Carbonate/Cholecalciferol 250 mg 03/05/20 21:00 03/16/20 09:15 Calcium + Vitamin D 250 Mg Tablet PO 250 mg BID [facility] Administration Docusate Sodium 100 mg 03/05/20 17:25 Docusate Sodium 100 Mg Capsule PO BID PRN Constipation Enoxaparin Sodium 40 mg 03/09/20 10:15 03/16/20 09:15 Enoxaparin Sodium 40 Mg/0.4 Ml Syringe SUBCUT 40 mg Q12H ACE Administration Ferrous Sulfate 324 mg 03/05/20 21:00 03/16/20 09:14 Ferrous Sulfate 324 Mg Tablet. PO 324 mg BID [facility] Administration Fluticasone Propionate 2 spray 03/05/20 17:25 Fluticasone Propionate Nasal 16 Gm [place] NOSTRIL-B DAILY PRN Nasal Congestion Fluticasone Propionate 2 puff 03/05/20 20:00 03/16/20 08:10 Fluticasone Propionate 100 Mcg Blst.W.Dev INHALE 2 puff RBID [facility] Administration Guaifenesin/Dextromethorphan 5 ml 03/10/20 17:45 03/16/20 10:53 Guaifenesin Dm 100/10/5 Ml 5 Ml Syrup PO 5 ml Q6H [facility] Administration Insulin Glargine 10 unit 03/13/20 21:00 03/15/20 20:47 Insulin Glargine,Hum.Rec.Anlog 100 Unit/Ml 10 Ml Vial SUBCUT Not Given BEDTIME [facility] Insulin Human Lispro 0 unit 03/09/20 16:30 03/16/20 12:34 Insulin Lispro 100 Unit/Ml 3 Ml Vial SUBCUT 6 unit QIDACHS [facility] Administration Protocol Melatonin 6 mg 03/06/20 21:00 Melatonin 3 Mg Tablet PO BEDTIME PRN Insomnia Methylprednisolone Sodium Succinate 40 mg 03/16/20 09:00 03/16/20 09:13 Methylprednisolone Sod Succ/Pf 40 Mg/Ml Vial IVPUSH 40 mg DAILY [facility] Administration Metoprolol Tartrate 25 mg 03/05/20 21:00 03/16/20 09:14 Metoprolol Tartrate 25 Mg Tablet PO 25 mg BID [facility] Administration Protocol Montelukast Sodium 10 mg 03/06/20 09:00 03/16/20 09:15 Montelukast Sodium 10 Mg Tablet PO 10 mg DAILY [facility] Administration Omeprazole 20 mg 03/06/20 06:30 03/16/20 05:09 Omeprazole 20 Mg Capsule. PO 20 mg DAILY@0630 [facility] Administration Ondansetron HCl 4 mg 03/11/20 07:04 03/14/20 04:01 Ondansetron Hcl 4 Mg/2 Ml Vial IVPUSH 4 mg Q6H PRN Administration Nausea Pharmacy Consult 1 each 03/05/20 16:16 Consult Rx Perform Med Rec MISCELLANE ONCE PRN Consult order Pravastatin Sodium 10 mg 03/06/20 09:00 03/16/20 09:15 Pravastatin Sodium 10 Mg Tablet PO 10 mg DAILY [facility] Administration Sodium Chloride 3 ml 03/06/20 00:00 03/16/20 09:17 0.9 % Sodium Chloride Flush 3 Ml Syringe IVFLUSH 3 ml QSHIFT [facility] Administration Sodium Chloride 1 spray 03/13/20 13:43 03/14/20 08:04 Sodium Chloride 0.65 % Nasal 44 Ml Sprbtl NOSTRIL-B 1 spray Q1H PRN Administration Dry Nasal Passages Tiotropium [place] 1 puff 03/13/20 08:00 03/16/20 08:19 Tiotropium [place] 18 Mcg Cap.W.Dev INHALE Not Given RDAILY [facility] Zinc Sulfate 220 mg 03/12/20 09:00 03/16/20 10:53 Zinc Sulfate 220 Mg Capsule PO 220 mg DAILY [facility] Administration Labs CBC & Chem 7: 03/16/20 06:07 03/16/20 06:07 Microbiology Microbiology Results: Microbiology 03/08/20 06:39 Blood - Venous Blood Culture - Final No growth after 5 days. 03/08/20 06:39 Blood - Venous Blood Culture - Final No growth after 5 days. 03/06/20 19:07 Blood - Venous Blood Culture - Final No growth after 5 days. 03/06/20 19:07 Blood - Venous Blood Culture - Final No growth after 5 days. 03/05/20 13:44 Blood - Venous Blood Culture - Final No growth after 5 days. 03/05/20 13:29 Blood - Venous Blood Culture - Final No growth after 5 days. Assessment and Plan (1) Acute respiratory failure with hypoxia: Status: Acute (2) Metabolic acidosis: Status: Acute (3) Hyponatremia: Status: Acute (4) Pneumonia: Status: Acute (5) COVID-19: Status: Acute Assessment and Plan: 85M presented with lethargy, sob Acute hypoxic respiratory failure secondary to COVID pneumonia Continues to require high levels of O2 Continue steroids Completed course of antibiotics Continue intermediate dose Lovenox Status post convalescent plasma Acute kidney injury Resolved Diabetes insulin Asthma No acute exacerbation On IV steroid, Continue Flovent, singular, and Spiriva hyponatremia resolved
[2020-03-16 16:51] LABS: Glucose, Whole Blood 136 mg/dL (60-115)
[2020-03-16] MEDS: Acetaminophen 325 MG TABLET 650 MG PO (19:27)
[2020-03-16 20:49] LABS: Glucose, Whole Blood 174 mg/dL (60-115)
--- NOTE | 2020-03-16 21:54 | PC.NURSE ---
upon initial assessment, pt shivering, rectal temp 100.1, heart rate 140's, 02 sat 84-86% high flow at 80%. Tylenol, PO metoprolol given RT at bedside, increased high flow to 95% and 55L. made aware, no new orders at thist time, PT visibly more comfortable in bed at this time, HR 90's-100s, 02 92%. will continue to monitor
[2020-03-17] VITALS (14 sets, daily range): BP systolic 131–160; BP diastolic 55–99; PULSE 87–138; RESP 18–22; TEMP 36.2–38.6; O2SAT 91–97; BMI 21.3
[2020-03-17] MEDS: 0.9 % Sodium Chloride Flush 3 ML SYRINGE IVFLUSH ×4 (01:12→23:55)
[2020-03-17] MEDS: ALPRAZolam 0.25 MG TABLET 0.125 MG PO (03:37)
[2020-03-17] MEDS: guaiFENesin DM 100/10/5 ML 5 ML SYRUP PO ×4 (03:42→23:43)
[2020-03-17] MEDS: Acetaminophen 325 MG TABLET 650 MG PO ×2 (03:44→23:40)
[2020-03-17 07:18] LABS: Basophils Percent Auto 0.1 % (0-2); Eosinophils Percent Auto 0.2 % (0-4); Hematocrit 37.3 % (42-52); Hemoglobin 12.7 g/dl (14.0-18.0); Imm Gran Abs Auto 0.18 X10*3/uL (0.00-0.03); Imm Gran Pct Auto 1.1 % (0.0-0.4); Lymphocytes Absolute Auto 0.5 X10*3/uL (1.2-4.9); Lymphocytes Percent Auto 2.8 % (20-40); MANUAL DIFF FLAG SCAN; Mean Corpuscular Hemoglobin 31.8 pg (27.0-33.0); Mean Corpuscular Volume 93.3 fL (80-98); Mean Platelet Volume 11.7 fL (9.4-12.4); Monocytes Absolute Auto 0.5 X10*3/uL (0.1-1.2); Neutrophils Percent Auto 92.8 % (45-73); Platelet Count 165 X10*3/uL (160-400); Red Cell Distribution Width 12.5 % (11.0-16.0); SCAN SMEAR FLAG 1; White Blood Count 16.2 X10*3/uL (4.8-10.8)
[2020-03-17 07:32] LABS: Glucose, Whole Blood 201 mg/dL (60-115)
[2020-03-17 07:46] LABS: Anion Gap 18 (12-20); Blood Urea Nitrogen 31 mg/dL (9-16); Calcium 7.6 mg/dL (8.4-10.2); Carbon Dioxide 24 mmol/L (22-29); Chloride 98 mmol/L (96-108); Estimated Glomerular Filt Rate > 60; Glucose Fasting 207 mg/dL (60-99); Potassium 4.1 mmol/l (3.3-5.1); Sodium 136 mmol/L (135-145)
[2020-03-17] MEDS: Insulin Lispro 100 UNIT/ML 3 ML VIAL SUBCUT ×3 (07:53→17:02)
[2020-03-17] MEDS: Calcium + Vitamin D 250 MG TABLET PO ×2 (07:55→21:27)
[2020-03-17] MEDS: Ascorbic Acid 500 MG TABLET PO (07:55)
[2020-03-17] MEDS: Pravastatin Sodium 10 MG TABLET PO (07:55)
[2020-03-17] MEDS: Aspirin Enteric Coated 81 MG TABLET.DR PO (07:55)
[2020-03-17] MEDS: Zinc Sulfate 220 MG CAPSULE PO (07:55)
[2020-03-17] MEDS: Montelukast Sodium 10 MG TABLET PO (07:55)
[2020-03-17] MEDS: Metoprolol Tartrate 25 MG TABLET PO ×2 (07:55→21:36)
[2020-03-17 08:27] LABS: SLIDE REVIEW VERIFIED
[2020-03-17] MEDS: Enoxaparin Sodium 40 MG/0.4 ML SYRINGE SUBCUT ×2 (11:12→21:29)
--- NOTE | 2020-03-17 11:12 | HO.PM.IMPN ---
Subjective Subjective Date of Service: 03/17/20 Interval History: a little better today Cardiovascular Cardiovascular: Reports no additional cardiovascular complaints Gastrointestinal Gastrointestinal: Reports no additional gastrointestinal complaints Physical Exam Vital Signs: Vital Signs: Last Vital Signs Temp 97.1 F 03/17/20 07:29 Pulse 108 H 03/17/20 07:55 Resp 22 H 03/17/20 07:29 BP 150/89 H 03/17/20 07:55 Pulse Ox 97 03/17/20 07:29 Body Mass Index 23.5 General: AO X 3, sob Resp: diminished CVS: S1,S2,RRR GI: soft, non tender, non distended Neuro: motor grossly intact Psych: appropriate affect Objective Data Current Medications Generic Name Dose Route Start Last Admin Trade Name Freq PRN Reason Stop Dose Admin Acetaminophen 650 mg 03/13/20 13:45 03/17/20 03:44 Acetaminophen 325 Mg Tablet PO 650 mg Q12H PRN Administration HEADACHES , Acetaminophen/Butalbital/Caffeine 2 tab 03/13/20 13:45 03/15/20 02:31 Butalb/Acetamin/Caff 50/325/40 Tablet PO 2 tab Q6H PRN Administration headache Alprazolam 0.125 mg 03/12/20 14:49 03/17/20 03:37 Alprazolam 0.25 Mg Tablet PO 0.125 mg BID PRN Administration anxiety Ascorbic Acid 500 mg 03/10/20 09:00 03/17/20 07:55 Ascorbic Acid 500 Mg Tablet PO 500 mg DAILY [facility] Administration Aspirin 81 mg 03/06/20 09:00 03/17/20 07:55 Aspirin Enteric Coated 81 Mg Tablet. PO 81 mg DAILY [facility] Administration Benzocaine 1 lozenge 03/15/20 15:24 Throat Lozenge, Medicated Lozenge MUCOUS MEM Q2H PRN Sore Throat Calcium Carbonate/Cholecalciferol 250 mg 03/05/20 21:00 03/17/20 07:55 Calcium + Vitamin D 250 Mg Tablet PO 250 mg BID [facility] Administration Docusate Sodium 100 mg 03/05/20 17:25 Docusate Sodium 100 Mg Capsule PO BID PRN Constipation Enoxaparin Sodium 40 mg 03/09/20 10:15 03/16/20 22:09 Enoxaparin Sodium 40 Mg/0.4 Ml Syringe SUBCUT 40 mg Q12H [facility] Administration Ferrous Sulfate 324 mg 03/05/20 21:00 03/17/20 08:15 Ferrous Sulfate 324 Mg Tablet. PO Not Given BID [facility] Fluticasone Propionate 2 spray 03/05/20 17:25 Fluticasone Propionate Nasal 16 Gm [place] NOSTRIL-B DAILY PRN Nasal Congestion Fluticasone Propionate 2 puff 03/05/20 20:00 03/17/20 07:38 Fluticasone Propionate 100 Mcg Blst.W.Dev INHALE Not Given RBID [facility] Guaifenesin/Dextromethorphan 5 ml 03/10/20 17:45 03/17/20 03:42 Guaifenesin Dm 100/10/5 Ml 5 Ml Syrup PO 5 ml Q6H [facility] Administration Insulin Glargine 10 unit 03/13/20 21:00 03/16/20 22:14 Insulin Glargine,Hum.Rec.Anlog 100 Unit/Ml 10 Ml Vial SUBCUT Not Given BEDTIME [facility] Insulin Human Lispro 0 unit 03/09/20 16:30 03/17/20 07:53 Insulin Lispro 100 Unit/Ml 3 Ml Vial SUBCUT 6 unit QIDACHS [facility] Administration Protocol Melatonin 6 mg 03/06/20 21:00 Melatonin 3 Mg Tablet PO BEDTIME PRN Insomnia Methylprednisolone Sodium Succinate 40 mg 03/16/20 09:00 03/17/20 07:55 Methylprednisolone Sod Succ/Pf 40 Mg/Ml Vial IVPUSH 40 mg DAILY [facility] Administration Metoprolol Tartrate 25 mg 03/05/20 21:00 03/17/20 07:55 Metoprolol Tartrate 25 Mg Tablet PO 25 mg BID [facility] Administration Protocol Montelukast Sodium 10 mg 03/06/20 09:00 03/17/20 07:55 Montelukast Sodium 10 Mg Tablet PO 10 mg DAILY [facility] Administration Omeprazole 20 mg 03/06/20 06:30 03/17/20 05:34 Omeprazole 20 Mg Capsule. PO Not Given DAILY@0630 [facility] Ondansetron HCl 4 mg 03/11/20 07:04 03/14/20 04:01 Ondansetron Hcl 4 Mg/2 Ml Vial IVPUSH 4 mg Q6H PRN Administration Nausea Pharmacy Consult 1 each 03/05/20 16:16 Consult Rx Perform Med Rec MISCELLANE ONCE PRN Consult order Pravastatin Sodium 10 mg 03/06/20 09:00 03/17/20 07:55 Pravastatin Sodium 10 Mg Tablet PO 10 mg DAILY [facility] Administration Sodium Chloride 3 ml 03/06/20 00:00 03/17/20 07:54 0.9 % Sodium Chloride Flush 3 Ml Syringe IVFLUSH 3 ml QSHIFT [facility] Administration Sodium Chloride 1 spray 03/13/20 13:43 03/14/20 08:04 Sodium Chloride 0.65 % Nasal 44 Ml Sprbtl NOSTRIL-B 1 spray Q1H PRN Administration Dry Nasal Passages Tiotropium [place] 1 puff 03/13/20 08:00 03/17/20 07:40 Tiotropium [place] 18 Mcg Cap.W.Dev INHALE Not Given RDAILY [facility] Zinc Sulfate 220 mg 03/12/20 09:00 03/17/20 07:55 Zinc Sulfate 220 Mg Capsule PO 220 mg DAILY [facility] Administration Labs CBC & Chem 7: 03/17/20 06:29 03/17/20 06:29 Microbiology Microbiology Results: Microbiology 03/08/20 06:39 Blood - Venous Blood Culture - Final No growth after 5 days. 03/08/20 06:39 Blood - Venous Blood Culture - Final No growth after 5 days. 03/06/20 19:07 Blood - Venous Blood Culture - Final No growth after 5 days. 03/06/20 19:07 Blood - Venous Blood Culture - Final No growth after 5 days. 03/05/20 13:44 Blood - Venous Blood Culture - Final No growth after 5 days. 03/05/20 13:29 Blood - Venous Blood Culture - Final No growth after 5 days. Assessment and Plan (1) Acute respiratory failure with hypoxia: Status: Acute (2) Metabolic acidosis: Status: Acute (3) Hyponatremia: Status: Acute (4) Pneumonia: Status: Acute (5) COVID-19: Status: Acute Assessment and Plan: 85M presented with lethargy, sob Acute hypoxic respiratory failure secondary to COVID pneumonia Continues to require high levels of O2, although looks a little better today, continue to wean as tolerated Continue steroids Completed course of antibiotics Continue intermediate dose Lovenox Status post convalescent plasma Acute kidney injury Resolved Diabetes insulin Asthma On IV steroid, Continue Flovent, singular, and Spiriva hyponatremia resolved
[2020-03-17 11:25] LABS: Glucose, Whole Blood 202 mg/dL (60-115)
[2020-03-17 16:43] LABS: Glucose, Whole Blood 152 mg/dL (60-115)
[2020-03-17] MEDS: Fluticasone Propionate 100 MCG BLST.W.DEV 2 PUFF INHALE (20:01)
[2020-03-17 20:42] LABS: Glucose, Whole Blood 135 mg/dL (60-115)
[2020-03-17] MEDS: Ferrous Sulfate 324 MG TABLET.DR PO (21:27)
[2020-03-17] MEDS: ondansetron HCL 4 MG/2 ML VIAL IVPUSH (23:43)
[2020-03-18] VITALS (14 sets, daily range): BP systolic 105–167; BP diastolic 59–91; PULSE 101–128; RESP 18–20; TEMP 36–36.8; O2SAT 89–97
[2020-03-18] MEDS: Omeprazole 20 MG CAPSULE.DR PO (06:00)
[2020-03-18] MEDS: guaiFENesin DM 100/10/5 ML 5 ML SYRUP PO ×4 (06:00→23:32)
[2020-03-18 07:49] LABS: Glucose, Whole Blood 280 mg/dL (60-115)
[2020-03-18] MEDS: Insulin Lispro 100 UNIT/ML 3 ML VIAL SUBCUT ×2 (08:50→11:46)
[2020-03-18] MEDS: Ferrous Sulfate 324 MG TABLET.DR PO ×2 (08:51→20:51)
[2020-03-18] MEDS: Enoxaparin Sodium 40 MG/0.4 ML SYRINGE SUBCUT ×2 (08:51→22:29)
[2020-03-18] MEDS: 0.9 % Sodium Chloride Flush 3 ML SYRINGE IVFLUSH ×2 (08:51→16:10)
[2020-03-18] MEDS: Aspirin Enteric Coated 81 MG TABLET.DR PO (08:51)
[2020-03-18] MEDS: Metoprolol Tartrate 25 MG TABLET PO ×2 (08:52→20:51)
[2020-03-18] MEDS: Montelukast Sodium 10 MG TABLET PO (08:52)
[2020-03-18] MEDS: Ascorbic Acid 500 MG TABLET PO (08:52)
[2020-03-18] MEDS: Zinc Sulfate 220 MG CAPSULE PO (08:52)
[2020-03-18] MEDS: Pravastatin Sodium 10 MG TABLET PO (08:52)
[2020-03-18] MEDS: Calcium + Vitamin D 250 MG TABLET PO ×2 (08:52→20:51)
--- NOTE | 2020-03-18 11:52 | P.PNIM_ITS ---
Subjective Subjective Date of Service: 03/18/20 Interval History: improving Cardiovascular Cardiovascular: Reports no additional cardiovascular complaints Gastrointestinal Gastrointestinal: Reports no additional gastrointestinal complaints Physical Exam Vital Signs: Vital Signs: Last Vital Signs Temp 97.6 F 03/18/20 08:00 Pulse 128 H 03/18/20 08:00 Resp 20 03/18/20 11:19 BP 137/75 03/18/20 08:00 Pulse Ox 92 03/18/20 08:00 Body Mass Index 21.3 General: AO X 3, no acute distress Resp: CTA bilateral CVS: S1,S2,RRR GI: soft, non tender, non distended Neuro: motor grossly intact Psych: appropriate affect Objective Data Current Medications Generic Name Dose Route Start Last Admin Trade Name Freq PRN Reason Stop Dose Admin Acetaminophen 650 mg 03/13/20 13:45 03/17/20 23:40 Acetaminophen 325 Mg Tablet PO 650 mg Q12H PRN Administration HEADACHES , Acetaminophen/Butalbital/Caffeine 2 tab 03/13/20 13:45 03/15/20 02:31 Butalb/Acetamin/Caff 50/325/40 Tablet PO 2 tab Q6H PRN Administration headache Ascorbic Acid 500 mg 03/10/20 09:00 03/18/20 08:52 Ascorbic Acid 500 Mg Tablet PO 500 mg DAILY [facility] Administration Aspirin 81 mg 03/06/20 09:00 03/18/20 08:51 Aspirin Enteric Coated 81 Mg Tablet. PO 81 mg DAILY [facility] Administration Benzocaine 1 lozenge 03/15/20 15:24 Throat Lozenge, Medicated Lozenge MUCOUS MEM Q2H PRN Sore Throat Calcium Carbonate/Cholecalciferol 250 mg 03/05/20 21:00 03/18/20 08:52 Calcium + Vitamin D 250 Mg Tablet PO 250 mg BID [facility] Administration Docusate Sodium 100 mg 03/05/20 17:25 Docusate Sodium 100 Mg Capsule PO BID PRN Constipation Enoxaparin Sodium 40 mg 03/09/20 10:15 03/18/20 08:51 Enoxaparin Sodium 40 Mg/0.4 Ml Syringe SUBCUT 40 mg Q12H [facility] Administration Ferrous Sulfate 324 mg 03/05/20 21:00 03/18/20 08:51 Ferrous Sulfate 324 Mg Tablet. PO 324 mg BID [facility] Administration Fluticasone Propionate 2 spray 03/05/20 17:25 Fluticasone Propionate Nasal 16 Gm [place] NOSTRIL-B DAILY PRN Nasal Congestion Fluticasone Propionate 2 puff 03/05/20 20:00 03/18/20 07:50 Fluticasone Propionate 100 Mcg Blst.W.Dev INHALE Not Given RBID [facility] Guaifenesin/Dextromethorphan 5 ml 03/10/20 17:45 03/18/20 11:41 Guaifenesin Dm 100/10/5 Ml 5 Ml Syrup PO 5 ml Q6H [facility] Administration Insulin Glargine 10 unit 03/13/20 21:00 03/17/20 21:51 Insulin Glargine,Hum.Rec.Anlog 100 Unit/Ml 10 Ml Vial SUBCUT Not Given BEDTIME [facility] Insulin Human Lispro 0 unit 03/09/20 16:30 03/18/20 11:46 Insulin Lispro 100 Unit/Ml 3 Ml Vial SUBCUT 6 unit QIDACHS [facility] Administration Protocol Melatonin 6 mg 03/06/20 21:00 Melatonin 3 Mg Tablet PO BEDTIME PRN Insomnia Methylprednisolone Sodium Succinate 40 mg 03/16/20 09:00 03/18/20 08:52 Methylprednisolone Sod Succ/Pf 40 Mg/Ml Vial IVPUSH 40 mg DAILY [facility] Administration Metoprolol Tartrate 25 mg 03/05/20 21:00 03/18/20 08:52 Metoprolol Tartrate 25 Mg Tablet PO 25 mg BID [facility] Administration Protocol Montelukast Sodium 10 mg 03/06/20 09:00 03/18/20 08:52 Montelukast Sodium 10 Mg Tablet PO 10 mg DAILY [facility] Administration Omeprazole 20 mg 03/06/20 06:30 03/18/20 06:00 Omeprazole 20 Mg Capsule.Dr PO 20 mg DAILY@0630 [facility] Administration Ondansetron HCl 4 mg 03/11/20 07:04 03/17/20 23:43 Ondansetron Hcl 4 Mg/2 Ml Vial IVPUSH 4 mg Q6H PRN Administration Nausea Pharmacy Consult 1 each 03/05/20 16:16 Consult Rx Perform Med Rec MISCELLANE ONCE PRN Consult order Pravastatin Sodium 10 mg 03/06/20 09:00 03/18/20 08:52 Pravastatin Sodium 10 Mg Tablet PO 10 mg DAILY [facility] Administration Sodium Chloride 3 ml 03/06/20 00:00 03/18/20 08:51 0.9 % Sodium Chloride Flush 3 Ml Syringe IVFLUSH 3 ml QSHIFT [facility] Administration Sodium Chloride 1 spray 03/13/20 13:43 03/14/20 08:04 Sodium Chloride 0.65 % Nasal 44 Ml Sprbtl NOSTRIL-B 1 spray Q1H PRN Administration Dry Nasal Passages Tiotropium [place] 1 puff 03/13/20 08:00 03/18/20 07:52 Tiotropium [place] 18 Mcg Cap.W.Dev INHALE Not Given RDAILY [facility] Zinc Sulfate 220 mg 03/12/20 09:00 03/18/20 08:52 Zinc Sulfate 220 Mg Capsule PO 220 mg DAILY [facility] Administration Labs CBC & Chem 7: 03/17/20 06:29 03/17/20 06:29 Microbiology Microbiology Results: Microbiology 03/08/20 06:39 Blood - Venous Blood Culture - Final No growth after 5 days. 03/08/20 06:39 Blood - Venous Blood Culture - Final No growth after 5 days. 03/06/20 19:07 Blood - Venous Blood Culture - Final No growth after 5 days. 03/06/20 19:07 Blood - Venous Blood Culture - Final No growth after 5 days. 03/05/20 13:44 Blood - Venous Blood Culture - Final No growth after 5 days. 03/05/20 13:29 Blood - Venous Blood Culture - Final No growth after 5 days. Assessment and Plan (1) Acute respiratory failure with hypoxia: Status: Acute (2) Metabolic acidosis: Status: Acute (3) Hyponatremia: Status: Acute (4) Pneumonia: Status: Acute (5) COVID-19: Status: Acute Assessment and Plan: 85M presented with lethargy, sob Acute hypoxic respiratory failure secondary to COVID pneumonia better today, wean as tolerated Continue steroids Completed course of antibiotics Continue intermediate dose Lovenox Status post convalescent plasma Acute kidney injury Resolved Diabetes insulin Asthma On IV steroid, Continue Flovent, singular, and Spiriva hyponatremia resolved
[2020-03-18 11:59] LABS: Glucose, Whole Blood 202 mg/dL (60-115)
--- NOTE | 2020-03-18 14:49 | MHC.CM.PN ---
Male 85 Covid+ DP Home with resumption of services [facility]. There is not a HCP documented. The Family has not been able to locate a copy.
--- NOTE | 2020-03-18 14:52 | PC.NURSE ---
OOB with 2 assist. Very weak. very SOB with slight exertion. Non rebreather off. Has High Flow. 02 90% Appetite poor. taking only sips of fluid with assist. Swallow reflex slow,
--- NOTE | 2020-03-18 15:49 | MHC.CM.PN ---
Pts EMERGENCY ROOM REGISTERED NURSE Brought a document in. She thought that it was a HCP; unfortunatly it was an unsigned Molst form. Pts Dtr returns from P.R. monday. The patient is improving; but will likely need STR. CM will follow.
[2020-03-18 15:52] LABS: Glucose, Whole Blood 127 mg/dL (60-115)
--- NOTE | 2020-03-18 19:32 | PC.NURSE ---
pt has been removing both his high flow nasal cannula and the non rebreather. He desats to mid 80'd until oxygen replaced. Pt did not tolerate his meal, took only bites of food and refused. He has trouble managing his secretions and has secretions pooled in mouth. Will continue to monitor
[2020-03-18 19:43] LABS: Glucose, Whole Blood 243 mg/dL (60-115)
[2020-03-18] MEDS: Acetaminophen 325 MG TABLET 650 MG PO (19:56)
[2020-03-18] MEDS: Melatonin 3 MG TABLET 6 MG PO (20:51)
[2020-03-18] MEDS: Insulin Glargine,Hum.rec.anlog 100 UNIT/ML 10 ML VIAL 10 UNIT SUBCUT (21:05)
--- NOTE | 2020-03-18 21:54 | PC.NURSE ---
pt has removed his oxygen several times, high flow cannula and mask replaced. Pt then rests but becomes restless and removes the oxygen again. Will continue to monitor and reapply oxygen
[2020-03-19] VITALS (9 sets, daily range): BP systolic 121–154; BP diastolic 80–93; PULSE 97–129; RESP 18–24; TEMP 36.1–37; O2SAT 90–98
[2020-03-19] MEDS: 0.9 % Sodium Chloride Flush 3 ML SYRINGE IVFLUSH ×4 (01:37→21:00)
[2020-03-19] MEDS: Butalb/Acetamin/Caff 50/325/40 TABLET 2 TAB PO (05:09)
[2020-03-19] MEDS: guaiFENesin DM 100/10/5 ML 5 ML SYRUP PO ×4 (05:09→20:59)
[2020-03-19] MEDS: Omeprazole 20 MG CAPSULE.DR PO (05:10)
[2020-03-19 06:55] LABS: Basophils Percent Auto 0.1 % (0-2); Eosinophils Percent Auto 0.1 % (0-4); Hemoglobin 12.9 g/dl (14.0-18.0); Imm Gran Abs Auto 0.13 X10*3/uL (0.00-0.03); Imm Gran Pct Auto 0.7 % (0.0-0.4); Lymphocytes Absolute Auto 0.4 X10*3/uL (1.2-4.9); MANUAL DIFF FLAG SCAN; Mean Corpuscular HGB Conc 33.9 g/dl (31.0-36.0); Mean Corpuscular Volume 94.3 fL (80-98); Mean Platelet Volume 11.8 fL (9.4-12.4); Monocytes Absolute Auto 0.4 X10*3/uL (0.1-1.2); Neutrophils Absolute Auto 18.2 X10*3/uL (2.0-8.3); Neutrophils Percent Auto 95.1 % (45-73); Platelet Count 150 X10*3/uL (160-400); Red Blood Count 4.03 X10*6/uL (4.60-5.80); Red Cell Distribution Width 12.7 % (11.0-16.0); SCAN SMEAR FLAG 1; White Blood Count 19.2 X10*3/uL (4.8-10.8)
[2020-03-19 07:25] LABS: Anion Gap 20 (12-20); Blood Urea Nitrogen 34 mg/dL (9-16); Carbon Dioxide 22 mmol/L (22-29); Chloride 97 mmol/L (96-108); Creatinine Clr Calc Pharmacy 65.7; Estimated Glomerular Filt Rate > 60; Glucose Fasting 278 mg/dL (60-99); Sodium 135 mmol/L (135-145)
[2020-03-19 07:38] LABS: Glucose, Whole Blood 247 mg/dL (60-115)
[2020-03-19] MEDS: Ferrous Sulfate 324 MG TABLET.DR PO ×2 (08:26→20:59)
[2020-03-19] MEDS: Ascorbic Acid 500 MG TABLET PO (08:26)
[2020-03-19] MEDS: Zinc Sulfate 220 MG CAPSULE PO (08:27)
[2020-03-19] MEDS: Pravastatin Sodium 10 MG TABLET PO (08:27)
[2020-03-19] MEDS: Calcium + Vitamin D 250 MG TABLET PO ×2 (08:27→20:59)
[2020-03-19] MEDS: Montelukast Sodium 10 MG TABLET PO (08:27)
[2020-03-19] MEDS: Aspirin Enteric Coated 81 MG TABLET.DR PO (08:27)
[2020-03-19] MEDS: Metoprolol Tartrate 25 MG TABLET PO ×2 (08:28→20:59)
[2020-03-19] MEDS: Enoxaparin Sodium 40 MG/0.4 ML SYRINGE SUBCUT ×2 (08:32→20:58)
[2020-03-19] MEDS: Fluticasone Propionate 100 MCG BLST.W.DEV 2 PUFF INHALE (08:49)
[2020-03-19] MEDS: Insulin Lispro 100 UNIT/ML 3 ML VIAL SUBCUT ×3 (08:49→17:41)
[2020-03-19 09:00] LABS: SLIDE REVIEW VERIFIED
[2020-03-19 11:16] LABS: Glucose, Whole Blood 211 mg/dL (60-115)
--- NOTE | 2020-03-19 12:48 | P.PNIM_ITS ---
Subjective Subjective Date of Service: 03/19/20 Interval History: sob Cardiovascular Cardiovascular: Reports no additional cardiovascular complaints Gastrointestinal Gastrointestinal: Reports no additional gastrointestinal complaints Physical Exam Vital Signs: Vital Signs: Last Vital Signs Temp 97.0 F 03/19/20 11:54 Pulse 106 H 03/19/20 11:54 Resp 22 H 03/19/20 11:54 BP 133/82 03/19/20 11:54 Pulse Ox 96 03/19/20 11:54 Body Mass Index 21.3 General: AO X 3, looks a little more dyspneic today Resp: diminished CVS: S1,S2,RRR GI: soft, non tender, non distended Neuro: motor grossly intact Psych: appropriate affect Objective Data Current Medications Generic Name Dose Route Start Last Admin Trade Name Freq PRN Reason Stop Dose Admin Acetaminophen 650 mg 03/13/20 13:45 03/18/20 19:56 Acetaminophen 325 Mg Tablet PO 650 mg Q12H PRN Administration HEADACHES , Acetaminophen/Butalbital/Caffeine 2 tab 03/13/20 13:45 03/19/20 05:09 Butalb/Acetamin/Caff 50/325/40 Tablet PO 2 tab Q6H PRN Administration headache Ascorbic Acid 500 mg 03/10/20 09:00 03/19/20 08:26 Ascorbic Acid 500 Mg Tablet PO 500 mg DAILY [facility] Administration Aspirin 81 mg 03/06/20 09:00 03/19/20 08:27 Aspirin Enteric Coated 81 Mg Tablet. PO 81 mg DAILY [facility] Administration Benzocaine 1 lozenge 03/15/20 15:24 Throat Lozenge, Medicated Lozenge MUCOUS MEM Q2H PRN Sore Throat Calcium Carbonate/Cholecalciferol 250 mg 03/05/20 21:00 03/19/20 08:27 Calcium + Vitamin D 250 Mg Tablet PO 250 mg BID [facility] Administration Docusate Sodium 100 mg 03/05/20 17:25 Docusate Sodium 100 Mg Capsule PO BID PRN Constipation Enoxaparin Sodium 40 mg 03/09/20 10:15 03/19/20 08:32 Enoxaparin Sodium 40 Mg/0.4 Ml Syringe SUBCUT 40 mg Q12H [facility] Administration Ferrous Sulfate 324 mg 03/05/20 21:00 03/19/20 08:26 Ferrous Sulfate 324 Mg Tablet. PO 324 mg BID [facility] Administration Fluticasone Propionate 2 spray 03/05/20 17:25 Fluticasone Propionate Nasal 16 Gm [place] NOSTRIL-B DAILY PRN Nasal Congestion Fluticasone Propionate 2 puff 03/05/20 20:00 03/19/20 08:49 Fluticasone Propionate 100 Mcg Blst.W.Dev INHALE 2 puff RBID [facility] Administration Guaifenesin/Dextromethorphan 5 ml 03/10/20 17:45 03/19/20 05:09 Guaifenesin Dm 100/10/5 Ml 5 Ml Syrup PO 5 ml Q6H [facility] Administration Insulin Glargine 10 unit 03/13/20 21:00 03/18/20 21:05 Insulin Glargine,Hum.Rec.Anlog 100 Unit/Ml 10 Ml Vial SUBCUT 10 unit BEDTIME [facility] Administration Insulin Human Lispro 0 unit 03/09/20 16:30 03/19/20 08:49 Insulin Lispro 100 Unit/Ml 3 Ml Vial SUBCUT 6 unit QIDACHS [facility] Administration Protocol Melatonin 6 mg 03/06/20 21:00 03/18/20 20:51 Melatonin 3 Mg Tablet PO 6 mg BEDTIME PRN Administration Insomnia Methylprednisolone Sodium Succinate 40 mg 03/16/20 09:00 03/19/20 08:27 Methylprednisolone Sod Succ/Pf 40 Mg/Ml Vial IVPUSH 40 mg DAILY [facility] Administration Metoprolol Tartrate 25 mg 03/05/20 21:00 03/19/20 08:28 Metoprolol Tartrate 25 Mg Tablet PO 25 mg BID [facility] Administration Protocol Montelukast Sodium 10 mg 03/06/20 09:00 03/19/20 08:27 Montelukast Sodium 10 Mg Tablet PO 10 mg DAILY [facility] Administration Omeprazole 20 mg 03/06/20 06:30 03/19/20 05:10 Omeprazole 20 Mg Capsule.Dr PO 20 mg DAILY@0630 [facility] Administration Ondansetron HCl 4 mg 03/11/20 07:04 03/17/20 23:43 Ondansetron Hcl 4 Mg/2 Ml Vial IVPUSH 4 mg Q6H PRN Administration Nausea Pharmacy Consult 1 each 03/05/20 16:16 Consult Rx Perform Med Rec MISCELLANE ONCE PRN Consult order Pravastatin Sodium 10 mg 03/06/20 09:00 03/19/20 08:27 Pravastatin Sodium 10 Mg Tablet PO 10 mg DAILY [facility] Administration Sodium Chloride 3 ml 03/06/20 00:00 03/19/20 08:27 0.9 % Sodium Chloride Flush 3 Ml Syringe IVFLUSH 3 ml QSHIFT [facility] Administration Sodium Chloride 1 spray 03/13/20 13:43 03/14/20 08:04 Sodium Chloride 0.65 % Nasal 44 Ml Sprbtl NOSTRIL-B 1 spray Q1H PRN Administration Dry Nasal Passages Tiotropium [place] 1 puff 03/13/20 08:00 03/19/20 09:15 Tiotropium [place] 18 Mcg Cap.W.Dev INHALE Not Given RDAILY [facility] Zinc Sulfate 220 mg 03/12/20 09:00 03/19/20 08:27 Zinc Sulfate 220 Mg Capsule PO 220 mg DAILY [facility] Administration Labs CBC & Chem 7: 03/19/20 05:59 03/19/20 05:59 Microbiology Microbiology Results: Microbiology 03/08/20 06:39 Blood - Venous Blood Culture - Final No growth after 5 days. 03/08/20 06:39 Blood - Venous Blood Culture - Final No growth after 5 days. 03/06/20 19:07 Blood - Venous Blood Culture - Final No growth after 5 days. 03/06/20 19:07 Blood - Venous Blood Culture - Final No growth after 5 days. 03/05/20 13:44 Blood - Venous Blood Culture - Final No growth after 5 days. 03/05/20 13:29 Blood - Venous Blood Culture - Final No growth after 5 days. Assessment and Plan (1) Acute respiratory failure with hypoxia: Status: Acute (2) Metabolic acidosis: Status: Acute (3) Hyponatremia: Status: Acute (4) Pneumonia: Status: Acute (5) COVID-19: Status: Acute Assessment and Plan: 85M presented with lethargy, sob Acute hypoxic respiratory failure secondary to COVID pneumonia beleive he is over the peak, will need time to wean down o2 Continue steroids Completed course of antibiotics Continue intermediate dose Lovenox Status post convalescent plasma Acute kidney injury Resolved Diabetes insulin Asthma On IV steroid, Continue Flovent, singular, and Spiriva hyponatremia resolved
[2020-03-19 16:15] LABS: Glucose, Whole Blood 240 mg/dL (60-115)
--- NOTE | 2020-03-19 18:31 | PC.RT ---
Pt has a Sore under the base of his nose. RN applied skin barrier over area. Patient was the placed on a NRB to give his nose a break. jose luis well. Will continue to monitor skin breakdown from the HFNC
[2020-03-19 20:07] LABS: Glucose, Whole Blood 170 mg/dL (60-115)
[2020-03-19] MEDS: Insulin Glargine,Hum.rec.anlog 100 UNIT/ML 10 ML VIAL 10 UNIT SUBCUT (20:59)
[2020-03-20] VITALS (16 sets, daily range): BP systolic 133–161; BP diastolic 78–93; PULSE 102–129; RESP 18–26; TEMP 36.2–37.6; O2SAT 78–100; BMI 20.2
[2020-03-20] MEDS: Melatonin 3 MG TABLET 6 MG PO (01:06)
[2020-03-20] MEDS: Omeprazole 20 MG CAPSULE.DR PO (06:45)
[2020-03-20] MEDS: guaiFENesin DM 100/10/5 ML 5 ML SYRUP PO ×2 (06:45→12:21)
[2020-03-20 07:06] LABS: Anion Gap 21 (12-20); Blood Urea Nitrogen 41 mg/dL (9-16); Calcium 8.4 mg/dL (8.4-10.2); Carbon Dioxide 25 mmol/L (22-29); Chloride 99 mmol/L (96-108); Creatinine Clr Calc Pharmacy 65.7; Estimated Glomerular Filt Rate > 60; Glucose Fasting 162 mg/dL (60-99); Potassium 4.3 mmol/l (3.3-5.1); Sodium 141 mmol/L (135-145)
[2020-03-20 07:08] LABS: Basophils Percent Auto 0.1 % (0-2); Hematocrit 40.1 % (42-52); Hemoglobin 13.7 g/dl (14.0-18.0); Imm Gran Abs Auto 0.17 X10*3/uL (0.00-0.03); Imm Gran Pct Auto 0.8 % (0.0-0.4); Lymphocytes Absolute Auto 0.5 X10*3/uL (1.2-4.9); Lymphocytes Percent Auto 2.1 % (20-40); MANUAL DIFF FLAG SCAN; Mean Corpuscular HGB Conc 34.2 g/dl (31.0-36.0); Mean Corpuscular Hemoglobin 32.3 pg (27.0-33.0); Mean Corpuscular Volume 94.6 fL (80-98); Mean Platelet Volume 12.4 fL (9.4-12.4); Monocytes Absolute Auto 0.5 X10*3/uL (0.1-1.2); Monocytes Percent Auto 2.3 % (2-11); Neutrophils Absolute Auto 20.8 X10*3/uL (2.0-8.3); Neutrophils Percent Auto 94.7 % (45-73); Platelet Count 168 X10*3/uL (160-400); Red Blood Count 4.24 X10*6/uL (4.60-5.80); Red Cell Distribution Width 12.9 % (11.0-16.0); SCAN SMEAR FLAG 1
[2020-03-20 07:52] LABS: SLIDE REVIEW VERIFIED
[2020-03-20 08:02] LABS: Glucose, Whole Blood 169 mg/dL (60-115)
[2020-03-20] MEDS: Metoprolol Tartrate 25 MG TABLET PO ×2 (08:06→20:11)
[2020-03-20] MEDS: Aspirin Enteric Coated 81 MG TABLET.DR PO (08:06)
[2020-03-20] MEDS: 0.9 % Sodium Chloride Flush 3 ML SYRINGE IVFLUSH ×3 (08:23→20:11)
[2020-03-20] MEDS: Sodium Chloride 0.65 % Nasal 44 ML SPRBTL 1 SPRAY NOSTRIL-B (08:23)
--- NOTE | 2020-03-20 10:57 | HO.PM.IMPN ---
Subjective Subjective Date of Service: 03/20/20 Interval History: improving Cardiovascular Cardiovascular: Reports no additional cardiovascular complaints Gastrointestinal Gastrointestinal: Reports no additional gastrointestinal complaints Physical Exam Vital Signs: Vital Signs: Last Vital Signs Temp 97.4 F 03/20/20 07:40 Pulse 128 H 03/20/20 07:40 Resp 22 H 03/20/20 07:40 BP 161/78 H 03/20/20 07:40 Pulse Ox 90 L 03/20/20 08:07 Body Mass Index 21.3 General: AO X 3, ill appearing Resp: diminished CVS: S1,S2,RRR GI: soft, non tender, non distended Neuro: motor grossly intact Psych: appropriate affect Objective Data Current Medications Generic Name Dose Route Start Last Admin Trade Name Freq PRN Reason Stop Dose Admin Acetaminophen 650 mg 03/13/20 13:45 03/18/20 19:56 Acetaminophen 325 Mg Tablet PO 650 mg Q12H PRN Administration HEADACHES , Acetaminophen/Butalbital/Caffeine 2 tab 03/13/20 13:45 03/19/20 05:09 Butalb/Acetamin/Caff 50/325/40 Tablet PO 2 tab Q6H PRN Administration headache Ascorbic Acid 500 mg 03/10/20 09:00 03/20/20 09:02 Ascorbic Acid 500 Mg Tablet PO Not Given DAILY [facility] Aspirin 81 mg 03/06/20 09:00 03/20/20 08:06 Aspirin Enteric Coated 81 Mg Tablet. PO 81 mg DAILY [facility] Administration Benzocaine 1 lozenge 03/15/20 15:24 Throat Lozenge, Medicated Lozenge MUCOUS MEM Q2H PRN Sore Throat Calcium Carbonate/Cholecalciferol 250 mg 03/05/20 21:00 03/20/20 09:02 Calcium + Vitamin D 250 Mg Tablet PO Not Given BID [facility] Docusate Sodium 100 mg 03/05/20 17:25 Docusate Sodium 100 Mg Capsule PO BID PRN Constipation Enoxaparin Sodium 40 mg 03/09/20 10:15 03/19/20 20:58 Enoxaparin Sodium 40 Mg/0.4 Ml Syringe SUBCUT 40 mg Q12H [facility] Administration Ferrous Sulfate 324 mg 03/05/20 21:00 03/20/20 10:07 Ferrous Sulfate 324 Mg Tablet. PO Not Given BID [facility] Fluticasone Propionate 2 spray 03/05/20 17:25 Fluticasone Propionate Nasal 16 Gm [place] NOSTRIL-B DAILY PRN Nasal Congestion Fluticasone Propionate 2 puff 03/05/20 20:00 03/20/20 09:35 Fluticasone Propionate 100 Mcg Blst.W.Dev INHALE Not Given RBID [facility] Guaifenesin/Dextromethorphan 5 ml 03/10/20 17:45 03/20/20 06:45 Guaifenesin Dm 100/10/5 Ml 5 Ml Syrup PO 5 ml Q6H [facility] Administration Insulin Glargine 10 unit 03/13/20 21:00 03/19/20 20:59 Insulin Glargine,Hum.Rec.Anlog 100 Unit/Ml 10 Ml Vial SUBCUT 10 unit BEDTIME [facility] Administration Insulin Human Lispro 0 unit 03/09/20 16:30 03/20/20 08:07 Insulin Lispro 100 Unit/Ml 3 Ml Vial SUBCUT Not Given QIDACHS [facility] Protocol Lidocaine/Diphenhydr/Alum/Mg/Simeth 10 ml 03/19/20 13:20 Mag&Al/Sim/Diphenhyd/Lidocaine 10 Ml Oral.Susp PO Q4H PRN sore throat Protocol Melatonin 6 mg 03/06/20 21:00 03/20/20 01:06 Melatonin 3 Mg Tablet PO 6 mg BEDTIME PRN Administration Insomnia Methylprednisolone Sodium Succinate 40 mg 03/16/20 09:00 03/20/20 08:06 Methylprednisolone Sod Succ/Pf 40 Mg/Ml Vial IVPUSH 40 mg DAILY [facility] Administration Metoprolol Tartrate 25 mg 03/05/20 21:00 03/20/20 08:06 Metoprolol Tartrate 25 Mg Tablet PO 25 mg BID [facility] Administration Protocol Montelukast Sodium 10 mg 03/06/20 09:00 03/20/20 10:07 Montelukast Sodium 10 Mg Tablet PO Not Given DAILY [facility] Omeprazole 20 mg 03/06/20 06:30 03/20/20 06:45 Omeprazole 20 Mg Capsule.Dr PO 20 mg DAILY@0630 [facility] Administration Ondansetron HCl 4 mg 03/11/20 07:04 03/17/20 23:43 Ondansetron Hcl 4 Mg/2 Ml Vial IVPUSH 4 mg Q6H PRN Administration Nausea Pharmacy Consult 1 each 03/05/20 16:16 Consult Rx Perform Med Rec MISCELLANE ONCE PRN Consult order Pravastatin Sodium 10 mg 03/06/20 09:00 03/20/20 10:08 Pravastatin Sodium 10 Mg Tablet PO Not Given DAILY [facility] Sodium Chloride 3 ml 03/06/20 00:00 03/20/20 08:23 0.9 % Sodium Chloride Flush 3 Ml Syringe IVFLUSH 3 ml QSHIFT [facility] Administration Sodium Chloride 1 spray 03/13/20 13:43 03/20/20 08:23 Sodium Chloride 0.65 % Nasal 44 Ml Sprbtl NOSTRIL-B 1 spray Q1H PRN Administration Dry Nasal Passages Tiotropium [place] 1 puff 03/13/20 08:00 03/20/20 09:35 Tiotropium [place] 18 Mcg Cap.W.Dev INHALE Not Given RDAILY [facility] Zinc Sulfate 220 mg 03/12/20 09:00 03/20/20 10:08 Zinc Sulfate 220 Mg Capsule PO Not Given DAILY [facility] Labs CBC & Chem 7: 03/20/20 05:58 03/20/20 05:58 Microbiology Microbiology Results: Microbiology 03/08/20 06:39 Blood - Venous Blood Culture - Final No growth after 5 days. 03/08/20 06:39 Blood - Venous Blood Culture - Final No growth after 5 days. 03/06/20 19:07 Blood - Venous Blood Culture - Final No growth after 5 days. 03/06/20 19:07 Blood - Venous Blood Culture - Final No growth after 5 days. 03/05/20 13:44 Blood - Venous Blood Culture - Final No growth after 5 days. 03/05/20 13:29 Blood - Venous Blood Culture - Final No growth after 5 days. Assessment and Plan (1) Acute respiratory failure with hypoxia: Status: Acute (2) Metabolic acidosis: Status: Acute (3) Hyponatremia: Status: Acute (4) Pneumonia: Status: Acute (5) COVID-19: Status: Acute Assessment and Plan: 85M presented with lethargy, sob Acute hypoxic respiratory failure secondary to COVID pneumonia believe he is over the peak, will need time to wean down o2, was taken off high flow today, conitnue with NRB Continue steroids Completed course of antibiotics Continue intermediate dose Lovenox Status post convalescent plasma Acute kidney injury Resolved Diabetes insulin Asthma On IV steroid, Continue Flovent, singular, and Spiriva hyponatremia resolved
[2020-03-20 11:47] LABS: Glucose, Whole Blood 221 mg/dL (60-115)
[2020-03-20] MEDS: Insulin Lispro 100 UNIT/ML 3 ML VIAL SUBCUT ×2 (12:20→18:06)
[2020-03-20] MEDS: Enoxaparin Sodium 40 MG/0.4 ML SYRINGE SUBCUT ×2 (12:21→22:54)
[2020-03-20 16:20] LABS: Glucose, Whole Blood 220 mg/dL (60-115)
--- NOTE | 2020-03-20 17:32 | PC.NURSE ---
Patient restless, and mildly anxious. Attempted to wean patient to oximizer, found to be at 78%. Patient now on 55L, 95% 02. 02 sat 90-93%. Lungs diminished. RR 20. Denies any pain. Repositioned q2 Hrs. Attempted to feed patient for meals, patient tolerating spoonfuls of thin liquids, but having consistent difficulty with managing pureed. Small bites of pureed given to patient, pooling noted in patient's mouth, speech following.
[2020-03-20] MEDS: Fluticasone Propionate 100 MCG BLST.W.DEV 2 PUFF INHALE (19:14)
[2020-03-20 19:47] LABS: Glucose, Whole Blood 194 mg/dL (60-115)
[2020-03-20] MEDS: Insulin Glargine,Hum.rec.anlog 100 UNIT/ML 10 ML VIAL 10 UNIT SUBCUT (20:10)
[2020-03-21] VITALS (15 sets, daily range): BP systolic 108–160; BP diastolic 56–84; PULSE 110–126; RESP 20–22; TEMP 36.1–36.8; O2SAT 87–96
[2020-03-21] MEDS: Acetaminophen 325 MG TABLET 650 MG PO (00:31)
--- NOTE | 2020-03-21 00:54 | PC.NURSE ---
Addendum entered by Shivani Nicole RN 03/21/20 06:28: Pt desating to low 80s on high flow 100%. Nonrebreather placed over high flow. Maintaining spO2 >89%. Addendum entered by Shivani Nicole RN 03/21/20 04:04: Pt becoming increasingly anxious and is requesting anxiety medication. Pt states he feels short of breath and is having difficulty swallowing. SpO2 95% on 100% high flow, nrb removed over high flow. Pt up to chair. notified of anxiety. 0.5 mg IV ativan ordered and administered. Pt unable to swallow small amount of thin liquid from spoon, will hold further po meds. Original Note: Pt mildly anxious, temp 99.6. Tylenol given. Desating to low 80s on 95% high flow, nonrebreather placed over high flow. SpO2 improving >90%.
[2020-03-21] MEDS: LORazepam 2 MG/ML VIAL 0.5 MG IVPUSH (04:00)
[2020-03-21] MEDS: Sodium Chloride 0.65 % Nasal 44 ML SPRBTL 1 SPRAY NOSTRIL-B (04:00)
[2020-03-21] MEDS: Fluticasone Propionate 100 MCG BLST.W.DEV 2 PUFF INHALE (07:25)
[2020-03-21 08:05] LABS: Glucose, Whole Blood 119 mg/dL (60-115)
[2020-03-21] MEDS: Morphine Sulfate 2 MG/ML CARTRIDGE IVPUSH (08:43)
[2020-03-21] MEDS: Enoxaparin Sodium 40 MG/0.4 ML SYRINGE SUBCUT ×2 (10:42→21:29)
[2020-03-21] MEDS: Metoprolol Tartrate 25 MG TABLET PO ×2 (10:43→19:55)
[2020-03-21] MEDS: 0.9 % Sodium Chloride Flush 3 ML SYRINGE IVFLUSH ×2 (10:44→16:47)
--- NOTE | 2020-03-21 12:06 | P.PNIM_ITS ---
Subjective Subjective Date of Service: 03/21/20 Interval History: sob Cardiovascular Cardiovascular: Reports no additional cardiovascular complaints Genitourinary Genitourinary: Reports no additional male genitourinary complaints Physical Exam Vital Signs: Vital Signs: Last Vital Signs Temp 97.9 F 03/21/20 07:29 Pulse 122 H 03/21/20 10:43 Resp 22 H 03/21/20 11:27 BP 116/74 03/21/20 07:29 Pulse Ox 91 L 03/21/20 08:52 Body Mass Index 20.2 General: AO X 3, anxious Resp: rhonchi CVS: S1,S2,RRR GI: soft, non tender, non distended Neuro: motor grossly intact Psych: appropriate affect Objective Data Current Medications Generic Name Dose Route Start Last Admin Trade Name Freq PRN Reason Stop Dose Admin Acetaminophen 650 mg 03/13/20 13:45 03/21/20 00:31 Acetaminophen 325 Mg Tablet PO 650 mg Q12H PRN Administration HEADACHES , Acetaminophen/Butalbital/Caffeine 2 tab 03/13/20 13:45 03/19/20 05:09 Butalb/Acetamin/Caff 50/325/40 Tablet PO 2 tab Q6H PRN Administration headache Ascorbic Acid 500 mg 03/10/20 09:00 03/21/20 10:44 Ascorbic Acid 500 Mg Tablet PO Not Given DAILY [facility] Aspirin 81 mg 03/06/20 09:00 03/21/20 10:44 Aspirin Enteric Coated 81 Mg Tablet. PO Not Given DAILY [facility] Benzocaine 1 lozenge 03/15/20 15:24 Throat Lozenge, Medicated Lozenge MUCOUS MEM Q2H PRN Sore Throat Calcium Carbonate/Cholecalciferol 250 mg 03/05/20 21:00 03/21/20 10:44 Calcium + Vitamin D 250 Mg Tablet PO Not Given BID [facility] Docusate Sodium 100 mg 03/05/20 17:25 Docusate Sodium 100 Mg Capsule PO BID PRN Constipation Enoxaparin Sodium 40 mg 03/09/20 10:15 03/21/20 10:42 Enoxaparin Sodium 40 Mg/0.4 Ml Syringe SUBCUT 40 mg Q12H ACE Administration Ferrous Sulfate 324 mg 03/05/20 21:00 03/21/20 10:45 Ferrous Sulfate 324 Mg Tablet. PO Not Given BID [facility] Fluticasone Propionate 2 spray 03/05/20 17:25 Fluticasone Propionate Nasal 16 Gm [place] NOSTRIL-B DAILY PRN Nasal Congestion Fluticasone Propionate 2 puff 03/05/20 20:00 03/21/20 07:25 Fluticasone Propionate 100 Mcg Blst.W.Dev INHALE 2 puff RBID [facility] Administration Guaifenesin/Dextromethorphan 5 ml 03/10/20 17:45 03/21/20 04:37 Guaifenesin Dm 100/10/5 Ml 5 Ml Syrup PO Not Given Q6H [facility] Insulin Glargine 10 unit 03/13/20 21:00 03/20/20 20:10 Insulin Glargine,Hum.Rec.Anlog 100 Unit/Ml 10 Ml Vial SUBCUT 10 unit BEDTIME [facility] Administration Insulin Human Lispro 0 unit 03/09/20 16:30 03/21/20 10:43 Insulin Lispro 100 Unit/Ml 3 Ml Vial SUBCUT Not Given QIDACHS [facility] Protocol Lidocaine/Diphenhydr/Alum/Mg/Simeth 10 ml 03/19/20 13:20 Mag&Al/Sim/Diphenhyd/Lidocaine 10 Ml Oral.Susp PO Q4H PRN sore throat Protocol Melatonin 6 mg 03/06/20 21:00 03/20/20 01:06 Melatonin 3 Mg Tablet PO 6 mg BEDTIME PRN Administration Insomnia Methylprednisolone Sodium Succinate 40 mg 03/16/20 09:00 03/21/20 10:43 Methylprednisolone Sod Succ/Pf 40 Mg/Ml Vial IVPUSH 40 mg DAILY [facility] Administration Metoprolol Tartrate 25 mg 03/05/20 21:00 03/21/20 10:43 Metoprolol Tartrate 25 Mg Tablet PO 25 mg BID [facility] Administration Protocol Montelukast Sodium 10 mg 03/06/20 09:00 03/21/20 10:45 Montelukast Sodium 10 Mg Tablet PO Not Given DAILY [facility] Omeprazole 20 mg 03/06/20 06:30 03/21/20 04:37 Omeprazole 20 Mg Capsule.Dr PO Not Given DAILY@0630 [facility] Ondansetron HCl 4 mg 03/11/20 07:04 03/17/20 23:43 Ondansetron Hcl 4 Mg/2 Ml Vial IVPUSH 4 mg Q6H PRN Administration Nausea Pharmacy Consult 1 each 03/05/20 16:16 Consult Rx Perform Med Rec MISCELLANE ONCE PRN Consult order Pravastatin Sodium 10 mg 03/06/20 09:00 03/21/20 10:45 Pravastatin Sodium 10 Mg Tablet PO Not Given DAILY [facility] Sodium Chloride 3 ml 03/06/20 00:00 03/21/20 10:44 0.9 % Sodium Chloride Flush 3 Ml Syringe IVFLUSH 3 ml QSHIFT [facility] Administration Sodium Chloride 1 spray 03/13/20 13:43 03/21/20 04:00 Sodium Chloride 0.65 % Nasal 44 Ml Sprbtl NOSTRIL-B 1 spray Q1H PRN Administration Dry Nasal Passages Tiotropium [place] 1 puff 03/13/20 08:00 03/21/20 07:29 Tiotropium [place] 18 Mcg Cap.W.Dev INHALE 1 puff RDAILY [facility] Administration Zinc Sulfate 220 mg 03/12/20 09:00 03/21/20 10:45 Zinc Sulfate 220 Mg Capsule PO Not Given DAILY [facility] Labs CBC & Chem 7: 03/20/20 05:58 03/20/20 05:58 Microbiology Microbiology Results: Microbiology 03/08/20 06:39 Blood - Venous Blood Culture - Final No growth after 5 days. 03/08/20 06:39 Blood - Venous Blood Culture - Final No growth after 5 days. 03/06/20 19:07 Blood - Venous Blood Culture - Final No growth after 5 days. 03/06/20 19:07 Blood - Venous Blood Culture - Final No growth after 5 days. 03/05/20 13:44 Blood - Venous Blood Culture - Final No growth after 5 days. 03/05/20 13:29 Blood - Venous Blood Culture - Final No growth after 5 days. Assessment and Plan (1) Acute respiratory failure with hypoxia: Status: Acute (2) Metabolic acidosis: Status: Acute (3) Hyponatremia: Status: Acute (4) Pneumonia: Status: Acute (5) COVID-19: Status: Acute Assessment and Plan: 85M presented with lethargy, sob Acute hypoxic respiratory failure secondary to COVID pneumonia believe he is over the peak, will need time to wean down o2, was taken off high flow yesterday, conitnue with NRB Continue steroids Completed course of antibiotics Continue intermediate dose Lovenox Status post convalescent plasma Acute kidney injury Resolved Diabetes insulin Asthma On IV steroid, Continue Flovent, singular, and Spiriva hyponatremia resolved
[2020-03-21 12:07] LABS: Glucose, Whole Blood 129 mg/dL (60-115)
[2020-03-21 16:35] LABS: Glucose, Whole Blood 183 mg/dL (60-115)
[2020-03-21 21:05] LABS: Glucose, Whole Blood 226 mg/dL (60-115)
[2020-03-21] MEDS: Insulin Lispro 100 UNIT/ML 3 ML VIAL SUBCUT (21:30)
[2020-03-22] VITALS (8 sets, daily range): BP systolic 127–145; BP diastolic 76–95; PULSE 115–128; RESP 18–22; TEMP 36–37.2; O2SAT 90–96
[2020-03-22] MEDS: 0.9 % Sodium Chloride Flush 3 ML SYRINGE IVFLUSH ×3 (00:06→23:18)
[2020-03-22] MEDS: diphenhydrAMINE HCL 50 MG/ML VIAL 25 MG IVPUSH (01:06)
--- NOTE | 2020-03-22 03:32 | PC.NURSE ---
Addendum entered by Shivani Nicole RN 03/22/20 05:04: Pt complaining of mouth pain, hr sustaining 120-130s sinus on tele. made aware. 2 mg IV morphine ordered and administered. Mouth care provided, pt repositioned in chair. Pt resting comfortably, high fall risk measures in place, call zapata in reach. Original Note: Pt coughing up phlegm that appears to be crushed up medications. Pt suctioned and mouth care provided. Pt only able to swallow teaspoon amount of thin liquids at times without coughing. Dr Queen made aware. Will hold further po intake until pt can safely swallow. Maintaining spo2 >90% on nrb.
[2020-03-22] MEDS: Morphine Sulfate 4 MG/ML CARTRIDGE 2 MG IVPUSH (04:51)
[2020-03-22 07:53] LABS: Glucose, Whole Blood 78 mg/dL (60-115)
[2020-03-22] MEDS: Metoprolol Tartrate 25 MG TABLET PO (09:06)
--- NOTE | 2020-03-22 10:23 | P.PNIM_ITS ---
Subjective Subjective Date of Service: 03/22/20 Interval History: poor appetite, breathing a bit better Cardiovascular Cardiovascular: Reports no additional cardiovascular complaints Gastrointestinal Gastrointestinal: Reports no additional gastrointestinal complaints Physical Exam Vital Signs: Vital Signs: Last Vital Signs Temp 97.7 F 03/22/20 07:18 Pulse 121 H 03/22/20 07:18 Resp 20 03/22/20 07:18 BP 143/77 H 03/22/20 07:18 Pulse Ox 94 03/22/20 07:18 Body Mass Index 20.2 General: AO X 3, ill appearing Resp: diminished CVS: S1,S2, rapid GI: soft, non tender, non distended Neuro: motor grossly intact Psych: appropriate affect Objective Data Current Medications Generic Name Dose Route Start Last Admin Trade Name Freq PRN Reason Stop Dose Admin Acetaminophen 650 mg 03/13/20 13:45 03/21/20 00:31 Acetaminophen 325 Mg Tablet PO 650 mg Q12H PRN Administration HEADACHES , Acetaminophen/Butalbital/Caffeine 2 tab 03/13/20 13:45 03/19/20 05:09 Butalb/Acetamin/Caff 50/325/40 Tablet PO 2 tab Q6H PRN Administration headache Ascorbic Acid 500 mg 03/10/20 09:00 03/22/20 09:02 Ascorbic Acid 500 Mg Tablet PO Not Given DAILY [facility] Aspirin 81 mg 03/06/20 09:00 03/22/20 09:02 Aspirin Enteric Coated 81 Mg Tablet. PO Not Given DAILY [facility] Benzocaine 1 lozenge 03/15/20 15:24 Throat Lozenge, Medicated Lozenge MUCOUS MEM Q2H PRN Sore Throat Calcium Carbonate/Cholecalciferol 250 mg 03/05/20 21:00 03/22/20 09:02 Calcium + Vitamin D 250 Mg Tablet PO Not Given BID [facility] Docusate Sodium 100 mg 03/05/20 17:25 Docusate Sodium 100 Mg Capsule PO BID PRN Constipation Enoxaparin Sodium 40 mg 03/09/20 10:15 03/21/20 21:29 Enoxaparin Sodium 40 Mg/0.4 Ml Syringe SUBCUT 40 mg Q12H ACE Administration Ferrous Sulfate 324 mg 03/05/20 21:00 03/22/20 09:02 Ferrous Sulfate 324 Mg Tablet. PO Not Given BID [facility] Fluticasone Propionate 2 spray 03/05/20 17:25 Fluticasone Propionate Nasal 16 Gm [place] NOSTRIL-B DAILY PRN Nasal Congestion Fluticasone Propionate 2 puff 03/05/20 20:00 03/22/20 08:05 Fluticasone Propionate 100 Mcg Blst.W.Dev INHALE Not Given RBID [facility] Guaifenesin/Dextromethorphan 5 ml 03/10/20 17:45 03/22/20 04:29 Guaifenesin Dm 100/10/5 Ml 5 Ml Syrup PO Not Given Q6H [facility] Insulin Glargine 10 unit 03/13/20 21:00 03/21/20 21:31 Insulin Glargine,Hum.Rec.Anlog 100 Unit/Ml 10 Ml Vial SUBCUT Not Given BEDTIME [facility] Insulin Human Lispro 0 unit 03/09/20 16:30 03/22/20 09:00 Insulin Lispro 100 Unit/Ml 3 Ml Vial SUBCUT Not Given QIDACHS [facility] Protocol Lidocaine/Diphenhydr/Alum/Mg/Simeth 10 ml 03/19/20 13:20 Mag&Al/Sim/Diphenhyd/Lidocaine 10 Ml Oral.Susp PO Q4H PRN sore throat Protocol Lidocaine/Diphenhydr/Alum/Mg/Simeth 10 ml 03/22/20 04:38 Mag&Al/Sim/Diphenhyd/Lidocaine 10 Ml Oral.Susp PO Q4H PRN Pain, Mild (Pain Scale 1-3) Protocol Melatonin 6 mg 03/06/20 21:00 03/20/20 01:06 Melatonin 3 Mg Tablet PO 6 mg BEDTIME PRN Administration Insomnia Methylprednisolone Sodium Succinate 40 mg 03/16/20 09:00 03/22/20 09:06 Methylprednisolone Sod Succ/Pf 40 Mg/Ml Vial IVPUSH 40 mg DAILY [facility] Administration Metoprolol Tartrate 25 mg 03/05/20 21:00 03/22/20 09:06 Metoprolol Tartrate 25 Mg Tablet PO 25 mg BID [facility] Administration Protocol Montelukast Sodium 10 mg 03/06/20 09:00 03/22/20 09:02 Montelukast Sodium 10 Mg Tablet PO Not Given DAILY [facility] Omeprazole 20 mg 03/06/20 06:30 03/22/20 04:29 Omeprazole 20 Mg Capsule.Dr PO Not Given DAILY@0630 [facility] Ondansetron HCl 4 mg 03/11/20 07:04 03/17/20 23:43 Ondansetron Hcl 4 Mg/2 Ml Vial IVPUSH 4 mg Q6H PRN Administration Nausea Pharmacy Consult 1 each 03/05/20 16:16 Consult Rx Perform Med Rec MISCELLANE ONCE PRN Consult order Pravastatin Sodium 10 mg 03/06/20 09:00 03/22/20 09:03 Pravastatin Sodium 10 Mg Tablet PO Not Given DAILY [facility] Saliva Substitute 1 spray 03/22/20 04:38 Dry Mouth [place] 30 Ml [place] MUCOUS MEM Q2H PRN Dry Mouth Sodium Chloride 3 ml 03/06/20 00:00 03/22/20 09:01 0.9 % Sodium Chloride Flush 3 Ml Syringe IVFLUSH 3 ml QSHIFT [facility] Administration Sodium Chloride 1 spray 03/13/20 13:43 03/21/20 04:00 Sodium Chloride 0.65 % Nasal 44 Ml Sprbtl NOSTRIL-B 1 spray Q1H PRN Administration Dry Nasal Passages Tiotropium [place] 1 puff 03/13/20 08:00 03/22/20 08:05 Tiotropium [place] 18 Mcg Cap.W.Dev INHALE Not Given RDAILY [facility] Zinc Sulfate 220 mg 03/12/20 09:00 03/22/20 09:03 Zinc Sulfate 220 Mg Capsule PO Not Given DAILY [facility] Labs CBC & Chem 7: 03/20/20 05:58 03/20/20 05:58 Microbiology Microbiology Results: Microbiology 03/08/20 06:39 Blood - Venous Blood Culture - Final No growth after 5 days. 03/08/20 06:39 Blood - Venous Blood Culture - Final No growth after 5 days. 03/06/20 19:07 Blood - Venous Blood Culture - Final No growth after 5 days. 03/06/20 19:07 Blood - Venous Blood Culture - Final No growth after 5 days. 03/05/20 13:44 Blood - Venous Blood Culture - Final No growth after 5 days. 03/05/20 13:29 Blood - Venous Blood Culture - Final No growth after 5 days. Assessment and Plan (1) Acute respiratory failure with hypoxia: Status: Acute (2) Metabolic acidosis: Status: Acute (3) Hyponatremia: Status: Acute (4) Pneumonia: Status: Acute (5) COVID-19: Status: Acute Assessment and Plan: 85M presented with lethargy, sob Acute hypoxic respiratory failure secondary to COVID pneumonia believe he is over the peak, but is overall slow to recover and suffering from poor appetite. has been suscessfully weaned off high flow, now on NRB alone will wean steroids Completed course of antibiotics Continue intermediate dose Lovenox Status post convalescent plasma given very poor intake will start maintance d51/2ns Acute kidney injury Resolved Diabetes insulin Asthma On IV steroid, Continue Flovent, singular, and Spiriva hyponatremia resolved
[2020-03-22] MEDS: Enoxaparin Sodium 40 MG/0.4 ML SYRINGE SUBCUT ×2 (10:54→23:18)
[2020-03-22] MEDS: Dextrose 5 % and 0.45 % NaCl 1,000 ML 80 ML IVCONT ×2 (10:55→23:21)
[2020-03-22 11:52] LABS: Glucose, Whole Blood 131 mg/dL (60-115)
--- NOTE | 2020-03-22 14:38 | PC.NURSE ---
1330 remains very weak. Having increased diff with swallowing. Very delayed swallow reflex, coughing after sm amt of liquids. Unable to take PO meds except metoprolol crushed with water. OOB to recliner for a short period of time. 1 assist to transfer. 100% non rebreather. Tachy on monitor at times. Mouth care given. Grand dtr updated with phone call. IVF started for hydration. Voided in urinal, urine concentrated
[2020-03-22 16:44] LABS: Glucose, Whole Blood 281 mg/dL (60-115)
[2020-03-22] MEDS: Insulin Lispro 100 UNIT/ML 3 ML VIAL SUBCUT (17:57)
[2020-03-22 21:16] LABS: Glucose, Whole Blood 270 mg/dL (60-115)
[2020-03-23] VITALS (19 sets, daily range): BP systolic 114–149; BP diastolic 72–98; PULSE 107–138; RESP 18–24; TEMP 36.1–36.5; O2SAT 88–95
[2020-03-23] MEDS: Metoprolol Tartrate 5 MG/5 ML VIAL IVPUSH ×4 (02:15→20:08)
--- NOTE | 2020-03-23 06:32 | PC.NURSE ---
Pt. unable to swallow medications crushed. Pt lets food sit in mouth. Unable to take scheduled PO lopressor. HR sustaining 120-130's. BP 145/92. Md made aware. Order for 5mg IV Lopressor ordered and administered with some effect. HR sustaining 115-120's. BP 129/66. Pt. still on 100% NRB satting 98%. Asking for frequent mouth care and suction. Voiding into urinal. Able to communicate needs with hand gestures but not speaking. Will continue to monitor.
[2020-03-23 06:34] LABS: Basophils Percent Auto 0.1 % (0-2); Hematocrit 39.3 % (42-52); Imm Gran Abs Auto 0.14 X10*3/uL (0.00-0.03); Imm Gran Pct Auto 0.7 % (0.0-0.4); Lymphocytes Absolute Auto 0.3 X10*3/uL (1.2-4.9); Lymphocytes Percent Auto 1.4 % (20-40); MANUAL DIFF FLAG SCAN; Mean Corpuscular HGB Conc 33.1 g/dl (31.0-36.0); Mean Corpuscular Hemoglobin 31.8 pg (27.0-33.0); Mean Corpuscular Volume 96.1 fL (80-98); Mean Platelet Volume 12.3 fL (9.4-12.4); Monocytes Absolute Auto 0.6 X10*3/uL (0.1-1.2); Monocytes Percent Auto 3.2 % (2-11); Neutrophils Absolute Auto 18.9 X10*3/uL (2.0-8.3); Neutrophils Percent Auto 94.6 % (45-73); Platelet Count 193 X10*3/uL (160-400); Red Blood Count 4.09 X10*6/uL (4.60-5.80); Red Cell Distribution Width 13.3 % (11.0-16.0); SCAN SMEAR FLAG 1
[2020-03-23 07:26] LABS: Anion Gap 20 (12-20); Blood Urea Nitrogen 57 mg/dL (9-16); Calcium 7.9 mg/dL (8.4-10.2); Carbon Dioxide 25 mmol/L (22-29); Chloride 106 mmol/L (96-108); Creatinine Clr Calc Pharmacy 49.8; Estimated Glomerular Filt Rate > 60; Potassium 3.9 mmol/l (3.3-5.1); Sodium 147 mmol/L (135-145)
[2020-03-23 07:51] LABS: Glucose Fasting 434 mg/dL (60-99)
[2020-03-23 07:57] LABS: Glucose, Whole Blood 421 mg/dL (60-115)
[2020-03-23] MEDS: Insulin Lispro 100 UNIT/ML 3 ML VIAL SUBCUT ×2 (08:08→12:27)
[2020-03-23] MEDS: Mag&Al/Sim/Diphenhyd/Lidocaine 10 ML ORAL.SUSP PO ×4 (08:09→23:33)
[2020-03-23 09:15] LABS: SLIDE REVIEW VERIFIED
[2020-03-23 12:19] LABS: Glucose, Whole Blood 221 mg/dL (60-115)
[2020-03-23] MEDS: Enoxaparin Sodium 40 MG/0.4 ML SYRINGE SUBCUT ×2 (12:27→23:32)
[2020-03-23] MEDS: Dextrose 5 % 1,000 ML 50 ML IVCONT (12:27)
--- NOTE | 2020-03-23 15:04 | P.PNIM_ITS ---
Subjective Subjective Date of Service: 03/23/20 Interval History: the patient was seen and evaluated this morning Sitting in his chair, cannot verbalize Point CT his mouth which is swollen and has cracks No reported other overnight events. Systemic review: Nonverbal communicate Physical Exam Vital Signs: Vital Signs: Last Vital Signs Temp 96.9 F 03/23/20 14:01 Pulse 109 H 03/23/20 14:17 Resp 18 03/23/20 14:01 BP 114/72 03/23/20 14:01 Pulse Ox 91 L 03/23/20 14:01 Body Mass Index 20.2 Constitutional : Alert, difficult to evaluate orientation given the patient cannot verbalize, not in distress Neck : Normal inspection, Supple Cardiovascular : RRR, S1 S2, no lower extremity edema Respiratory : Good bilateral air entry, no crackles, wheezes or rhonchi Gastrointestinal: soft, lax, Normal bowel sounds, Non tender Skin : Warm/Dry, No rash, mouth ulcers and swelling, unable to speak ortho swallow Neurological : Alert , nonverbal, No focal deficit Objective Data Current Medications Generic Name Dose Route Start Last Admin Trade Name Artemioq PRN Reason Stop Dose Admin Acetaminophen 650 mg 03/13/20 13:45 03/21/20 00:31 Acetaminophen 325 Mg Tablet PO 650 mg Q12H PRN Administration HEADACHES , Acetaminophen/Butalbital/Caffeine 2 tab 03/13/20 13:45 03/19/20 05:09 Butalb/Acetamin/Caff 50/325/40 Tablet PO 2 tab Q6H PRN Administration headache Ascorbic Acid 500 mg 03/10/20 09:00 03/23/20 08:22 Ascorbic Acid 500 Mg Tablet PO Not Given DAILY [facility] Aspirin 81 mg 03/06/20 09:00 03/23/20 08:22 Aspirin Enteric Coated 81 Mg Tablet.Dr PO Not Given DAILY [facility] Benzocaine 1 lozenge 03/15/20 15:24 Throat Lozenge, Medicated Lozenge MUCOUS MEM Q2H PRN Sore Throat Calcium Carbonate/Cholecalciferol 250 mg 03/05/20 21:00 03/23/20 08:22 Calcium + Vitamin D 250 Mg Tablet PO Not Given BID [facility] Docusate Sodium 100 mg 03/05/20 17:25 Docusate Sodium 100 Mg Capsule PO BID PRN Constipation Enoxaparin Sodium 40 mg 03/09/20 10:15 03/23/20 12:27 Enoxaparin Sodium 40 Mg/0.4 Ml Syringe SUBCUT 40 mg Q12H [facility] Administration Ferrous Sulfate 324 mg 03/05/20 21:00 03/23/20 08:22 Ferrous Sulfate 324 Mg Tablet.Dr PO Not Given BID [facility] Fluticasone Propionate 2 spray 03/05/20 17:25 Fluticasone Propionate Nasal 16 Gm [place] NOSTRIL-B DAILY PRN Nasal Congestion Fluticasone Propionate 2 puff 03/05/20 20:00 03/23/20 08:22 Fluticasone Propionate 100 Mcg Blst.W.Dev INHALE Not Given RBID [facility] Guaifenesin/Dextromethorphan 5 ml 03/10/20 17:45 03/23/20 14:32 Guaifenesin Dm 100/10/5 Ml 5 Ml Syrup PO Not Given Q6H [facility] Dextrose 1,000 mls @ 50 mls/hr 03/23/20 11:45 03/23/20 12:27 D5w IVCONT 50 mls/hr .Q20H [facility] Administration Insulin Glargine 12 unit 03/23/20 21:00 Insulin Glargine,Hum.Rec.Anlog 100 Unit/Ml 10 Ml Vial SUBCUT BEDTIME [facility] Insulin Human Lispro 0 unit 03/09/20 16:30 03/23/20 12:27 Insulin Lispro 100 Unit/Ml 3 Ml Vial SUBCUT 6 unit QIDACHS [facility] Administration Protocol Lidocaine/Diphenhydr/Alum/Mg/Simeth 10 ml 03/19/20 13:20 03/23/20 14:01 Mag&Al/Sim/Diphenhyd/Lidocaine 10 Ml Oral.Susp PO 10 ml Q4H PRN Administration sore throat Protocol Lidocaine/Diphenhydr/Alum/Mg/Simeth 10 ml 03/22/20 04:38 03/23/20 08:09 Mag&Al/Sim/Diphenhyd/Lidocaine 10 Ml Oral.Susp PO 10 ml Q4H PRN Administration Pain, Mild (Pain Scale 1-3) Protocol Melatonin 6 mg 03/06/20 21:00 03/20/20 01:06 Melatonin 3 Mg Tablet PO 6 mg BEDTIME PRN Administration Insomnia Methylprednisolone Sodium Succinate 20 mg 03/23/20 09:00 03/23/20 08:08 Methylprednisolone Sod Succ/Pf 40 Mg/Ml Vial IVPUSH 20 mg DAILY [facility] Administration Metoprolol Tartrate 25 mg 03/05/20 21:00 03/23/20 08:22 Metoprolol Tartrate 25 Mg Tablet PO Not Given BID [facility] Protocol Metoprolol Tartrate 5 mg 03/23/20 01:29 03/23/20 13:59 Metoprolol Tartrate 5 Mg/5 Ml Vial IVPUSH 5 mg Q6H PRN Administration Heart Rate >100 Montelukast Sodium 10 mg 03/06/20 09:00 03/23/20 08:23 Montelukast Sodium 10 Mg Tablet PO Not Given DAILY [facility] Omeprazole 20 mg 03/06/20 06:30 03/23/20 01:13 Omeprazole 20 Mg Capsule.Dr PO Not Given DAILY@0630 [facility] Ondansetron HCl 4 mg 03/11/20 07:04 03/17/20 23:43 Ondansetron Hcl 4 Mg/2 Ml Vial IVPUSH 4 mg Q6H PRN Administration Nausea Pharmacy Consult 1 each 03/05/20 16:16 Consult Rx Perform Med Rec MISCELLANE ONCE PRN Consult order Pravastatin Sodium 10 mg 03/06/20 09:00 03/23/20 08:23 Pravastatin Sodium 10 Mg Tablet PO Not Given DAILY [facility] Saliva Substitute 1 spray 03/22/20 04:38 Dry Mouth [place] 30 Ml [place] MUCOUS MEM Q2H PRN Dry Mouth Sodium Chloride 3 ml 03/06/20 00:00 03/23/20 14:32 0.9 % Sodium Chloride Flush 3 Ml Syringe IVFLUSH Not Given QSHIFT [facility] Sodium Chloride 1 spray 03/13/20 13:43 03/21/20 04:00 Sodium Chloride 0.65 % Nasal 44 Ml Sprbtl NOSTRIL-B 1 spray Q1H PRN Administration Dry Nasal Passages Tiotropium [place] 1 puff 03/13/20 08:00 03/23/20 08:22 Tiotropium [place] 18 Mcg Cap.W.Dev INHALE Not Given RDAILY [facility] Zinc Sulfate 220 mg 03/12/20 09:00 03/23/20 08:23 Zinc Sulfate 220 Mg Capsule PO Not Given DAILY [facility] Labs CBC & Chem 7: 03/23/20 05:51 03/23/20 05:51 Microbiology Microbiology Results: Microbiology 03/08/20 06:39 Blood - Venous Blood Culture - Final No growth after 5 days. 12/27/20 06:39 Blood - Venous Blood Culture - Final No growth after 5 days. 03/06/20 19:07 Blood - Venous Blood Culture - Final No growth after 5 days. 03/06/20 19:07 Blood - Venous Blood Culture - Final No growth after 5 days. 03/05/20 13:44 Blood - Venous Blood Culture - Final No growth after 5 days. 03/05/20 13:29 Blood - Venous Blood Culture - Final No growth after 5 days. 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
[2020-03-23 16:53] LABS: Glucose, Whole Blood 120 mg/dL (60-115)
--- NOTE | 2020-03-23 19:55 | PC.NURSE ---
Alert, oriented to person and place, follows commands and is cooperative. 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 Patient switched from NRB back to HiFlow [place] to relieve mouth where patient is developing dry mouth, with bleeding and sores. Mouth care and use of magic mouthwash with good effect. Patient tolerated procedure multiple times throughout day. He requested drink, but coughed immediately with small spoonful of liquid. Speech saw patient later and day and recommended NPO due to aspiration and delay in swallowing. SaO2 low 90s% throughout day. OOB to chair for half of shift. Lay in prone position for 1/2 an hour with increase of oxygen to 100 %. Did desat to 80s% occasionally, but rebounded with repositioning or readjusting nasal canula. Not jessica to use ISPI. Tele ST most of day. IV metoprolol administered x 2 wtih some effect. dneies chest pain or palpitations, Hospitalist aware, continue to monitor.
[2020-03-23 20:58] LABS: Glucose, Whole Blood 125 mg/dL (60-115)
[2020-03-23] MEDS: 0.9 % Sodium Chloride Flush 3 ML SYRINGE IVFLUSH (23:32)
[2020-03-24] VITALS (22 sets, daily range): BP systolic 75–140; BP diastolic 46–86; PULSE 69–140; RESP 19–32; TEMP 35.7–36.8; O2SAT 85–100; BMI 20.2
--- NOTE | 2020-03-24 | ECG_ITS ---
Test Reason : evaluate Qt Blood Pressure : / mmHG Vent. Rate : 113 BPM Atrial Rate : 113 BPM P-R Int : 156 ms QRS Dur : 068 ms QT Int : 340 ms P-R-T Axes : 028 -37 081 degrees QTc Int : 466 ms Sinus tachycardia Possible Left atrial enlargement Left axis deviation Abnormal ECG compared to 24-Mar-2020 at 16:36:43 Premature atrial complexes are no longer Present Referred By: Ankur Queen Electronically Signed By:GOSIA FLAHERTY MD
[2020-03-24] MEDS: Metoprolol Tartrate 5 MG/5 ML VIAL IVPUSH ×2 (01:00→09:02)
[2020-03-24] MEDS: LORazepam 2 MG/ML VIAL 1 MG IVPUSH (01:00)
[2020-03-24 06:50] LABS: Hematocrit 42.6 % (42-52); Mean Corpuscular HGB Conc 32.9 g/dl (31.0-36.0); Mean Corpuscular Volume 97.5 fL (80-98); Red Blood Count 4.37 X10*6/uL (4.60-5.80); Red Cell Distribution Width 13.3 % (11.0-16.0); White Blood Count 19.1 X10*3/uL (4.8-10.8)
[2020-03-24 06:51] LABS: Mean Platelet Volume 12.8 fL (9.4-12.4); Platelet Count 163 X10*3/uL (160-400)
[2020-03-24 07:22] LABS: Anion Gap 26 (12-20); Blood Urea Nitrogen 64 mg/dL (9-16); Calcium 7.8 mg/dL (8.4-10.2); Carbon Dioxide 19 mmol/L (22-29); Chloride 108 mmol/L (96-108); Creatinine Clr Calc Pharmacy 36.9; Estimated Glomerular Filt Rate 58; Glucose Random 325 mg/dL (60-115); Potassium 4.6 mmol/l (3.3-5.1); Sodium 148 mmol/L (135-145)
[2020-03-24 08:02] LABS: Glucose, Whole Blood 345 mg/dL (60-115)
[2020-03-24] MEDS: Dextrose 5 % 1,000 ML 50 ML IVCONT (08:56)
[2020-03-24] MEDS: Insulin Lispro 100 UNIT/ML 3 ML VIAL SUBCUT ×3 (08:56→17:30)
[2020-03-24] MEDS: 0.9 % Sodium Chloride Flush 3 ML SYRINGE IVFLUSH ×2 (08:58→11:53)
[2020-03-24] MEDS: Insulin Glargine,Hum.rec.anlog 100 UNIT/ML 10 ML VIAL 8 UNIT SUBCUT (08:59)
[2020-03-24] MEDS: Enoxaparin Sodium 40 MG/0.4 ML SYRINGE SUBCUT (09:01)
[2020-03-24 11:26] LABS: Glucose, Whole Blood 325 mg/dL (60-115)
--- NOTE | 2020-03-24 12:02 | MHC.CLN ---
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
[2020-03-24 13:27] LABS: Albumin Level 2.6 g/dL (3.5-5.0); Magnesium 1.5 mg/dL (1.6-2.6); Phosphorus 4.5 mg/dL (2.7-4.5)
[2020-03-24] MEDS: Metoprolol Tartrate 5 MG in 0.9 % Sodium Chloride 50 ML 220 MG IV (14:50)
[2020-03-24] MEDS: Morphine Sulfate 2 MG/ML CARTRIDGE 1 MG IVPUSH (14:51)
--- NOTE | 2020-03-24 16:11 | HO.PM.IMPN ---
Subjective Subjective Date of Service: 03/24/20 Interval History: the patient was seen and evaluated this morning Sitting in his chair, cannot verbalize Point CT his mouth which is swollen and has cracks No reported other overnight events. Systemic review: Nonverbal communicate Physical Exam Vital Signs: Vital Signs: Last Vital Signs Temp 97.8 F 03/24/20 15:31 Pulse 110 H 03/24/20 15:31 Resp 20 03/24/20 15:37 BP 110/70 03/24/20 15:31 Pulse Ox 100 03/24/20 15:31 Body Mass Index 20.2 Constitutional : Alert, difficult to evaluate orientation given the patient cannot verbalize, not in distress Neck : Normal inspection, Supple Cardiovascular : RRR, S1 S2, no lower extremity edema Respiratory : Decreased bilateral air entry, mild respiratory distress Gastrointestinal: soft, lax, Normal bowel sounds, Non tender Skin : Warm/Dry, No rash, mouth ulcers and swelling, unable to speak with oral swelling Neurological : Alert , nonverbal, No focal deficit Objective Data Current Medications Generic Name Dose Route Start Last Admin Trade Name Artemioq PRN Reason Stop Dose Admin Acetaminophen 650 mg 03/13/20 13:45 03/21/20 00:31 Acetaminophen 325 Mg Tablet PO 650 mg Q12H PRN Administration HEADACHES , Acetaminophen/Butalbital/Caffeine 2 tab 03/13/20 13:45 03/19/20 05:09 Butalb/Acetamin/Caff 50/325/40 Tablet PO 2 tab Q6H PRN Administration headache Ascorbic Acid 500 mg 03/10/20 09:00 03/24/20 08:48 Ascorbic Acid 500 Mg Tablet PO Not Given DAILY [facility] Aspirin 81 mg 03/06/20 09:00 03/24/20 08:48 Aspirin Enteric Coated 81 Mg Tablet.Dr PO Not Given DAILY ACE Benzocaine 1 lozenge 03/15/20 15:24 Throat Lozenge, Medicated Lozenge MUCOUS MEM Q2H PRN Sore Throat Calcium Carbonate/Cholecalciferol 250 mg 03/05/20 21:00 03/24/20 08:48 Calcium + Vitamin D 250 Mg Tablet PO Not Given BID ACE Docusate Sodium 100 mg 03/05/20 17:25 Docusate Sodium 100 Mg Capsule PO BID PRN Constipation Enoxaparin Sodium 40 mg 03/09/20 10:15 03/24/20 09:01 Enoxaparin Sodium 40 Mg/0.4 Ml Syringe SUBCUT 40 mg Q12H ACE Administration Ferrous Sulfate 324 mg 03/05/20 21:00 03/24/20 08:48 Ferrous Sulfate 324 Mg Tablet.Dr PO Not Given BID ACE Fluticasone Propionate 2 spray 03/05/20 17:25 Fluticasone Propionate Nasal 16 Gm Alborn NOSTRIL-B DAILY PRN Nasal Congestion Fluticasone Propionate 2 puff 03/05/20 20:00 03/24/20 08:09 Fluticasone Propionate 100 Mcg Blst.W.Dev INHALE Not Given RBID [facility] Guaifenesin/Dextromethorphan 5 ml 03/10/20 17:45 03/24/20 11:46 Guaifenesin Dm 100/10/5 Ml 5 Ml Syrup PO Not Given Q6H [facility] Multivitamins 21 ml/ Trace 960 mls @ 40 mls/hr 03/24/20 18:00 Metals 2 ml/ Amino Acids/ IV Electrolytes/Dextrose DAILY@1800 [facility] Metoprolol Tartrate 5 mg/ 55 mls @ 220 mls/hr 03/24/20 15:00 03/24/20 15:05 Sodium Chloride IV Infused Q6H [facility] Infusion Insulin Glargine 12 unit 03/23/20 21:00 03/23/20 21:10 Insulin Glargine,Hum.Rec.Anlog 100 Unit/Ml 10 Ml Vial SUBCUT Not Given BEDTIME [facility] Insulin Human Lispro 0 unit 03/09/20 16:30 03/24/20 11:53 Insulin Lispro 100 Unit/Ml 3 Ml Vial SUBCUT 10 unit QIDACHS [facility] Administration Protocol Lidocaine/Diphenhydr/Alum/Mg/Simeth 10 ml 03/19/20 13:20 03/23/20 14:01 Mag&Al/Sim/Diphenhyd/Lidocaine 10 Ml Oral.Susp PO 10 ml Q4H PRN Administration sore throat Protocol Lidocaine/Diphenhydr/Alum/Mg/Simeth 10 ml 03/22/20 04:38 03/23/20 08:09 Mag&Al/Sim/Diphenhyd/Lidocaine 10 Ml Oral.Susp PO 10 ml Q4H PRN Administration Pain, Mild (Pain Scale 1-3) Protocol Lidocaine/Diphenhydr/Alum/Mg/Simeth 10 ml 03/23/20 15:15 03/24/20 14:57 Mag&Al/Sim/Diphenhyd/Lidocaine 10 Ml Oral.Susp PO Not Given Q4H [facility] Protocol Melatonin 6 mg 03/06/20 21:00 03/20/20 01:06 Melatonin 3 Mg Tablet PO 6 mg BEDTIME PRN Administration Insomnia Methylprednisolone Sodium Succinate 20 mg 03/23/20 09:00 03/24/20 09:00 Methylprednisolone Sod Succ/Pf 40 Mg/Ml Vial IVPUSH 20 mg DAILY [facility] Administration Metoprolol Tartrate 25 mg 03/05/20 21:00 03/24/20 08:49 Metoprolol Tartrate 25 Mg Tablet PO Not Given BID [facility] Protocol Montelukast Sodium 10 mg 03/06/20 09:00 03/24/20 08:51 Montelukast Sodium 10 Mg Tablet PO Not Given DAILY [facility] Morphine Sulfate 1 mg 03/24/20 13:51 03/24/20 14:51 Morphine Sulfate 2 Mg/Ml Cartridge IVPUSH 1 mg Q4H PRN Administration Shortness of Breath Omeprazole 20 mg 03/06/20 06:30 03/24/20 05:31 Omeprazole 20 Mg Capsule.Dr PO Not Given DAILY@0630 [facility] Ondansetron HCl 4 mg 03/11/20 07:04 03/17/20 23:43 Ondansetron Hcl 4 Mg/2 Ml Vial IVPUSH 4 mg Q6H PRN Administration Nausea Pharmacy Consult 1 each 03/05/20 16:16 Consult Rx Perform Med Rec MISCELLANE ONCE PRN Consult order Pravastatin Sodium 10 mg 03/06/20 09:00 03/24/20 08:51 Pravastatin Sodium 10 Mg Tablet PO Not Given DAILY [facility] Saliva Substitute 1 spray 03/22/20 04:38 Dry Mouth Alborn 30 Ml Alborn MUCOUS MEM Q2H PRN Dry Mouth Sodium Chloride 3 ml 03/06/20 00:00 03/24/20 11:53 0.9 % Sodium Chloride Flush 3 Ml Syringe IVFLUSH 3 ml QSHIFT [facility] Administration Sodium Chloride 1 spray 03/13/20 13:43 03/21/20 04:00 Sodium Chloride 0.65 % Nasal 44 Ml Sprbtl NOSTRIL-B 1 spray Q1H PRN Administration Dry Nasal Passages Tiotropium [place] 1 puff 03/13/20 08:00 03/24/20 08:51 Tiotropium [place] 18 Mcg Cap.W.Dev INHALE Not Given RDAILY [facility] Zinc Sulfate 220 mg 03/12/20 09:00 03/24/20 08:51 Zinc Sulfate 220 Mg Capsule PO Not Given DAILY [facility] Labs CBC & Chem 7: 03/24/20 05:40 03/24/20 05:40 Microbiology Microbiology Results: Microbiology 03/08/20 06:39 Blood - Venous Blood Culture - Final No growth after 5 days. 03/08/20 06:39 Blood - Venous Blood Culture - Final No growth after 5 days. 03/06/20 19:07 Blood - Venous Blood Culture - Final No growth after 5 days. 03/06/20 19:07 Blood - Venous Blood Culture - Final No growth after 5 days. 03/05/20 13:44 Blood - Venous Blood Culture - Final No growth after 5 days. 03/05/20 13:29 Blood - Venous Blood Culture - Final No growth after 5 days. Assessment and Plan (1) Acute respiratory failure with hypoxia: Status: Acute (2) Metabolic acidosis: Status: Acute (3) Hyponatremia: Status: Acute (4) Pneumonia: Status: Acute (5) COVID-19: Status: Acute Assessment and Plan: 85M presented with lethargy, sob Acute hypoxic respiratory failure secondary to COVID pneumonia On high-flow oxygen wean steroids Completed course of antibiotics Continue intermediate dose Lovenox Status post convalescent plasma Moderate protein malnutrition Decreased oral intake Patient has not been eating for 5 days To start peripheral nutrition Monitor electrolyte Mild ulcers Difficulty swallowing GLOBAL PROFESSIONAL recommended NPO for now To use magic mouth Oral hygiene Hypernatremia Sodium 148 today D5 held was starting the peripheral nutrition Monitor sodium level Acute kidney injury Resolved Diabetes insulin Asthma On IV steroid, Continue Flovent, singular, and Spiriva hyponatremia resolved DVT PPx Lovenox
[2020-03-24 16:32] LABS: Glucose, Whole Blood 169 mg/dL (60-115)
[2020-03-24] MEDS: Fluticasone Propionate 100 MCG BLST.W.DEV 2 PUFF INHALE (19:10)
[2020-03-24 19:52] LABS: Glucose, Whole Blood 141 mg/dL (60-115)
--- NOTE | 2020-03-24 20:11 | PM.EVENT ---
Event Note Date of Service: 03/24/20 Event Note: 85-year-old male admitted for COVID-19 hypoxia A rapid response was called on this patient due to hypoxia, patient on high-flow 100% as well as non-rebreather satting 60%. We repositioned the patient and will only able to bring up his oxygen to 80%. Call was made to ICU and patient will be placed on CPAP and sent to ICU for further management.
--- NOTE | 2020-03-24 20:27 | PC.NURSE ---
Pt unable to maintain O2 sat on highflow 55L @100%. Pt is agitated and removing O2 frequently. When O2 is applied pt unable to maintain sats. Provider called to bed side to assess pt. O2 adjusted, awaiting provider orders. Pt desat to 40s. Rapid response called, provider to bedside, order for pt to be transfered to ICU. Report called to RN, pt transported with RN and resp therapy. See flow sheet for full assessments
--- NOTE | 2020-03-24 20:42 | P.PNCC_ITS ---
Subjective Subjective Date of Service: 03/24/20 <KRIS Clayton - Last Filed: 03/24/20 23:44> 03/25/20 <Jabari James - Last Filed: 03/25/20 19:07> Interval History: HPI/clinical presedent: Patient with underlying history of COPD, hypertension, diabetes, hyperlipidemia had presented to the emergency room on 03/05/2020 with complaints of 4 days worth of generalized body aches, malaise, fever, chills, chest discomfort, nausea, vomiting. Patient was proven to be COVID positive. Had some degree of renal failure, V/Q scan had been done due to elevated D-dimer and this has showed no concerns for PE. Patient was given fluids as he has some degree of dehydration and hyponatremia. Has been kept on high-flow O2 and non-rebreather mask for several days. Overall the patient had been doing well until today he desatted quickly as low as 60% despite of repositioning and adjustment on the patient's FiO2. Patient appeared to be struggling to breathe, use accessory muscles, so morphine was given with some improvement of his respiratory ability; the patient was quickly then put on CPAP and transferred to the ICU. ROS: UNABLE TO OBTAIN Past Medical History: Constipation COPD Hypertension Diabetes GERD Hyperlipidemia Past Surgical History: Unknown Family history: Unknown Social History: LIVES AT HOME unknown details, called the contact but is only a friend, will try to get the number of patient's daughter Jazmine CODE STATUS: FULL CODE Allergies: Penicillin Home Medications: Please see med rec Sespsis focused PHYSICAL EXAM done at 2000 pm VS: 83/48, heart rate 130, respirations 30, O2 sat 84% on CPAP of 15 with FiO2 of 100 General: Alert, following basic commands. Using accessory muscles, appeears to be in distress. Skin: Intact, no lesions, edema, erythema, clubbing or cyanosis. No ulcers. HEENT: Head is normocephalic, atraumatic, pupils equal round reactive to light accommodation bilaterally. Extraocular movements appear intact. Buccal mucosa is moist, Neck is supple without lymphadenopathy. Cardiac: Tachycardic 130 beats per minute, no murmurs, rubs, gallops. Pulmonary: Diminished lung sounds bilaterally with minimal expiratory wheezing. Abdomen: Protuberant, positive bowel sounds in all 4 quadrants. Soft, nontender, no rebound or guarding. Musculoskeletal: Moving all 4 extremities on his own, there is no crepitus or tenderness. The strength is 5/5 bilaterally and throughout all 4 extremities. Gait not assessed at this point. Neurologic: As above, cranial nerves 2-12 are grossly intact. No focal deficits noted. Motor strength as above. Vascular: 2+ pulses upper and lower extremities distally, less than 2 sec capillary refill of fingers and toes SIGNIFICANT LABORATORY DATA: White blood cells 19.1, hemoglobin 14, hematocrit 42.6, platelet count 163, sodium 148, potassium 4.6, chloride 108, carbon dioxide 19, BUN 64, creatinine 1.20. Magnesium 1.5 REVIEW OF IMAGES: Chest x-ray on 03/14/2020 IMPRESSION: Interval worsening of bilateral infiltrates. This is nonspecific and could be cardiogenic however a worsening infectious/inflammatory process cannot be excluded. Correlate clinically. EKG REVIEW: EKG from 03/05/2020 shows sinus tachycardia with PA feces, left axis deviation. Rate 115 beats per minute. QTC 448. No comparison. ASSESSMENT AND PLAN: 1. Acute hypoxic respiratory failure in the setting of COVID-19 infection 2. COVID-19 infection 3. Acute kidney injury likely due to insensible losses in volume depletion 4. Reactive tachycardia 5. Hypo magnesemia 6. Hypernatremia likely due to volume depletion 7. History of diabetes currently stable 8. Hypoalbuminemia rule out protein calorie malnutrition syndrome 9. Hypotension and tachycardia appears reactive but no Evidence of SEPSIS for now 10. Steroid induced leukocytosis Transferred to ICU, place him on CPAP, ABG, beta-saulo to control heart rate, replace magnesium, D5 half-normal saline, insulin protocol, resume other medications and repeat biomarkers in the morning. GI PROPHYLAXIS: Omeprazole if able to take po DVT PROPHYLAXIS: On Lovenox subQ Addendum: At 10:00 p.m., the patient continued to decompensate, his oxygen saturation was below 60 despite of CPAP. The patient appeared to be struggling to breathe and at this point I had made decision to intubate him. RSI protocol followed, patient was preoxygenated, backup airway available. Procedure went well. Please see note for details. Critical care time used for critical evaluation of this patient, diagnosis, treatment and coordination of care, review her records and documentation TOTAL CRITICAL CARE TIME 90 MIN besides any procedures performed on this patient. Patient's care was discussed in detail with Dr. James. He is aware of all the above as well as the plan of care for this patient. <KRIS Clayton - Last Filed: 03/24/20 23:44> Physical Exam Vital Signs: Vital Signs: Last Vital Signs Temp 98.0 F 03/24/20 19:03 Pulse 112 H 03/24/20 19:03 Resp 19 03/24/20 19:03 BP 126/71 03/24/20 19:03 Pulse Ox 98 03/24/20 19:03 Body Mass Index 20.2 <KRIS Clayton - Last Filed: 03/24/20 23:44> Objective Data Labs CBC & Chem 7: : 03/25/20 05:13 03/25/20 05:13 <KRIS Clayton - Last Filed: 03/24/20 23:44> Labs: Laboratory Results - last 24 hr 03/23/20 03/24/20 03/24/20 20:47 05:40 05:40 WBC 19.1 H RBC 4.37 L Hgb 14.0 Hct 42.6 MCV 97.5 MCH 32.0 MCHC 32.9 RDW 13.3 Plt Count 163 MPV 12.8 H Absolute Nucleated RBC 0.000 Nucleated RBC % (auto) 0.0 Sodium 148 H Potassium 4.6 Chloride 108 Carbon Dioxide 19 L Anion Gap 26 H BUN 64 H Creatinine 1.20 Estim Creat Clear Calc 36.9 Estimated GFR 58 POC Glucose 125 H Random Glucose 325 H D Calcium 7.8 L Phosphorus 4.5 Magnesium 1.5 L Albumin 2.6 L D 03/24/20 03/24/20 03/24/20 07:35 10:53 16:20 WBC RBC Hgb Hct MCV MCH MCHC RDW Plt Count MPV Absolute Nucleated RBC Nucleated RBC % (auto) Sodium Potassium Chloride Carbon Dioxide Anion Gap BUN Creatinine Estim Creat Clear Calc Estimated GFR POC Glucose 345 H 325 H 169 H Random Glucose Calcium Phosphorus Magnesium Albumin 03/24/20 19:47 WBC RBC Hgb Hct MCV MCH MCHC RDW Plt Count MPV Absolute Nucleated RBC Nucleated RBC % (auto) Sodium Potassium Chloride Carbon Dioxide Anion Gap BUN Creatinine Estim Creat Clear Calc Estimated GFR POC Glucose 141 H Random Glucose Calcium Phosphorus Magnesium Albumin <KRIS Clayton - Last Filed: 03/24/20 23:44> Microbiology Microbiology Results: Microbiology 03/08/20 06:39 Blood - Venous Blood Culture - Final No growth after 5 days. 03/08/20 06:39 Blood - Venous Blood Culture - Final No growth after 5 days. 03/06/20 19:07 Blood - Venous Blood Culture - Final No growth after 5 days. 03/06/20 19:07 Blood - Venous Blood Culture - Final No growth after 5 days. 03/05/20 13:44 Blood - Venous Blood Culture - Final No growth after 5 days. 03/05/20 13:29 Blood - Venous Blood Culture - Final No growth after 5 days. <KRIS Clayton - Last Filed: 03/24/20 23:44> Progress Note: A&P Time Spent With Patient Time: Total time spent is greater than 50% in coordination of care (as docum ented) at patient's floor/unit and/or counseling patient: <KRIS Clayton - Last Filed: 03/24/20 23:44> Total time spent with greater than 50% in coordination of care (as documented) at patient's floor/unit and/or counseling patient:: 90 <KRIS Clayton - Last Filed: 03/24/20 23:44>
[2020-03-24 20:52] LABS: Pt Ventilation O2% 100%
[2020-03-24 20:57] LABS: ABG PCO2 39 mmhg (32-45); pH ABG 7.47 (7.35-7.45)
[2020-03-24 20:58] LABS: Base Excess ABG 3.7; HCO3 ABG 28 mmol/l (22-26); Oxygen Saturation ABG 84.8 %
[2020-03-24 21:03] LABS: Blood Gas Serial # 5396
[2020-03-24 21:04] LABS: PO2 ABG 43 mmhg (83-108)
[2020-03-24] MEDS: Metoprolol Tartrate 5 MG in 0.9 % Sodium Chloride 50 ML 230 MG IV (21:15)
[2020-03-24] MEDS: fentaNYL citrate/PF 100 MCG/2 ML VIAL 50 MCG IVPUSH (21:45)
[2020-03-24] MEDS: Succinylcholine Chloride 200 MG/10 ML VIAL 80 MG IVPUSH (22:00)
[2020-03-24] MEDS: Etomidate 20 MG/10 ML VIAL IVPUSH (22:02)
--- NOTE | 2020-03-24 22:07 | XR_ITS ---
EXAMINATION: XR CHEST CLINICAL INFORMATION: ET and OG tube placement confirmation COMPARISON: 03/14/2020 TECHNIQUE: 1 view of the chest was obtained. FINDINGS: ET tube 4 cm above the winifred. Left IJ line with tip in distal SVC. An orogastric tube is not seen. The stomach is distended with gas. Heart size normal. Diffuse ill-defined airspace opacity is seen. No pleural effusions detected. XR/XR chest 1V IMPRESSION: 1. ET tube in good position as is the left IJ line. 2. Orogastric tube not visualized. If indeed present, could this be coiled in the oropharynx? The stomach demonstrates gaseous distention. 3. Ill-defined patchy bilateral airspace disease.
[2020-03-24] MEDS: propofoL 1,000 MG/100 ML VIAL 13.68 MG IVCONT (22:15)
--- NOTE | 2020-03-24 22:49 | W.PM.CCHP ---
Procedures Abscess I/D Consent for Procedure: Emergent-no informed consent obtained <KRIS Clayton - Last Filed: 03/24/20 22:53> Intubation Intubation Comments: RSI protocol followed. no complications <KRIS Clayton - Last Filed: 03/24/20 22:53> Consent for Procedure: Emergent-no informed consent obtained <KRIS Clayton - Last Filed: 03/24/20 22:53> Time out performed: Yes <KRIS Clayton - Last Filed: 03/24/20 22:53> Sedative: etomidate <KRIS Clayton - Last Filed: 03/24/20 22:53> Mg given: 20 <KRIS Clayton - Last Filed: 03/24/20 22:53> Paralytic: succinylcholine <KRIS Clayton - Last Filed: 03/24/20 22:53> Mg given: 80 <KRIS Clayton - Last Filed: 03/24/20 22:53> Laryngoscope: fiber optic video scope <KRIS Clayton - Last Filed: 03/24/20 22:53> Assist device used: Bougie <KRIS Clayton - Last Filed: 03/24/20 22:53> ET tube size: 7.5 <KRIS Clayton - Last Filed: 03/24/20 22:53> ET tube uncuffed: Yes <KRIS Clayton - Last Filed: 03/24/20 22:53> Tube secured depth (cm): 22 <KRIS Clayton - Last Filed: 03/24/20 22:53> Tube secured location: lips <KRIS Clayton - Last Filed: 03/24/20 22:53> Tube placement confirmation: visualized tube passing through cords, equal breath sounds bilaterally and confirmation by capnometry <KRIS Clayton - Last Filed: 03/24/20 22:53> Patient tolerated procedure: well <KRIS Clayton - Last Filed: 03/24/20 22:53> Intubation complications: none <KRIS Clayton - Last Filed: 03/24/20 22:53>
--- NOTE | 2020-03-24 22:55 | W.PM.CCHP ---
Procedures Central Line Placement A quick time-out was made for clarification and proper patient identification, patient was positioned, landmarks were identified, US used to locate a large compressible IJ. The left neck was widely prepped and draped in a full sterile fashion. Ultrasound was used to locate again the left IJ, the vein was cannulated on the 1st pass with an 18 gauge thin needle, dark nonpulsatile blood return was obtained. The wire was threaded, a small incision was made at its base and dilator inserted. A triple-lumen central venous catheter was advanced into the vein up to the hub without problems, wired was removed. Ports had good blood return and flushed x3. The catheter was secured with 3 sutures at 3 sites, a Biopatch and dry sterile dressing were applied.Post procedure chest x-ray showed the line to be in good position without pneumothorax. No bleeding or complications noted.: Consent for Procedure: Emergent-no informed consent obtained <KRIS Clayton - Last Filed: 03/24/20 22:56> Time out performed: Yes <KRIS Clayton Last Filed: 03/24/20 22:56> Sterile Technique Used: Yes <KRIS Clayton Last Filed: 03/24/20 22:56> Patient placed on monitor/pulse ox: Yes <KRIS Clayton Last Filed: 03/24/20 22:56> MD prep: mask, gown and gloves <KRIS Clayton Last Filed: 03/24/20 22:56> Ultrasound used for placement: Yes <KRIS Clayton Last Filed: 03/24/20 22:56> Central line lumen inserted: triple <KRIS Clayton Last Filed: 03/24/20 22:56> Post procedure: sutured in place, good blood return, all ports aspirated, flushed, capped and sterile dressing applied <KRIS Clayton Last Filed: 03/24/20 22:56> Post procedure x-ray: tip of catheter in good position and no pneumothorax seen <KRIS Clayton Last Filed: 03/24/20 22:56> Patient tolerated procedure: well <KRIS Clayton - Last Filed: 03/24/20 22:56> Complications: none <KRIS Clayton - Last Filed: 03/24/20 22:56>
[2020-03-24] MEDS: Magnesium Sulfate/H2O 2 GM/50 ML PIGGYBACK IV (23:51)
[2020-03-24] MEDS: Dextrose 5 % and 0.45 % NaCl 1,000 ML 50 ML IVCONT (23:56)
[2020-03-25] VITALS (25 sets, daily range): BP systolic 61–186; BP diastolic 39–92; PULSE 97–131; RESP 13–34; TEMP 37.5–39.5; O2SAT 60–98; BMI 20.2
[2020-03-25] MEDS: Insulin Lispro 100 UNIT/ML 3 ML VIAL SUBCUT ×2 (00:23→08:42)
[2020-03-25] MEDS: Insulin Glargine,Hum.rec.anlog 100 UNIT/ML 10 ML VIAL 12 UNIT SUBCUT (00:25)
--- NOTE | 2020-03-25 00:51 | PC.NURSE ---
Patient arrived to the unit at approximately 2029 was placed on CPAP at 100%, ABG's ordered and obtained. Patient responsive to name but unable to answer questions. Patient was incontinent of urine was cleaned and given a bed change which he tolerated well. Patient HR ST in 130's with occasional PVC's, KRIS Coulter notified and ordered Metoprolol 5mg IV SBP 120-130's. At approximately 0 patient began to decline RR progressively increased from 20's to 30's patient using accessory muscles and difficulty getting sats 90% down to 50%. RT at the bedside, began ambu bagging patient and PA notified and decision was made to intubate. PA ordered 50mcg Fentanyl given with little effectiveness. 2199 Patient given 80mg of succs and 20mg etomidate and was intubated at the bedside. ETT 7.5, 22cm bebo positive color change on capnography, lung sounds heard in both left and right lung. Sats improved 92% Vent settings AC:14, TV:450, Peep:6 FiO2:100% Sats 92%. BP Low 53/30 started on levophed 0.5mcg/kg/hr and propofol at 30mcg/kg/hr. Patient was having high peak pressures so Propofol incresed to 40mcg. PA placed TLC to L-IJ, TLC and ETT confirmed with CXR. Patient had no inline secretions but had large amount of thick tenacious oral secretions and blood. This RN unable to place OG tube at that time. Skin when patient was transferred from unit has scattered bruising, fungal to groin, scrotum dermatitis/ sloughing to buttocks with left 1x1cm to Left buttocks. Meatus was crusted and excoriated. Cleaned and Unger catheter placed.
[2020-03-25 01:08] LABS: Glucose, Whole Blood 184 mg/dL (60-115)
[2020-03-25] MEDS: propofoL 1,000 MG/100 ML VIAL 13.68 MG IVCONT (01:11)
[2020-03-25] MEDS: 0.9 % Sodium Chloride Flush 3 ML SYRINGE IVFLUSH ×3 (01:58→15:41)
[2020-03-25] MEDS: Metoprolol Tartrate 5 MG in 0.9 % Sodium Chloride 50 ML 220 MG IV ×2 (04:35→08:33)
[2020-03-25] MEDS: Mag&Al/Sim/Diphenhyd/Lidocaine 10 ML ORAL.SUSP PO (04:36)
[2020-03-25] MEDS: propofoL 1,000 MG/100 ML VIAL 17.1 MG IVCONT (05:39)
[2020-03-25 06:05] LABS: Basophils Percent Auto 0.1 % (0-2); Lymphocytes Percent Auto 2.4 % (20-40); MANUAL DIFF FLAG SCAN; Mean Corpuscular HGB Conc 31.8 g/dl (31.0-36.0); Mean Corpuscular Hemoglobin 31.8 pg (27.0-33.0); NRBC Pct Auto 0.1 /100WBC (0.0-0.2); SCAN SMEAR FLAG 1
[2020-03-25 06:07] LABS: Hematocrit 40.2 % (42-52); Hemoglobin 12.8 g/dl (14.0-18.0); Imm Gran Abs Auto 0.28 X10*3/uL (0.00-0.03); Imm Gran Pct Auto 1.4 % (0.0-0.4); Lymphocytes Absolute Auto 0.5 X10*3/uL (1.2-4.9); Monocytes Absolute Auto 1.3 X10*3/uL (0.1-1.2); Monocytes Percent Auto 6.1 % (2-11); Neutrophils Absolute Auto 18.6 X10*3/uL (2.0-8.3); PLT CLUMP 1; Red Blood Count 4.02 X10*6/uL (4.60-5.80); Red Cell Distribution Width 13.9 % (11.0-16.0)
[2020-03-25 06:10] LABS: PLT ABN DIST 1
[2020-03-25 06:16] LABS: Base Excess VBG -0.9 mmol/L; HCO3 VBG 27 mmol/L; PCO2 VBG 56 mmhg; PO2 VBG 38 mmhg; pH VBG 7.29 (7.32-7.43)
[2020-03-25 06:17] LABS: Oxygen Saturation VBG 62.6 %
[2020-03-25 06:38] LABS: Anion Gap 17 (12-20); Blood Urea Nitrogen 83 mg/dL (9-16); C Reactive Protein 5.88 mg/dL (< or = 0.50); Calcium 7.4 mg/dL (8.4-10.2); Carbon Dioxide 27 mmol/L (22-29); Chloride 106 mmol/L (96-108); Creatinine Clr Calc Pharmacy 20.8; Estimated Glomerular Filt Rate 30; Glucose Random 390 mg/dL (60-115); Magnesium 2.1 mg/dL (1.6-2.6); Platelet Count 144 X10*3/uL (160-400); Potassium 4.4 mmol/l (3.3-5.1); SLIDE REVIEW VERIFIED; Sodium 146 mmol/L (135-145); White Blood Count 20.6 X10*3/uL (4.8-10.8)
[2020-03-25 06:48] LABS: D Dimer 779 NG/ML
[2020-03-25 06:50] LABS: Ferritin 1217 ng/mL (20-250)
[2020-03-25 07:16] LABS: Procalcitonin 0.62 ng/mL
--- NOTE | 2020-03-25 08:06 | CA_ITS ---
Transthoracic Echocardiogram Patient (Last, First, Middle): Arian Kelly, Gender: Male Date of : 1935 Age: 85 Procedure Date: 03/25/2020 Procedure Type: Transthoracic Echocardiogram Location: ICU Height: 167.64 cm Weight: 56.7 kg BSA: 1.64 m2 Heart Rate: bpm BP: 85 / 56 mmHg Mill Oiler: CALVIN Referring MD: Jabari James Instrumentation Technologist: Jerel Purcell MD Symptoms: RV LV fxn, IVC/volume status Study Quality: Technically Difficult ECG Rhythm: Sinus tachycardia Conclusions: - 1. Technically extremely limited study and only mostly subcostal views were obtained next 2. LV systolic function some views appears to be normal with LVEF of 55-60% 3. Right-sided chambers appear to be of normal size with normal RV function 4. IVC is not dilated with blunted in collapsibility due to patient being on mechanical ventilation 5. Small amount of pericardial effusion noted Findings Left Ventricle The left ventricle was not well visualized. The visually estimated ejection fraction is between 55-60%. Diastolic function is indeterminate on the basis of available data. Right Ventricle Normal right ventricular cavity size and systolic function. Atria The left atrium was not well visualized. There is no evidence of interatrial shunt. The right atrium is normal in size. Aortic Valve The aortic valve was not well visualized. Mitral Valve The mitral valve was not well visualized. Pulmonic Valve The pulmonic valve was not well visualized. Tricuspid Valve Likely normal tricuspid valve structure and function. There is mild to moderate tricuspid valve regurgitation. Venous The inferior vena cava is normal in size and collapses less than 50% with inspiration. Pericardium/Pleural There is a small loculated pericardial effusion overlying the right ventricle and right atrium. Prior Study Comparison No prior study available for comparison. Measurements 2D Linear Measurements IVSd: 1.01 0.6-0.9/0.6-1.0 cm LVIDd: 3.64 3.9-5.3/4.2-5.9 cm LVIDd Index: 2.22 2.4-3.2/2.2-3.1 cm/m2 LVIDs: 2.43 2.0-3.6 cm LVPWd: 1.08 0.7-1.1 cm LV Mass: 145.50 67-162/88-224 g LV Mass Index: 88.72 43-95/49-115 g/m2 Tricuspid Valve TR Pk Felix: 2.95 TR Pk Grad: 35.00 Updated in Other Vendor System with Status of Final Jerel Purcell MD electronically signed on 03/25/2020 1:48:02 PM with status of Final
[2020-03-25] MEDS: Enoxaparin Sodium 40 MG/0.4 ML SYRINGE SUBCUT (08:34)
--- NOTE | 2020-03-25 09:02 | MHC.SLORD ---
Per EMR, pt transferred to ICU due to severe hypoxia and intubated last night. Please re-refer for bedside swallow evaluation 24-48 hours post extubation. Name: Arian Kelly Date of : 1935 Age: 85 Date of Registration: 03/05/20 Speech Language Pathology Order Status:
--- NOTE | 2020-03-25 09:08 | MHC.CM.PN ---
dc plan for patient has been to return home c [employer]. however, now pt is in the ICU intubated, sedated on mech. vent. the dc plan may change as pt progresses through hospitalization. cm to assess pt dc needs on a daily basis. cm to cont. to follow.
[2020-03-25 09:12] LABS: Glucose, Whole Blood 345 mg/dL (60-115)
[2020-03-25] MEDS: Cisatracurium Besylate 20 MG/10 ML VIAL 10 MG IVPUSH ×2 (09:56→13:30)
[2020-03-25] MEDS: Albumin Human 25 % 100 ML IV ×3 (09:59→13:20)
[2020-03-25] MEDS: Esmolol HCl/NaCl Iso 2,500 MG/250 ML IV.SOLN 8.55 MG IVCONT (10:23)
--- NOTE | 2020-03-25 10:29 | PM.PNNEP ---
Subjective Subjective Date of Service: 03/25/20 Interval history: HPI/clinical presedent: LAst seen by renal servic 03/13/19 but now acute change in stqtus with resp ffailure req ixfer to ICU and inubation and hypotension along with LEI and poor UOP. history of COPD, hypertension, diabetes, hyperlipidemia had presented to the emergency room on 03/05/2020 with complaints of 4 days worth of generalized body aches, malaise, fever, chills, chest discomfort, nausea, vomiting. Patient was proven to be COVID positive. Had some degree of renal failure, V/Q scan had been done due to elevated D-dimer and this has showed no concerns for PE. Patient was given fluids as he has some degree of dehydration and hyponatremia. Has been kept on high-flow O2 and non-rebreather mask for several days. Overall the patient had been doing well until today he desatted quickly as low as 60% despite of repositioning and adjustment on the patient's FiO2. Patient appeared to be struggling to breathe, use accessory muscles, so morphine was given with some improvement of his respiratory ability; the patient was quickly then put on CPAP and transferred to the ICU. Physical Exam Vital Signs: Vital Signs: Last Vital Signs Temp 102.7 F H 03/25/20 09:56 Pulse 131 H 03/25/20 09:56 Resp 13 03/25/20 09:56 BP 78/56 L 03/25/20 09:56 Pulse Ox 88 L 03/25/20 09:56 Body Mass Index 20.2 Const: Other: on vent BS bilat abd soft tr edema Orientation/consciousness: oriented to person, oriented to place, oriented to time and patient oriented x3 HENMT: Head: Yes normal to inspection, Yes No palpable skull fracture present, Yes normocephalic and Yes atraumatic Ears: hearing grossly normal bilaterally General nose exam: Abnormal external nose present and Nasal discharge present Mouth: Normal oral and palatal mucosa present Eyes: Other: Negative for photophobia. General: appearance normal, both eyes and all related structures Pupils: Equal, round and reactive pupils present Neck: Neck: Yes normal visual inspection, Yes full ROM, Yes no lymphadenopathy, Yes no meningeal signs, Yes trachea midline, Yes supple and No tender Chest: Chest palpation & inspection: normal inspection of the chest and normal palpation of entire chest wall Resp: Effort & Inspection: normal respiratory effort and able to speak in complete sentences Auscultation: clear to auscultation bilaterally, rales bilateral and diffuse and diminished lung sounds Cardio: Other: Jugular venous distension: no JVD Rate: regular rate Rhythm: regular rhythm Heart sounds: S1 normal heart sound present and S2 normal heart sound present GI: Inspection: Yes normal to inspection and No abdominal wall ecchymosis Palpation (GI): Soft to palpation, not firm, nontender, no guarding and not rigid Auscultation: normal bowel sounds : General: No CVA tenderness and Yes no CVA tenderness Back/Spine/Pelvis: Back: no CVA tenderness, No CVA tenderness and No back tenderness Skin: General skin exam: rashes and/or lesions noted Neuro: General: oriented to person, oriented to place, oriented to time, patient oriented x3, gait normal, no meningeal signs and CN's II-XI intact bilaterally Cranial nerves: Yes CN's II-XII intact bilaterally and Yes Equal, round and reactive pupils present Extrem: General: Yes normal to inspection, Yes full ROM and No edema Psych: Appearance: grossly normal and well kempt Objective Data Labs CBC & Chem 7: 03/25/20 05:13 03/25/20 05:13 Labs: Laboratory Results - last 24 hr 03/24/20 03/24/20 03/24/20 05:40 10:53 16:20 WBC RBC Hgb Hct MCV MCH MCHC RDW Plt Count MPV Immature Gran % (Auto) Neut % (Auto) Lymph % (Auto) [place] % (Auto) Eos % (Auto) Baso % (Auto) Lymph # (Auto) [place] # (Auto) Eos # (Auto) Baso # (Auto) Abs Immat Gran (auto) Absolute Neuts (auto) Absolute Nucleated RBC Nucleated RBC % (auto) Smear Tech's Comments D-Dimer ABG pH ABG pCO2 ABG pO2 ABG HCO3 ABG O2 Saturation ABG Base Excess VBG pH VBG pCO2 VBG pO2 VBG HCO3 VBG O2 Saturation VBG Base Excess Oxygen Given Sodium Potassium Chloride Carbon Dioxide Anion Gap BUN Creatinine Estim Creat Clear Calc Estimated GFR POC Glucose 325 H 169 H Random Glucose Calcium Phosphorus 4.5 Magnesium 1.5 L Ferritin C-Reactive Protein Albumin 2.6 L D Procalcitonin 03/24/20 03/24/2003/25/21 19:47 20:44 00:01 WBC RBC Hgb Hct MCV MCH MCHC RDW Plt Count MPV Immature Gran % (Auto) Neut % (Auto) Lymph % (Auto) [place] % (Auto) Eos % (Auto) Baso % (Auto) Lymph # (Auto) [place] # (Auto) Eos # (Auto) Baso # (Auto) Abs Immat Gran (auto) Absolute Neuts (auto) Absolute Nucleated RBC Nucleated RBC % (auto) Smear Tech's Comments D-Dimer ABG pH 7.47 H ABG pCO2 39 ABG pO2 43 L* ABG HCO3 28 H ABG O2 Saturation 84.8 ABG Base Excess 3.7 VBG pH VBG pCO2 VBG pO2 VBG HCO3 VBG O2 Saturation VBG Base Excess Oxygen Given 100% Sodium Potassium Chloride Carbon Dioxide Anion Gap BUN Creatinine Estim Creat Clear Calc Estimated GFR POC Glucose 141 H 184 H Random Glucose Calcium Phosphorus Magnesium Ferritin C-Reactive Protein Albumin Procalcitonin 03/25/20 03/25/20 03/25/20 05:13 05:13 05:13 WBC 20.6 H RBC 4.02 L Hgb 12.8 L Hct 40.2 L MCV 100.0 H MCH 31.8 MCHC 31.8 RDW 13.9 Plt Count 144 L MPV 13.0 H Immature Gran % (Auto) 1.4 H Neut % (Auto) 90.0 H Lymph % (Auto) 2.4 L [place] % (Auto) 6.1 Eos % (Auto) 0.0 Baso % (Auto) 0.1 Lymph # (Auto) 0.5 L [place] # (Auto) 1.3 H Eos # (Auto) 0.0 Baso # (Auto) 0.0 Abs Immat Gran (auto) 0.28 H Absolute Neuts (auto) 18.6 H Absolute Nucleated RBC 0.020 H Nucleated RBC % (auto) 0.1 Smear Tech's Comments VERIFIED D-Dimer 779 ABG pH ABG pCO2 ABG pO2 ABG HCO3 ABG O2 Saturation ABG Base Excess VBG pH VBG pCO2 VBG pO2 VBG HCO3 VBG O2 Saturation VBG Base Excess Oxygen Given Sodium 146 H Potassium 4.4 Chloride 106 Carbon Dioxide 27 Anion Gap 17 BUN 83 H* D Creatinine 2.13 H Estim Creat Clear Calc 20.8 Estimated GFR 30 POC Glucose Random Glucose 390 H* Calcium 7.4 L Phosphorus 6.0 H Magnesium 2.1 Ferritin 1217 H C-Reactive Protein 5.88 H Albumin Procalcitonin 03/25/20 03/25/20 03/25/20 05:13 05:13 08:42 WBC RBC Hgb Hct MCV MCH MCHC RDW Plt Count MPV Immature Gran % (Auto) Neut % (Auto) Lymph % (Auto) [place] % (Auto) Eos % (Auto) Baso % (Auto) Lymph # (Auto) [place] # (Auto) Eos # (Auto) Baso # (Auto) Abs Immat Gran (auto) Absolute Neuts (auto) Absolute Nucleated RBC Nucleated RBC % (auto) Smear Tech's Comments D-Dimer ABG pH ABG pCO2 ABG pO2 ABG HCO3 ABG O2 Saturation ABG Base Excess VBG pH 7.29 L VBG pCO2 56 VBG pO2 38 VBG HCO3 27 VBG O2 Saturation 62.6 VBG Base Excess -0.9 Oxygen Given Sodium Potassium Chloride Carbon Dioxide Anion Gap BUN Creatinine Estim Creat Clear Calc Estimated GFR POC Glucose 345 H Random Glucose Calcium Phosphorus Magnesium Ferritin C-Reactive Protein Albumin Procalcitonin 0.62 Microbiology Microbiology Results: Microbiology 03/08/20 06:39 Blood - Venous Blood Culture - Final No growth after 5 days. 03/08/20 06:39 Blood - Venous Blood Culture - Final No growth after 5 days. 03/06/20 19:07 Blood - Venous Blood Culture - Final No growth after 5 days. 03/06/20 19:07 Blood - Venous Blood Culture - Final No growth after 5 days. 03/05/20 13:44 Blood - Venous Blood Culture - Final No growth after 5 days. 03/05/20 13:29 Blood - Venous Blood Culture - Final No growth after 5 days. Assessment & Plan Assessment and plan (1) Acute respiratory failure with hypoxia: Status: Acute Assessment and Plan: 1. Oliguric LEI: c/w sepsis assoc ATN vs pre-renal; AIN/AGN and acute Obs seem unlikely 2. Sepsis: fever, incr wbc and hyportension: getting aggressive ICU management 3. Resp Faiure: on vent 4. Incr Bun/Cr: d/t steroids, decr renal perfusion REC: aggree with IVF resusitation; urine studies, sepsis management; no indication for HD yet but willfollow closley with ICU (2) Metabolic acidosis: Status: Acute (3) Hyponatremia: Status: Acute (4) Pneumonia: Status: Acute (5) COVID-19: Status: Acute Time Spent With Patient Time: Total time spent is greater than 50% in coordination of care (as documented) at patient's floor/unit and/or counseling patient:
[2020-03-25 10:31] LABS: Base Excess VBG -3.5 mmol/L; HCO3 VBG 24 mmol/L; PCO2 VBG 59 mmHg; PO2 VBG 101 mmHg; pH VBG 7.22 (7.32-7.43)
--- NOTE | 2020-03-25 10:33 | XR_ITS ---
EXAMINATION: XR CHEST CLINICAL INFORMATION: OG placement COMPARISON: March 24, 2020 and March 14, 2020 TECHNIQUE: AP portable view of the chest was obtained. FINDINGS: Endotracheal tube tip is seen approximately 6 cm above the winifred. Enteric tube is seen traversing to the stomach and is coiled in the fundus. A left internal jugular central venous catheter in place with tip at the caval atrial junction. There is again noted to be diffuse bilateral disease without significant change. No pneumothorax or pleural effusion. Heart normal size. No evidence of pulmonary edema. XR/XR chest 1V IMPRESSION: Oral gastric tube seen traversing to the stomach. No significant change in diffuse bilateral lung disease.
[2020-03-25 10:59] LABS: Lactic Acid 3.4 mmol/L (0.5-2.0)
--- NOTE | 2020-03-25 11:04 | MHC.CLN ---
F/U RECOMMEND D/C PPN; [facility] REC[facility] TO START TF NEPRO AT MAX GOAL RATE 30CC/HR TO PROVIDE 1296KCALS (1657KCALS WITH SEDATION; 29KCALS/KG), 58G PROTEIN (1.0G/KG), 523CC FREE WATER FROM FORMULA MONITOR TOLERANCE, RESIDUALS AND LYTES
[2020-03-25] MEDS: Dextrose 5 % 1,000 ML 50 ML IVCONT (11:27)
[2020-03-25 11:52] LABS: Glucose, Whole Blood 362 mg/dL (60-115)
[2020-03-25 12:25] LABS: Reflex Lactate? Lactic Acid Added
[2020-03-25] MEDS: propofoL 1,000 MG/100 ML VIAL 10.26 MG IVCONT (12:57)
[2020-03-25] MEDS: Chlorhexidine Gluc Oral Rinse 15 ML MOUTHWASH BUCCAL (13:13)
[2020-03-25] MEDS: Insulin Regular/NS 100 UNIT/100 ML PLAST..BAG IVCONT (13:16)
[2020-03-25] MEDS: Insulin Regular, Human 100 UNIT/ML 3 ML VIAL 10 UNIT IVPUSH (13:20)
[2020-03-25 13:52] LABS: Glucose Urine UA NEG (NEG); Leukocyte Esterase Urine NEG (NEG); Nitrite Urine NEG (NEG); Specific Gravity - Urine >= 1.030 (1.005-1.025); Urine Blood TRACE (NEG); Urine Ketones NEG (NEG); Urine Protein TRACE MG/DL (NEG-TRACE)
[2020-03-25 13:57] LABS: Appearance Urine CLEAR; Color Urine YELLOW
[2020-03-25 14:06] LABS: Bacteria Urine TRACE /LPF; Mucus Urine TRACE /LPF; Squamous Epithelial Cell Urine TRACE /LPF
[2020-03-25 14:08] LABS: Hyaline Casts Urine 0-2 /LPF
[2020-03-25 15:29] LABS: EOS Counted 0 CELLS; EOS QC POS YES; EOS Stain Quality OK YES; WBC, Counted 100 CELLS
--- NOTE | 2020-03-25 15:35 | W.PM.CCHP ---
Procedures Arterial Line Arterial Line Comments: PROCEDURE: Insertion left femoral arterial line. Indications: Acute respiratory failure, COVID pneumonia, Viral septic shock. Anesthesia: Local. The right groin was shaved and prepped and draped. The femoral artery was cannulated directly on the second pass with the 18 gauge thin wall and the wire advanced without incident. The arrow 18g x 6? femoral arterial cannula was inserted via Seldinger technique without complications and sutured in place with 3-0 silk x 3. There was a good wave form. A biopatch and dry sterile dressing were applied. The patient tolerated the procedure well with no complications. Consent: Emergent-no informed consent obtained
--- NOTE | 2020-03-25 15:49 | PC.NURSE ---
0920 RT at bedside increasing PEEP to 12 per MD Erika, pt did not tolerate SaO2 down to 79% RT began to use ambubag met with heavy resistance by patient, TV were low at 300ml. BP dropped to 60/30 HR 130. Vasopressin started at 0.04mcg/kg/min per MD Erika at bedside. Bedside echo completed. Nimbex 10mg IVP given per MD order as pt was breathing against ventilator, with positive therapeutic effect. 25G Albumin given to help with BP, with positive effect 100/60. At this time vent settings were changed by RT to pressure control 14 I pressure 26 PEEP 10, FiO2 70% with SaO2 92%. Esmolol drip was started at 25mcg/kg/min per , HR down to 110. Throughout shift BP and SaO2 dropped again x2 and vent settings were changed to RR 18 and 10mg IVP nimbex given then drip started at 2mcg/kg/min and 25G albumin given x2 with short term positive effect on BP. Vasopressin was increased to 0.1mcg/kg/min per Erika CHAVEZ, norepinephrine continued at 0.5mcg/kg/min, attempted to titrate down to 0.4mcg, BP dropped, back up to 0.5. OG tube inserted by MD Erika CXR obtained. BP down again and Erika CHAVEZ placed arterial line in right femoral artery. Temp up to 103, lactic 3.4, VBG obtained, MD aware. Bed locked and in lowest position.
[2020-03-25 16:01] LABS: Glucose, Whole Blood 210 mg/dL (60-115)
[2020-03-25 16:01] LABS: Glucose, Whole Blood 251 mg/dL (60-115)
[2020-03-25] MEDS: vancomycin HCL 1,000 MG in 0.9 % Sodium Chloride 250 ML 270 MG IV (16:17)
[2020-03-25] MEDS: Sodium Bicarbonate 8.4% 50 MEQ/50 ML SYRINGE IVPUSH (16:43)
[2020-03-25 16:49] LABS: Cancel Lactic Acid Canceled
[2020-03-25 17:12] LABS: Glucose, Whole Blood 180 mg/dL (60-115)
[2020-03-25 17:23] LABS: Pt Ventilation O2% 100%
[2020-03-25 17:32] LABS: ABG PCO2 70 mmHg (32-45); Base Excess ABG -1.3; HCO3 ABG 26 mmol/L (22-26); PO2 ABG 143 mmHg (83-108)
[2020-03-25 17:34] LABS: pH ABG 7.19 (7.35-7.45)
[2020-03-25 18:05] LABS: Glucose, Whole Blood 177 mg/dL (60-115)
[2020-03-25 18:15] LABS: Creatinine Urine 106.84 mg/dL
--- NOTE | 2020-03-25 18:35 | P.PNCC_ITS ---
Subjective Subjective Date of Service: 03/25/20 Interval History: Mr. Gino Rodriguez was admitted to the ICU last night with acute respiratory failure secondary to bilateral COVID pneumonia. The patient is an 85-year-old gentleman with underlying history of COPD, hypertension, diabetes, and hyperlipidemia. According to his granddaughter Elizabeth [phone]), he was generally healthy and living alone, functionally independent. 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 He had presented to the emergency room on 03/05/2020 with complaints of generalized body aches, malaise, fever, chills, chest discomfort, nausea, vomiting. He was found to COVID positive. Had some degree of renal failure, V/Q scan had been done due to elevated D-dimer and this showed no concern for PE. The patient was admitted to medicine and treated with Decadron and plasma. He did not get remdesivir. Over the first few days, he was doing OK on nasal cannula oxygen or even room air. On 03/09, he had to go on NRBFM, and then onto HFNC. According to the resp therapist, for the last many days, they?ve struggled to maintain his oxygenation on HFNC + NRBFM. I don?t see any notes in the chart about code status conversations with the family. The chart notes seem to indicate that he?d improved to the point that he was only on NRBFM for 03/21 and 03/22. But then yesterday they had to add HFNC again. Last night the Sat deteriorated to 60% and the staff was unable to improve the situation better than a Sat of 80%. The patient was therefore placed on CPAP and transferred to ICU. After arrival to ICU, the patient began to deteriorate further and in short order required tracheal intubation with pressor support. A CVL was placed. Overnite, we were able to get his FiO2 down to 70%, but he required increasing vasopressor support. He was up to Levophed 0.5ug this morning. See Vital Signs below. On my bedside echo this morning, I was unable to obtain any images from the parasternal axis or apical four-chamber views. Subcostal imaging obtained adequate but off angle views of the heart. LV wall thickness might be increased. LV function though is hyperdynamic and the LV cavity looks small. No regional wall motion abnormalities noted. RV cavity visualized off angle m ight be large, I could not say. IVC was normal sized with minimal inspiratory collapse with the patient on mechanical ventilation. The conclusion was that the patient was dry. Therefore we bolused her with 100 cc of 25% albumin, with an excellent hemodynamic response. With that, his pulse oximeter waveform also improved dramatically. We gave him another bolus of albumin not long after that. I called the patient?s granddaughter, Elizabeth Fernández [phone]) and discussed the grave prognosis with her, teresa given his age and acute respiratory failure due to coronavirus infection, and then superimposed worsening renal function. I estimated to her that his survive ability was about 1%, at most. It appeared to me that she had no familiarity with the physiologic and end of life concepts I was discussing, and no grasp of the situation. I asked her if she could come in and bring her on to with her. They agreed. Later on the day, the patient's hemodynamics continued to deteriorate. We added vasopressin and started him on antibiotics. An arterial line was placed which confirmed his blood pressure treat in the 60-80 range. We upped his vasopressin to 0.1 units, and I upped his steroid dose to 1 mg/kg daily. PaO2 was 143 on FiO2 100% w 10cm peep. We adjusted his ventilator settings mult times thru the day. Ultimately the patient's granddaughter and the patient's daughter came in. I spent some time with them in the room. Three other family members then came in and we all joint them with a prototype machinist down in the lobby. We spoke for some time. I discussed his course with them and indicated that he was failing maximal treatment and that he was not going to survive. I suggested that the best course of action would be to stop aggressive treatment and let him be in peace. They asked us not to pull the plug, so I promised we would not. When the discussion broke up, they asked us to call one of the patient's other daughters at home so she could face time with the patient. Ultimately, with the patient's blood pressure remaining in the 60s on maximal vasopressors, at about 18:30 the patient's suddenly jerald?d and became progressively hypotensive, and then the arterial line flat-lined. There was pulseless electrical activity for about another minute or two and then he went asystolic at about 1843. I called the granddaughter and let her know. Critical care time (including extended chart review, mult visits to the bedside, and mult family discussions; excluding procedures): 2.5 hrs + Physical Exam Vital Signs: Vital Signs: Last Vital Signs Temp 101.5 F H 03/25/20 17:00 Pulse 115 H 03/25/20 18:00 Resp 24 H 03/25/20 18:00 BP 62/39 L 03/25/20 18:00 Pulse Ox 60 L 03/25/20 18:00 Body Mass Index 20.2 Objective Data Labs CBC & Chem 7: 03/25/20 05:13 03/25/20 05:13 Labs: Laboratory Results - last 24 hr 03/24/20 03/24/20 03/25/20 19:47 20:44 00:01 WBC RBC Hgb Hct MCV MCH MCHC RDW Plt Count MPV Immature Gran % (Auto) Neut % (Auto) Lymph % (Auto) [place] % (Auto) Eos % (Auto) Baso % (Auto) Lymph # (Auto) [place] # (Auto) Eos # (Auto) Baso # (Auto) Abs Immat Gran (auto) Absolute Neuts (auto) Absolute Nucleated RBC Nucleated RBC % (auto) Smear Tech's Comments D-Dimer ABG pH 7.47 H ABG pCO2 39 ABG pO2 43 L* ABG HCO3 28 H ABG O2 Saturation 84.8 ABG Base Excess 3.7 VBG pH VBG pCO2 VBG pO2 VBG HCO3 VBG O2 Saturation VBG Base Excess Oxygen Given 100% Sodium Potassium Chloride Carbon Dioxide Anion Gap BUN Creatinine Estim Creat Clear Calc Estimated GFR POC Glucose 141 H 184 H Random Glucose Lactic Acid Calcium Phosphorus Magnesium Ferritin C-Reactive Protein Procalcitonin Urine Color Urine Appearance Urine pH Ur Specific [place] Urine Protein Urine Glucose (UA) Urine Ketones Urine Blood Urine Nitrite Ur Leukocyte Esterase Urine RBC Urine WBC Ur Squamous Epith Cells Urine Bacteria Hyaline Casts Urine Mucus Urine Yeast Urine Eosinophils % Ur Random Sodium Urine Creatinine 03/25/20 03/25/20 03/25/20 05:13 05:13 05:13 WBC 20.6 H RBC 4.02 L Hgb 12.8 L Hct 40.2 L MCV 100.0 H MCH 31.8 MCHC 31.8 RDW 13.9 Plt Count 144 L MPV 13.0 H Immature Gran % (Auto) 1.4 H Neut % (Auto) 90.0 H Lymph % (Auto) 2.4 L [place] % (Auto) 6.1 Eos % (Auto) 0.0 Baso % (Auto) 0.1 Lymph # (Auto) 0.5 L [place] # (Auto) 1.3 H Eos # (Auto) 0.0 Baso # (Auto) 0.0 Abs Immat Gran (auto) 0.28 H Absolute Neuts (auto) 18.6 H Absolute Nucleated RBC 0.020 H Nucleated RBC % (auto) 0.1 Smear Tech's Comments VERIFIED D-Dimer 779 ABG pH ABG pCO2 ABG pO2 ABG HCO3 ABG O2 Saturation ABG Base Excess VBG pH VBG pCO2 VBG pO2 VBG HCO3 VBG O2 Saturation VBG Base Excess Oxygen Given Sodium 146 H Potassium 4.4 Chloride 106 Carbon Dioxide 27 Anion Gap 17 BUN 83 H* D Creatinine 2.13 H Estim Creat Clear Calc 20.8 Estimated GFR 30 POC Glucose Random Glucose 390 H* Lactic Acid Calcium 7.4 L Phosphorus 6.0 H Magnesium 2.1 Ferritin 1217 H C-Reactive Protein 5.88 H Procalcitonin Urine Color Urine Appearance Urine pH Ur Specific [place] Urine Protein Urine Glucose (UA) Urine Ketones Urine Blood Urine Nitrite Ur Leukocyte Esterase Urine RBC Urine WBC Ur Squamous Epith Cells Urine Bacteria Hyaline Casts Urine Mucus Urine Yeast Urine Eosinophils % Ur Random Sodium Urine Creatinine 03/25/20 03/25/20 03/25/20 05:13 05:13 08:42 WBC RBC Hgb Hct MCV MCH MCHC RDW Plt Count MPV Immature Gran % (Auto) Neut % (Auto) Lymph % (Auto) [place] % (Auto) Eos % (Auto) Baso % (Auto) Lymph # (Auto) [place] # (Auto) Eos # (Auto) Baso # (Auto) Abs Immat Gran (auto) Absolute Neuts (auto) Absolute Nucleated RBC Nucleated RBC % (auto) Smear Tech's Comments D-Dimer ABG pH ABG pCO2 ABG pO2 ABG HCO3 ABG O2 Saturation ABG Base Excess VBG pH 7.29 L VBG pCO2 56 VBG pO2 38 VBG HCO3 27 VBG O2 Saturation 62.6 VBG Base Excess -0.9 Oxygen Given Sodium Potassium Chloride Carbon Dioxide Anion Gap BUN Creatinine Estim Creat Clear Calc Estimated GFR POC Glucose 345 H Random Glucose Lactic Acid Calcium Phosphorus Magnesium Ferritin C-Reactive Protein Procalcitonin 0.62 Urine Color Urine Appearance Urine pH Ur Specific [place] Urine Protein Urine Glucose (UA) Urine Ketones Urine Blood Urine Nitrite Ur Leukocyte Esterase Urine RBC Urine WBC Ur Squamous Epith Cells Urine Bacteria Hyaline Casts Urine Mucus Urine Yeast Urine Eosinophils % Ur Random Sodium Urine Creatinine 03/25/20 03/25/20 03/25/20 10:15 10:23 11:47 WBC RBC Hgb Hct MCV MCH MCHC RDW Plt Count MPV Immature Gran % (Auto) Neut % (Auto) Lymph % (Auto) [place] % (Auto) Eos % (Auto) Baso % (Auto) Lymph # (Auto) [place] # (Auto) Eos # (Auto) Baso # (Auto) Abs Immat Gran (auto) Absolute Neuts (auto) Absolute Nucleated RBC Nucleated RBC % (auto) Smear Tech's Comments D-Dimer ABG pH ABG pCO2 ABG pO2 ABG HCO3 ABG O2 Saturation ABG Base Excess VBG pH 7.22 L VBG pCO2 59 VBG pO2 101 VBG HCO3 24 VBG O2 Saturation 94.0 VBG Base Excess -3.5 Oxygen Given Sodium Potassium Chloride Carbon Dioxide Anion Gap BUN Creatinine Estim Creat Clear Calc Estimated GFR POC Glucose 362 H* Random Glucose Lactic Acid 3.4 H* Calcium Phosphorus Magnesium Ferritin C-Reactive Protein Procalcitonin Urine Color Urine Appearance Urine pH Ur Specific [place] Urine Protein Urine Glucose (UA) Urine Ketones Urine Blood Urine Nitrite Ur Leukocyte Esterase Urine RBC Urine WBC Ur Squamous Epith Cells Urine Bacteria Hyaline Casts Urine Mucus Urine Yeast Urine Eosinophils % Ur Random Sodium Urine Creatinine 03/25/20 03/25/20 03/25/20 11:52 11:52 14:28 WBC RBC Hgb Hct MCV MCH MCHC RDW Plt Count MPV Immature Gran % (Auto) Neut % (Auto) Lymph % (Auto) [place] % (Auto) Eos % (Auto) Baso % (Auto) Lymph # (Auto) [place] # (Auto) Eos # (Auto) Baso # (Auto) Abs Immat Gran (auto) Absolute Neuts (auto) Absolute Nucleated RBC Nucleated RBC % (auto) Smear Tech's Comments D-Dimer ABG pH ABG pCO2 ABG pO2 ABG HCO3 ABG O2 Saturation ABG Base Excess VBG pH VBG pCO2 VBG pO2 VBG HCO3 VBG O2 Saturation VBG Base Excess Oxygen Given Sodium Potassium Chloride Carbon Dioxide Anion Gap BUN Creatinine Estim Creat Clear Calc Estimated GFR POC Glucose 251 H Random Glucose Lactic Acid Calcium Phosphorus Magnesium Ferritin C-Reactive Protein Procalcitonin Urine Color YELLOW Urine Appearance CLEAR Urine pH 5.0 Ur Specific [place] >= 1.030 H Urine Protein TRACE Urine Glucose (UA) NEG Urine Ketones NEG Urine Blood TRACE Urine Nitrite NEG Ur Leukocyte Esterase NEG Urine RBC 5-9 H Urine WBC 1-4 Ur Squamous Epith Cells TRACE Urine Bacteria TRACE Hyaline Casts 0-2 Urine Mucus TRACE Urine Yeast TRACE Urine Eosinophils % 0.0 Ur Random Sodium Urine Creatinine 03/25/20 03/25/20 03/25/20 15:50 17:08 17:17 WBC RBC Hgb Hct MCV MCH MCHC RDW Plt Count MPV Immature Gran % (Auto) Neut % (Auto) Lymph % (Auto) [place] % (Auto) Eos % (Auto) Baso % (Auto) Lymph # (Auto) [place] # (Auto) Eos # (Auto) Baso # (Auto) Abs Immat Gran (auto) Absolute Neuts (auto) Absolute Nucleated RBC Nucleated RBC % (auto) Smear Tech's Comments D-Dimer ABG pH 7.19 L* ABG pCO2 70 H* ABG pO2 143 H ABG HCO3 26 ABG O2 Saturation 98.0 ABG Base Excess -1.3 VBG pH VBG pCO2 VBG pO2 VBG HCO3 VBG O2 Saturation VBG Base Excess Oxygen Given 100% Sodium Potassium Chloride Carbon Dioxide Anion Gap BUN Creatinine Estim Creat Clear Calc Estimated GFR POC Glucose 210 H 180 H Random Glucose Lactic Acid Calcium Phosphorus Magnesium Ferritin C-Reactive Protein Procalcitonin Urine Color Urine Appearance Urine pH Ur Specific [place] Urine Protein Urine Glucose (UA) Urine Ketones Urine Blood Urine Nitrite Ur Leukocyte Esterase Urine RBC Urine WBC Ur Squamous Epith Cells Urine Bacteria Hyaline Casts Urine Mucus Urine Yeast Urine Eosinophils % Ur Random Sodium Urine Creatinine 03/25/20 03/25/20 17:54 Unknown WBC RBC Hgb Hct MCV MCH MCHC RDW Plt Count MPV Immature Gran % (Auto) Neut % (Auto) Lymph % (Auto) [place] % (Auto) Eos % (Auto) Baso % (Auto) Lymph # (Auto) [place] # (Auto) Eos # (Auto) Baso # (Auto) Abs Immat Gran (auto) Absolute Neuts (auto) Absolute Nucleated RBC Nucleated RBC % (auto) Smear Tech's Comments D-Dimer ABG pH ABG pCO2 ABG pO2 ABG HCO3 ABG O2 Saturation ABG Base Excess VBG pH VBG pCO2 VBG pO2 VBG HCO3 VBG O2 Saturation VBG Base Excess Oxygen Given Sodium Potassium Chloride Carbon Dioxide Anion Gap BUN Creatinine Estim Creat Clear Calc Estimated GFR POC Glucose 177 H Random Glucose Lactic Acid Calcium Phosphorus Magnesium Ferritin C-Reactive Protein Procalcitonin Urine Color Urine Appearance Urine pH Ur Specific [place] Urine Protein Urine Glucose (UA) Urine Ketones Urine Blood Urine Nitrite Ur Leukocyte Esterase Urine RBC Urine WBC Ur Squamous Epith Cells Urine Bacteria Hyaline Casts Urine Mucus Urine Yeast Urine Eosinophils % Ur Random Sodium 38.0 Urine Creatinine 106.84 Microbiology Microbiology Results: Microbiology 03/08/20 06:39 Blood - Venous Blood Culture - Final No growth after 5 days. 03/08/20 06:39 Blood - Venous Blood Culture - Final No growth after 5 days. 03/06/20 19:07 Blood - Venous Blood Culture - Final No growth after 5 days. 03/06/20 19:07 Blood - Venous Blood Culture - Final No growth after 5 days. 03/05/20 13:44 Blood - Venous Blood Culture - Final No growth after 5 days. 03/05/20 13:29 Blood - Venous Blood Culture - Final No growth after 5 days. Progress Note: A&P Time Spent With Patient Time: Total time spent is greater than 50% in coordination of care (as documented) at patient's floor/unit and/or counseling patient: Total time spent with greater than 50% in coordination of care (as documented) at patient's floor/unit and/or counseling patient:: 0 Critical Care Time Critical Care Time (minutes): 150
--- NOTE | 2020-03-25 19:02 | PC.NURSE ---
FAMILY BEDSIDE AND FAMILY MEETING WITH GEROPSYCHOLOGIST SERVICES AND MORE FAMILY HELD IN LOBBY. ANTIBIOTICS X 2 ADMINISTERED ORDERED. 1 AMP SODIUM BICARB GIVEN IVP ORDERED. [place] RE-ADJUSTED BY , DRESSING CHANGED BY . TLC DRESSING CHANGED BY RN. 1833 PT BEGAN TO GRETCHEN DOWN, GARLAND READING 14/. AND RN BEDSIDE. ASYSTOLE AND TOD 1842. FAMILY NOTIFIED BY OF . NEOB CALLED AND CASE DENIED #[id number] BY DI.
--- NOTE | 2020-03-26 15:25 | P.DN_ITS ---
Discharge Sum: Prov Provider Primary care physician: Merna Duggan MD Consults: 03/05/20 16:50 Consult to Infectious Diseases Routine Consulting Provider: Roro Viera Reason for consultation: COVID PNEUMONIA Has provider been notified: No 03/09/20 00:10 Consult to Nephrology Stat Consulting Provider: Fausto Ramirez Reason for consultation: hyponatremia 03/09/20 08:37 Consult to Pulmonology Routine Consulting Provider: Sunil Rao Reason for consultation: hypoxia Has provider been notified: Yes 03/25/20 16:18 Consult to Infectious Diseases Routine Consulting Provider: Roro Viera Reason for consultation: restricted abx Discharge Sum: Diag Contributing Factors (1) Acute respiratory failure with hypoxia: (2) Metabolic acidosis: (3) Hyponatremia: (4) Pneumonia: (5) COVID-19: Discharge Sum: Summary Date and Time Date of admission: 03/05/20 16:50 Date of : 03/25/20 Time of : 18:43 Summary Details: NOTE DISCHARGE DIAGNOSES: 1. Bilateral COVID-19 pneumonia. 2. Acute hypoxemic respiratory failure. 3. Acute kidney injury. 4. Viral septic shock. 5. Diabetes Mr. Gino Rodriguez was an 85-year-old gentleman with underlying history of COPD, hypertension, diabetes, and hyperlipidemia. He had presented to the emergency room on 03/05/2020 with complaints of gen eralized body aches, malaise, fever, chills, chest discomfort, nausea, vomiting. He was found to be COVID positive. Had some degree of renal failure., V/Q scan done bec of elevated D-dimer showed no concern for PE. The patient was admitted to Medicine and treated with Decadron and convalescent plasma. Over the first few days, he was oxygenating adequately on nasal cannula oxygen or even room air. On March 09, he had to go on NRBFM, and then onto HFNC. As the days went on, the respiratory therapists struggled to maintain his oxygenation on HFNC + NRBFM. Reportedly, by March 21 he?d improved to the point that he was only on NRBFM. But then on March 23, he had to go back on HFNC again. The next night, his Sat deteriorated to 60% and the staff was unable to improve the situation better than a Sat of 80%. The patient was therefore placed on CPAP and transferred to ICU. After arrival to ICU, the patient began to deteriorate further and in short order required tracheal intubation with pressor support. That night he required increasing vasopressor support. He was up to Levophed 0.5ug by the morning. Bedside echo suggested that he was dry. Boluses of 25% albumin resulted in an initially excellent hemodynamic response, but it did not persist, even with repetitive boluses. The patient's hemodynamics continued to deteriorate. We added vasopressin and started him on antibiotics. An arterial line was placed which confirmed the blood pressure in the 60-80 mm systolic range. We upped his vasopressin and his steroid dose. At our request, the patient's granddaughter and the patient's daughter came in to see him. We spent a good deal of time with them and they asked us not to pull the plug. We promised that we would not we indicated that it was unlikely that the patient would survive the night. Ultimately, with the patient's blood pressure remaining in the 60s on maximal vasopressors, at about 18:30 the patient's suddenly jerald?d and became progressively hypotensive, and then the arterial line flat-lined. There was pulseless electrical activity for about another minute or two and then he went asystolic at about 1843. I called the patient's granddaughter and let her know. Additional Data Attending physician: Jabari James
== END 2020-03-25 18:43 | disposition expired | DRG 208 ==
LOC: HO.ED 16:19 → HO.IMC 17:21 → HO.ICU 03-24 20:20
PROVIDERS: Hospitalist; Internal Medicine; Internal Medicine Nephrology; Physician Assistant; Physician Assistant Medical; Student in an Organized Health Care Education/Training Program; Admitting Provider Internal Medicine; Emergency Provider Emergency Medicine; PCP Family Medicine; Visit Provider Anesthesiology
DX: U07.1 COVID-19 (principal); J96.01 Acute respiratory failure with hypoxia; J12.89 Other viral pneumonia; R65.21 Severe sepsis with septic shock; A41.89 Other specified sepsis; N17.9 Acute kidney failure, unspecified; E87.1 Hypo-osmolality and hyponatremia; E87.2 Acidosis; E44.0 Moderate protein-calorie malnutrition; E87.0 Hyperosmolality and hypernatremia; J45.909 Unspecified asthma, uncomplicated; E86.0 Dehydration; E11.65 Type 2 diabetes mellitus with hyperglycemia; Z68.20 Body mass index [BMI] 20.0-20.9, adult; Z88.0 Allergy status to penicillin; Z79.51 Long term (current) use of inhaled steroids; Z79.82 Long term (current) use of aspirin; Z79.899 Other long term (current) drug therapy
CPT/HCPCS: 0241U; 36415; 36600; 71045; 78580; 80048; 80053; 80076; 81001; 82040; 82728; 82803; 82947; 83036; 83605; 83615; 83735; 83880; 83930; 83935; 84100; 84145; 84300; 84484; 85025; 85027; 85379; 85610; 85730; 86140; 86769; 86850; 86900; 86901; 87040; 89190; 92526; 92610; 93005; 93308; 94002; 94003; 94660; 96361; 96365; 96375; 99225; 99285; A9540; C1758; J0330; J0456; J0692; J0696; J1100; J1200; J1650; J1956; J2060; J2185; J2270; J2405; J2920; J2930; J3010; J3370; J3475; P9047